=== PATIENT | male | born 1960 | race Caucasian/White ===

== ENCOUNTER 2024-09-29 20:30 | Inpatient (IN) ==
[2024-09-29] MEDS: ONDANSETRON INJ 2 MG/ML 2 ML VIAL IV STA (20:58)
[2024-09-29] MEDS: SODIUM CHLORIDE 0.9% 500 ML IV ONE ×2 (20:58→22:09)
[2024-09-29 21:38] LABS: Basophils # (auto) 0.04 K/uL (0.00-0.20); Basophils % (auto) 0.5 %; Eosinophils # (auto) 0.14 K/uL (0.00-0.50); Eosinophils % (auto) 1.8 %; Hematocrit (blood only) 41.1 % (42.0-52.0); Hemoglobin 14.3 g/dl (14.0-18.0); Immature Granulocytes # (auto) 0.03 K/uL (0.01-0.20); Immature Granulocytes % (auto) 0.4 %; Lymphocytes % (auto) 22.2 %; Mean Corpuscular Hemoglobin 33.6 pg (25.0-34.0); Mean Corpuscular Hgb Conc 34.8 g/dL (32.0-36.0); Mean Corpuscular Volume 96.7 fL (80.0-100.0); Mean Platelet Volume 10.3 fL (9.4-12.4); Monocytes # (auto) 0.58 K/uL (0.11-0.59); Monocytes % (auto) 7.6 %; Neutrophils # (auto) 5.16 K/uL (1.40-6.50); Neutrophils % (auto) 67.5 %; Platelet Count 256 K/uL (130-400); RDW Standard Deviation 49.8 fL (36.4-46.3); Red Blood Count 4.25 M/uL (4.70-6.10); White Blood Count 7.65 K/ul (4.8-10.8)
[2024-09-29 21:42] LABS: Albumin Level 4.2 gm/dl (3.4-5.0); BUN Creatinine Ratio 8.3 (10-20); Bilirubin,Total 0.5 mg/dl (0.2-1.0); Creatinine Clr Calc Pharmacy 6.9 ml/min; Potassium 5.2 mmol/L (3.5-5.1); Total Protein 7.7 gm/dl (6.0-8.3)
[2024-09-29 21:44] LABS: Partial Thromboplastin Ratio 1.1; Partial Thromboplastin Time 29 Seconds (21-31); Prothrombin Time 10.8 Seconds (9.0-12.0)
[2024-09-29] MEDS: CALCIUM GLUCONATE 1,000 MG/60 ML BAG IV STA (21:49)
[2024-09-29] MEDS: SODIUM CHLORIDE 0.9% 500 ML IV SCH (22:08)
[2024-09-29 22:14] LABS: Adenovirus PCR Not Detected (NotDetected); Bordetella parapertussis PCR Not Detected (NotDetected); Bordetella pertussis PCR Not Detected (NotDetected); Chlamydia pneumoniae PCR Not Detected (NotDetected); Coronavirus 229E PCR Not Detected (NotDetected); Coronavirus CoV-2 (COVID19)PCR Not Detected (NotDetected); Coronavirus HKU1 PCR Not Detected (NotDetected); Coronavirus NL63 PCR Not Detected (NotDetected); Coronavirus OC43PCR Not Detected (NotDetected); Human Metapneumovirus PCR Not Detected (NotDetected); Influenza A PCR Not Detected (NotDetected); Influenza B PCR Not Detected (NotDetected); Mycoplasma pneumoniae PCR Not Detected (NotDetected); Parainfluenza Virus 1 PCR Not Detected (NotDetected); Parainfluenza Virus 2 PCR Not Detected (NotDetected); Parainfluenza Virus 3 PCR Not Detected (NotDetected); Parainfluenza Virus 4 PCR Not Detected (NotDetected); Respiratory Syncytial VirusPCR Not Detected (NotDetected); Rhinovirus/Enterovirus PCR Not Detected (NotDetected)
[2024-09-29 22:46] LABS: Appearance Urine Cloudy (Clear); Bacteria Urine Automated None Seen (None Seen); Bilirubin Urine Negative (Negative); Blood Urine 3+ (Negative); Color Urine Yellow; Epithelial Cell Urine Auto 0-2 /hpf (0-2); Glucose Urine UA Negative (Negative); Ketones Urine Trace (Negative); Leukocyte Esterase Urine Trace (Negative); Nitrite Urine Negative (Negative); Protein Urine 2+ (Negative); RBC Urine Automated >20 /hpf (0-2); Specific Gravity Urine 1.008 (1.000-1.030); Urobilinogen Urine Negative (Negative); pH Urine 6.5 (4.5-7.5)
--- NOTE | 2024-09-29 23:38 | CT Scan Report ---
Exam(s): CT ABDOMEN + PELVIS Without Contrast EXAM: CT Abdomen and Pelvis Without Intravenous Contrast CLINICAL HISTORY: Reason for exam: Acute renal insufficiency.. TECHNIQUE: Axial computed tomography images of the abdomen and pelvis without intravenous contrast. CTDI is 19.56 mGy and DLP is 932.59 mGy-cm. Automated exposure control was utilized for the study. A dose lowering technique was utilized adhering to the principles of ALARA. COMPARISON: No relevant prior studies available. FINDINGS: Lung bases: Unremarkable. No mass. No consolidation. ABDOMEN: Liver: Unremarkable. Gallbladder and bile ducts: Unremarkable. No calcified stones. No ductal dilation. Pancreas: Unremarkable. No ductal dilation. Spleen: Unremarkable. No splenomegaly. Adrenals: Unremarkable. No mass. Kidneys and ureters: There is mild bilateral hydroureter and hydronephrosis. No ureterolithiasis is seen. Consider bladder outlet obstruction. 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 Stomach and bowel: There is diverticulosis of the lower left and sigmoid colon without evidence of acute diverticulitis. The appendix is normal. No acute inflammatory changes are seen involving the bowel. No obstruction. PELVIS: Appendix: See above. Bladder: There is asymmetrical circumferential thickening of the urinary bladder wall measuring up to 1.4 cm. The urinary bladder is only partially distended. Consider cystitis versus neoplasm. No stones. Reproductive: Unremarkable as visualized. ABDOMEN and PELVIS: Intraperitoneal space: Unremarkable. No free air. No significant fluid collection. Bones/joints: Mild degenerative changes involving the spine. No acute fracture or subluxation is seen. Soft tissues: Unremarkable. Vasculature: The abdominal aorta is mildly calcified but nondilated. Lymph nodes: Unremarkable. No enlarged lymph nodes. IMPRESSION: 1. There is asymmetrical circumferential thickening of the urinary bladder wall measuring up to 1.4 cm. The urinary bladder is only partially distended. Consider cystitis versus neoplasm. 2. There is mild bilateral hydroureter and hydronephrosis. No ureterolithiasis is seen. Consider bladder outlet obstruction. 3. 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 4. There is diverticulosis of the lower left and sigmoid colon without evidence of acute diverticulitis. The appendix is normal. No acute inflammatory changes are seen involving the bowel. Electronically signed by: Clint Botello MD 09/29/24 23:37 PM
--- NOTE | 2024-09-30 00:56 | Emergency Department Note ---
History of Present Illness General Chief complaint: Vomiting Stated complaint: VOMITING, DIARREHA, DEHYDRATED Time Seen by Provider: 09/29/24 20:54 History of Present Illness Provider Complaint: + nausea, + vomiting and + diarrhea Onset (ago): day(s) 4 Description of Vomiting: no bilious, no blood-streaked, no bloody or no coffee grounds Description of Diarrhea: no mucousy, no tarry, no blood-streaked or no bloody (bright red) Associated Abdominal Pain: No Context: no foreign travel, no possible food poisoning, no recent antibiotic use, no alcohol abuse, no trauma, no NSAID use or no marijuana use Associated symptoms: no myalgias, no chest pain, no cough, no diaphoresis, no fever/chills, no headaches, no malaise, no dysuria or no weakness Home Medications Medication Instructions Recorded Confirmed Type No Known Home Medications 09/30/24 09/30/24 History Allergies Allergy/AdvReac Type Severity Reaction Status Date / Time No Known Allergies Allergy Unverified 09/30/24 00:31 Past Med/Surg History Problem List (Updated 09/30/24 @ 00:56 by Davidson Epps MD) MICHELE (acute kidney injury) (Acute) Social History Smoking Status: Former smoker Preferred Language: Ma[place] Feels Safe at Home: Yes Physical Exam 2 Vital Signs: Vital Signs - 24 hr 09/29/24 20:33 09/29/24 20:46 09/29/24 20:54 Temperature 36.4 C L Temperature Source Temporal Artery Sc an Pulse Rate 73 70 Pulse Rate [Apical ] 64 Pulse Rhythm Pulse Rhythm [Apic al] Regular Pulse Strength [Ap ical] Normal Respiratory Rate 16 20 Respiratory Effort / Characteristics Non-Labored Non-Labored Sponta neous Respiratory Depth Normal Normal Respiratory Patter n Regular Regular Blood Pressure 178/98 H Blood Pressure [Ri ght Arm] 173/112 H Blood Pressure Kiera n 124 Blood Pressure Kiera n [Right Arm] 132 Blood Pressure Pos ition [Right Arm] Pulse Oximetry 97 95 Oxygen Delivery Me thod Room Air Room Air Sepsis Recent Feve r Within 48 Hours No Sepsis New/Unexpla ined Change in Men [place] Status N/A Sepsis Action Take n by Nursing No Action Required 09/29/24 20:54 09/29/24 22:22 09/30/24 00:00 Temperature Temperature Source Pulse Rate 63 Pulse Rate [Apical ] 73 70 Pulse Rhythm Regular Pulse Rhythm [Apic al] Regular Regular Pulse Strength [Ap ical] Normal Normal Respiratory Rate 18 16 18 Respiratory Effort / Characteristics Non-Labored Sponta neous Non-Labored Sponta neous Respiratory Depth Normal Normal Respiratory Patter n Regular Regular Blood Pressure Blood Pressure [Ri ght Arm] 176/99 H 144/81 H Blood Pressure Kiera n Blood Pressure Kiera n [Right Arm] 124 102 Blood Pressure Pos ition [Right Arm] Lying Left Lateral Pulse Oximetry 97 95 Oxygen Delivery Me thod Room Air Room Air Sepsis Recent Feve r Within 48 Hours Sepsis New/Unexpla ined Change in Men [place] Status Sepsis Action Take n by Nursing 09/30/24 00:37 Temperature Temperature Source Pulse Rate 71 Pulse Rate [Apical ] Pulse Rhythm Pulse Rhythm [Apic al] Pulse Strength [Ap ical] Respiratory Rate Respiratory Effort / Characteristics Respiratory Depth Respiratory Patter n Blood Pressure Blood Pressure [Ri ght Arm] Blood Pressure Kiera n Blood Pressure Kiera n [Right Arm] Blood Pressure Pos ition [Right Arm] Pulse Oximetry Oxygen Delivery Me thod Sepsis Recent Feve r Within 48 Hours Sepsis New/Unexpla ined Change in Men [place] Status Sepsis Action Take n by Nursing Physical Exam: Physical Exam GENERAL: oriented to person, place, and time. appears well-developed and well- nourished. She does not appear distressed. HENT: Exam performed. -Head: Normocephalic and atraumatic. -Right Ear: External ear normal. No mastoid erythema -Left Ear: External ear normal. No mastoid erythema -Mouth/Throat: The oropharynx is clear and moist. No trismus in the jaw. No dental abscesses or uvula swelling. No oropharyngeal exudate or tonsillar abscesses. EYES: Conjunctivae and EOM are normal.Right eye exhibits no discharge. Left eye exhibits no discharge. No scleral icterus. NECK: Normal range of motion. Neck supple. No JVD present. No tracheal deviation and normal range of motion present. CV: Normal rate, regular rhythm, normal heart sounds and intact distal pulses. There is no peripheral edema. Palpable radial pulses bue. PULM/CHEST: Effort normal and breath sounds normal. No respiratory distress. No stridor. no wheezes.no rales. -Chest Wall: no tenderness to palpation ABD: The abdomen is soft. Bowel sounds are normal. no distension. No mass is present. There is no tenderness. There is no rebound, no guarding, no South's sign and no tenderness at McBurney's point. Rovsig negative MUSC/SKEL: Normal range of motion. There is no peripheral edema, tenderness or deformity. NEURO: Motor and sensation grossly intact. SKIN: Skin is warm and dry. not diaphoretic. PSYCH: normal mood and affect. Behavior is normal. Judgment and thought content normal. Course Course 2053: The patient was evaluated in room B12. A complete history and physical exam was performed Cardiac monitoring: An order was placed for continuous cardiac monitoring. The monitor shows a rate of 70 with sinus rhythm interpreted by ne 2140: Received a call that the patient's BUN is greater than 100 and creatinine is greater than 12. Patient reports no history of kidney disease. Cramer catheter replaced. Potassium 5.2. Calcium gluconate ordered for the patient. Will obtain CT scan to rule out any obstructive cause of the patient's kidney injury. 2225: Patient's CT scan was marked for stat read on statrad 2353: Vital signs stable. Patient CT shows an asymmetrical circumferential thickening of the urinary bladder wall measuring 1.4 cm in the urinary bladder is only partially distended consider cystitis versus neoplasm per radiology. There is mild bilateral hydroureter and hydronephrosis. No ureterolithiasis seen. Consider bladder outlet obstruction. Discussed the case with Dr. Sykes on-call [facility] nephrology. States continued hydration and have urology evaluate the patient. No other acute interventions at this time. 0002: Spoke with Dr. Gale urology. He states keep the catheter in the patient and he will evaluate the patient in the morning. 0010: Vital signs stable. Spoke with Dr. Ayan Ching hospitalist who will evaluate the patient for admission. Administered Medications Sodium Chloride (Nss) 500 mls @ 125 mls/hr IV .Q4H BRANT Stop: 09/30/24 01:44 Last Admin: 09/29/24 22:08 Dose: 125 mls/hr Documented By: LETA Discontinued Medications Sodium Chloride (Nss) 500 mls @ 999 mls/hr IV .Q31M ONE Stop: 09/29/24 21:24 Last Infusion: 09/29/24 21:29 Dose: Infused Documented By: Admin: 09/29/24 20:58 Dose: 999 mls/hr Documented By: LETA Sodium Chloride (Nss) 500 mls @ 999 mls/hr IV .Q31M ONE Stop: 09/29/24 22:12 Last Infusion: 09/30/24 00:22 Dose: Infused Documented By: Admin: 09/29/24 22:09 Dose: 999 mls/hr Documented By: LETA Calcium Gluconate () 1,000 mg in 60 mls @ 240 mls/hr IV NOW STA Stop: 09/29/24 21:56 Last Infusion: 09/29/24 22:23 Dose: Infused Documented By: Admin: 09/29/24 21:49 Dose: 240 mls/hr Documented By: LETA Ondansetron HCl (Ondansetron Inj 2 Mg/Ml 2 Ml Vial) 4 mg IV NOW STA Stop: 09/29/24 20:55 Last Admin: 09/29/24 20:58 Dose: 4 mg Documented By: LETA Medical Decision Making Laboratory Data Attestation: I reviewed the patient's lab results. 09/29/24 20:48 09/29/24 20:48 Lab Results 09/29/24 09/29/24 09/29/24 Range/Units 20:48 21:08 22:15 WBC 7.65 (4.8-10.8) K/ul RBC 4.25 L (4.70-6.10) M/uL Hgb 14.3 (14.0-18.0) g/dl Hct 41.1 L (42.0-52.0) % MCV 96.7 (80.0-100.0) fL MCH 33.6 (25.0-34.0) pg MCHC 34.8 (32.0-36.0) g/dL RDW Std Deviation 49.8 H (36.4-46.3) fL RDW Coeff of Nadege 14.0 (11.5-14.5) % Plt Count 256 (130-400) K/uL MPV 10.3 (9.4-12.4) fL Immature Gran % (Auto) 0.4 % Neut % (Auto) 67.5 % Lymph % (Auto) 22.2 % [place] % (Auto) 7.6 % Eos % (Auto) 1.8 % Baso % (Auto) 0.5 % Neut # (Auto) 5.16 (1.40-6.50) K/uL Lymph # (Auto) 1.70 (1.20-3.40) K/uL [place] # (Auto) 0.58 (0.11-0.59) K/uL Eos # (Auto) 0.14 (0.00-0.50) K/uL Baso # (Auto) 0.04 (0.00-0.20) K/uL Immature Gran # (Auto) 0.03 (0.01-0.20) K/uL PT 10.8 (9.0-12.0) Seconds INR 1.0 (0.9-1.1) APTT 29 (21-31) Seconds PTT Ratio 1.1 Sodium 139 (136-145) mmol/L Potassium 5.2 H (3.5-5.1) mmol/L Chloride 101 (98-107) mmol/L Carbon Dioxide 21 (21-32) mmol/L Anion Gap 17 H (3-11) BUN 104 H (6-23) mg/dl Creatinine 12.52 H* (0.6-1.4) mg/dl Est Cr Clr Drug Dosing 6.9 ml/min eGFR 4.05 BUN/Creatinine Ratio 8.3 L (10-20) Glucose 94 (70-99(Fasting)) mg/dl Calcium 9.0 (8.6-10.3) mg/dl Total Bilirubin 0.5 (0.2-1.0) mg/dl Direct Bilirubin 0.0 (0-0.2) mg/dl AST 8 L (13-39) U/L ALT 8 (7-52) U/L Alkaline Phosphatase 72 (34-104) U/L Total Protein 7.7 (6.0-8.3) gm/dl Albumin 4.2 (3.4-5.0) gm/dl Lipase 9 L (11-82) U/L Urine Color Yellow Urine Appearance Cloudy A (Clear) Urine pH 6.5 (4.5-7.5) Ur Specific [place] 1.008 (1.000-1.030) Urine Protein 2+ H (Negative) Urine Glucose (UA) Negative (Negative) Urine Ketones Trace H (Negative) Urine Blood 3+ H (Negative) Urine Nitrite Negative (Negative) Urine Bilirubin Negative (Negative) Urine Urobilinogen Negative (Negative) Ur Leukocyte Esterase Trace H (Negative) Urine WBC (Auto) 11-20 H (0-5) /hpf Urine RBC (Auto) >20 H (0-2) /hpf U Hyaline Cast (Auto) 3-5 H (0-2) /lpf U Epithel Cells (Auto) 0-2 (0-2) /hpf Urine Bacteria (Auto) None Seen (None Seen) Adenovirus (PCR) Not Detected (NotDetected) B. pertussis DNA (PCR) Not Detected (NotDetected) B.parapertussis DNA PCR Not Detected (NotDetected) C. pneumoniae DNA (PCR) Not Detected (NotDetected) Coronavirus OC43 (PCR) Not Detected (NotDetected) Coronavirus HKU1 (PCR) Not Detected (NotDetected) Coronavirus 229E (PCR) Not Detected (NotDetected) SARS-CoV-2 (PCR) Not Detected (NotDetected) Coronavirus NL63 (PCR) Not Detected (NotDetected) Human Metapneumovir PCR Not Detected (NotDetected) Influenza Type A (PCR) Not Detected (NotDetected) Influenza Type B (PCR) Not Detected (NotDetected) M. pneumoniae (PCR) Not Detected (NotDetected) Parainfluenza 1 (PCR) Not Detected (NotDetected) Parainfluenza 2 (PCR) Not Detected (NotDetected) Parainfluenza 3 (PCR) Not Detected (NotDetected) Parainfluenza 4 (PCR) Not Detected (NotDetected) RSV (PCR) Not Detected (NotDetected) Entero/Rhino (PCR) Not Detected (NotDetected) Imaging Data Radiologist's Impression: Abdomen/Pelvis CT 09/29/24 21:42 Exam(s): CT ABDOMEN + PELVIS Without Contrast EXAM: CT Abdomen and Pelvis Without Intravenous Contrast CLINICAL HISTORY: Reason for exam: Acute renal insufficiency.. TECHNIQUE: Axial computed tomography images of the abdomen and pelvis without intravenous contrast. CTDI is 19.56 mGy and DLP is 932.59 mGy-cm. Automated exposure control was utilized for the study. A dose lowering technique was utilized adhering to the principles of ALARA. COMPARISON: No relevant prior studies available. FINDINGS: Lung bases: Unremarkable. No mass. No consolidation. ABDOMEN: Liver: Unremarkable. Gallbladder and bile ducts: Unremarkable. No calcified stones. No ductal dilation. Pancreas: Unremarkable. No ductal dilation. Spleen: Unremarkable. No splenomegaly. Adrenals: Unremarkable. No mass. Kidneys and ureters: There is mild bilateral hydroureter and hydronephrosis. No ureterolithiasis is seen. Consider bladder outlet obstruction. 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 Stomach and bowel: There is diverticulosis of the lower left and sigmoid colon without evidence of acute diverticulitis. The appendix is normal. No acute inflammatory changes are seen involving the bowel. No obstruction. PELVIS: Appendix: See above. Bladder: There is asymmetrical circumferential thickening of the urinary bladder wall measuring up to 1.4 cm. The urinary bladder is only partially distended. Consider cystitis versus neoplasm. No stones. Reproductive: Unremarkable as visualized. ABDOMEN and PELVIS: Intraperitoneal space: Unremarkable. No free air. No significant fluid collection. Bones/joints: Mild degenerative changes involving the spine. No acute fracture or subluxation is seen. Soft tissues: Unremarkable. Vasculature: The abdominal aorta is mildly calcified but nondilated. Lymph nodes: Unremarkable. No enlarged lymph nodes. IMPRESSION: 1. There is asymmetrical circumferential thickening of the urinary bladder wall measuring up to 1.4 cm. The urinary bladder is only partially distended. Consider cystitis versus neoplasm. 2. There is mild bilateral hydroureter and hydronephrosis. No ureterolithiasis is seen. Consider bladder outlet obstruction. 3. 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 4. There is diverticulosis of the lower left and sigmoid colon without evidence of acute diverticulitis. The appendix is normal. No acute inflammatory changes are seen involving the bowel. Electronically signed by: Clint Botello MD 09/29/24 23:37 PM ECG Data Attestation: I personally reviewed and interpreted this ECG as follows: Rate (beats per minute): 69 Rhythm: normal sinus Findings: no ST depression, no ST elevation or no prolonged QT Additional Comments: QRS 70 MDM Narrative 2053: The patient was evaluated in room B12. A complete history and physical exam was performed Cardiac monitoring: An order was placed for continuous cardiac monitoring. The monitor shows a rate of 70 with sinus rhythm interpreted by me 2140: Received a call that the patient's BUN is greater than 100 and creatinine is greater than 12. Patient reports no history of kidney disease. Cramer catheter replaced. Potassium 5.2. Calcium gluconate ordered for the patient. Will obtain CT scan to rule out any obstructive cause of the patient's kidney injury. 2225: Patient's CT scan was marked for stat read on statrad 2353: Vital signs stable. Patient CT shows an asymmetrical circumferential thickening of the urinary bladder wall measuring 1.4 cm in the urinary bladder is only partially distended consider cystitis versus neoplasm per radiology. There is mild bilateral hydroureter and hydronephrosis. No ureterolithiasis seen. Consider bladder outlet obstruction. Discussed the case with Dr. Sykes on-call [facility]. States continued hydration and have urology evaluate the patient. No other acute interventions at this time. 0002: Spoke with Dr. Gale urology. He states keep the catheter in the patient and he will evaluate the patient in the morning. 0010: Vital signs stable. Spoke with Dr. Ayan Ching hospitalist who will evaluate the patient for admission. Impression & Plan MICHELE (acute kidney injury) Critical Care Time Critical Care Time: Yes Total Critical Care Time: 64 I have personally spent greater than 64 minutes of critical care time in the direct management of this patient. This includes bedside care, interpretation of diagnostic studies, and testing, discussion with consultants, patient, and family members, and other required patient management activities. This 64 minutes is in excess of all separately billable procedures. Discharge Plan Visit Data Chief Complaint: Vomiting Stated Complaint: VOMITING, DIARREHA, DEHYDRATED ED Provider: Davidson Epps Discharge Problem: MICHELE (acute kidney injury) Patient Disposition: Admitted As Inpatient Forms Stand Alone Forms: My [facility] Prescriptions Prescriptions: No Action No Known Home Medications Referrals Referrals: PCP,NO [Primary Care Provider] -
--- NOTE | 2024-09-30 01:00 | History & Physical Report ---
Date of Service September 30, 2024 Assessment & Plan (1) MICHELE (acute kidney injury): Plan: Noted with JUK=823, Cr=12.42. Unknown baseline. Patient denies pre-existing renal disease to his knowledge but he has been absent from medical care for many years. Likely multifactorial. Suspect pre-renal etiology contributing - patient with n/v/d and poor oral intake. Possible obstructive uropathy contributing as well. CT as above with concern for possible bladder outlet obstruction -Admit to medical with telemetry -Maintain Cramer catheter -Monitor I/Os -Continue IVF - Plasmalyte at 125mL/hr x 2L -BMP q 12 hours to monitor renal function, electrolytes and metabolic profile -Check CK -Check urine Na and Cr to calculate FeNa -Check urine culture -Nephrology consultation appreciated re: MICHELE -Urology consultation appreciated re: possible bladder obstruction (2) Abnormal finding on chest xray: Plan: Possible cavitary lesion in RUL. Patient denies fever, chills, cough or worsening SOB. -Check diagnostic CT chest (3) COPD (chronic obstructive pulmonary disease): Plan: Patient denies cough, worsening SOB or wheeze -Continue to monitor Plan Routine screening -Will order HgbA1C, Lipid panel and PSA -Patient will need to establish with a PCP for routine followup History of Present Illness Chief Complaint: nausea, vomiting, diarrhea, decreased UOP Primary Care Provider: NO PCP Vernon Son is a 64yo male with history of COPD, absent from medical care presenting with several days of nausea with non-bloody/non-bilious vomiting, diarrhea and PO intolerance. Patient reports he has not been able to tolerate anything by mouth for the last several days. He has some generalized abdominal pain as well. Additionally patient reports weak urinary stream, increased frequency and decreased UOP. Denies fever but has chills at baseline. Denies chest pain or palpitations. No hematuria or dysuria. Prior to this patient reports a weak urinary stream with incomplete bladder emptying, occasional dribbling and nocturia of 3 or more voids per night. Allergies Allergy/AdvReac Type Severity Reaction Status Date / Time No Known Allergies Allergy Unverified 09/30/24 00:31 Home Medications Medication Instructions Recorded Confirmed Type No Known Home Medications 09/30/24 09/30/24 History Past Med/Surg History Problem List (Updated 09/30/24 @ 02:57 by Stacy Botello DO) Abnormal finding on chest xray MICHELE (acute kidney injury) (Acute) Medical History (Updated 09/30/24 @ 02:57 by Stacy Botello DO) COPD (chronic obstructive pulmonary disease) Surgical History (Updated 09/30/24 @ 02:55 by Stacy Botello DO) History of vasectomy Family History (Updated 09/30/24 @ 02:55 by Stacy Botello DO) Other Prostate cancer Social History Smoking Status: Former smoker Preferred Language: Italian Feels Safe at Home: Yes Review of Systems Review of Systems: All systems reviewed & are unremarkable except as noted in HPI & below Physical Exam Physical Exam: General: patient resting comfortably, NAD, non-toxic in appearance, AA&O x 4 Skin: warm, dry, intact, no rashes or lesions HEENT: NC/AT, PERRL, EOMI, anicteric sclera, conjunctiva without injection, external ear normal to inspection and nontender, nares patent, moist mucus membranes, dentition intact, no oropharyngeal lesions, neck supple, trachea midline, no LAD, no thyromegaly, no JVD Heart: +S1/S2, regular, no m/r/g Lungs: equal air entry bilaterally, no rales/rhonchi/wheezes Abd: +BS, soft, NT/ND, no masses/organomegaly/ascites, Cramer in place with hematuria in bag Ext: warm, 2+ pulses in UE/LE bilaterally, no clubbing/cyanosis or edema Neuro: nonfocal, patient AA&O x 4, speech intact, no facial droop, moving all extremities on command with equal strength 5/5 Results & Data Results & Data Vital Signs (Past 12 Hours) Vital Signs Temp Pulse Pulse Resp BP BP Pulse Ox 09/30/24 00:37 71 09/30/24 00:00 70 18 144/81 H 95 09/29/24 22:22 73 16 176/99 H 97 09/29/24 20:54 63 18 09/29/24 20:54 64 20 173/112 H 95 09/29/24 20:46 70 09/29/24 20:33 36.4 C L 73 16 178/98 H 97 O2 Del Method 09/30/24 00:37 12/17/24 00:00 Room Air 09/29/24 22:22 Room Air 09/29/24 20:54 09/29/24 20:54 Room Air 09/29/24 20:46 09/29/24 20:33 Room Air Laboratory Results Laboratory Results WBC 7.65 K/ul (4.8-10.8) 09/29/24 20:48 RBC 4.25 M/uL (4.70-6.10) L 09/29/24 20:48 Hgb 14.3 g/dl (14.0-18.0) 09/29/24 20:48 Hct 41.1 % (42.0-52.0) L 09/29/24 20:48 MCV 96.7 fL (80.0-100.0) 09/29/24 20:48 MCH 33.6 pg (25.0-34.0) 09/29/24 20:48 MCHC 34.8 g/dL (32.0-36.0) 09/29/24 20:48 RDW Std Deviation 49.8 fL (36.4-46.3) H 09/29/24 20:48 RDW Coeff of Nadege 14.0 % (11.5-14.5) 09/29/24 20:48 Plt Count 256 K/uL (130-400) 09/29/24 20:48 MPV 10.3 fL (9.4-12.4) 09/29/24 20:48 Immature Gran % (Auto) 0.4 % 09/29/24 20:48 Neut % (Auto) 67.5 % 09/29/24 20:48 Lymph % (Auto) 22.2 % 09/29/24 20:48 Carlisle % (Auto) 7.6 % 09/29/24 20:48 Eos % (Auto) 1.8 % 09/29/24 20:48 Baso % (Auto) 0.5 % 09/29/24 20:48 Neut # (Auto) 5.16 K/uL (1.40-6.50) 09/29/24 20:48 Lymph # (Auto) 1.70 K/uL (1.20-3.40) 09/29/24 20:48 Carlisle # (Auto) 0.58 K/uL (0.11-0.59) 09/29/24 20:48 Eos # (Auto) 0.14 K/uL (0.00-0.50) 09/29/24 20:48 Baso # (Auto) 0.04 K/uL (0.00-0.20) 09/29/24 20:48 Immature Gran # (Auto) 0.03 K/uL (0.01-0.20) 09/29/24 20:48 PT 10.8 Seconds (9.0-12.0) 09/29/24 20:48 INR 1.0 (0.9-1.1) 09/29/24 20:48 APTT 29 Seconds (21-31) 09/29/24 20:48 PTT Ratio 1.1 09/29/24 20:48 Sodium 139 mmol/L (136-145) 09/29/24 20:48 Potassium 5.2 mmol/L (3.5-5.1) H 09/29/24 20:48 Chloride 101 mmol/L (98-107) 09/29/24 20:48 Carbon Dioxide 21 mmol/L (21-32) 09/29/24 20:48 Anion Gap 17 (3-11) H 09/29/24 20:48 BUN 104 mg/dl (6-23) H 09/29/24 20:48 Creatinine 12.52 mg/dl (0.6-1.4) H* 09/29/24 20:48 Est Cr Clr Drug Dosing 6.9 ml/min 09/29/24 20:48 eGFR 4.05 09/29/24 20:48 BUN/Creatinine Ratio 8.3 (10-20) L 09/29/24 20:48 Glucose 94 mg/dl (70-99(Fasting)) 09/29/24 20:48 Calcium 9.0 mg/dl (8.6-10.3) 09/29/24 20:48 Total Bilirubin 0.5 mg/dl (0.2-1.0) 09/29/24 20:48 Direct Bilirubin 0.0 mg/dl (0-0.2) 09/29/24 20:48 AST 8 U/L (13-39) L 09/29/24 20:48 ALT 8 U/L (7-52) 09/29/24 20:48 Alkaline Phosphatase 72 U/L (34-104) 09/29/24 20:48 Total Protein 7.7 gm/dl (6.0-8.3) 09/29/24 20:48 Albumin 4.2 gm/dl (3.4-5.0) 09/29/24 20:48 Lipase 9 U/L (11-82) L 09/29/24 20:48 Urine Color Yellow 09/29/24 22:15 Urine Appearance Cloudy (Clear) A 09/29/24 22:15 Urine pH 6.5 (4.5-7.5) 09/29/24 22:15 Ur Specific [place] 1.008 (1.000-1.030) 09/29/24 22:15 Urine Protein 2+ (Negative) H 09/29/24 22:15 Urine Glucose (UA) Negative (Negative) 09/29/24 22:15 Urine Ketones Trace (Negative) H 09/29/24 22:15 Urine Blood 3+ (Negative) H 09/29/24 22:15 Urine Nitrite Negative (Negative) 09/29/24 22:15 Urine Bilirubin Negative (Negative) 09/29/24 22:15 Urine Urobilinogen Negative (Negative) 09/29/24 22:15 Ur Leukocyte Esterase Trace (Negative) H 09/29/24 22:15 Urine WBC (Auto) 11-20 /hpf (0-5) H 09/29/24 22:15 Urine RBC (Auto) >20 /hpf (0-2) H 09/29/24 22:15 U Hyaline Cast (Auto) 3-5 /lpf (0-2) H 09/29/24 22:15 U Epithel Cells (Auto) 0-2 /hpf (0-2) 09/29/24 22:15 Urine Bacteria (Auto) None Seen (None Seen) 09/29/24 22:15 Adenovirus (PCR) Not Detected (NotDetected) 09/29/24 21:08 B. pertussis DNA (PCR) Not Detected (NotDetected) 09/29/24 21:08 B.parapertussis DNA PCR Not Detected (NotDetected) 09/29/24 21:08 C. pneumoniae DNA (PCR) Not Detected (NotDetected) 09/29/24 21:08 Coronavirus OC43 (PCR) Not Detected (NotDetected) 09/29/24 21:08 Coronavirus HKU1 (PCR) Not Detected (NotDetected) 09/29/24 21:08 Coronavirus 229E (PCR) Not Detected (NotDetected) 09/29/24 21:08 SARS-CoV-2 (PCR) Not Detected (NotDetected) 09/29/24 21:08 Coronavirus NL63 (PCR) Not Detected (NotDetected) 09/29/24 21:08 Human Metapneumovir PCR Not Detected (NotDetected) 09/29/24 21:08 Influenza Type A (PCR) Not Detected (NotDetected) 09/29/24 21:08 Influenza Type B (PCR) Not Detected (NotDetected) 09/29/24 21:08 M. pneumoniae (PCR) Not Detected (NotDetected) 09/29/24 21:08 Parainfluenza 1 (PCR) Not Detected (NotDetected) 09/29/24 21:08 Parainfluenza 2 (PCR) Not Detected (NotDetected) 09/29/24 21:08 Parainfluenza 3 (PCR) Not Detected (NotDetected) 09/29/24 21:08 Parainfluenza 4 (PCR) Not Detected (NotDetected) 09/29/24 21:08 RSV (PCR) Not Detected (NotDetected) 09/29/24 21:08 Entero/Rhino (PCR) Not Detected (NotDetected) 09/29/24 21:08 Impressions Abdomen/Pelvis CT 09/29/24 21:42 Exam(s): CT ABDOMEN + PELVIS Without Contrast EXAM: CT Abdomen and Pelvis Without Intravenous Contrast CLINICAL HISTORY: Reason for exam: Acute renal insufficiency.. TECHNIQUE: Axial computed tomography images of the abdomen and pelvis without intravenous contrast. CTDI is 19.56 mGy and DLP is 932.59 mGy-cm. Automated exposure control was utilized for the study. A dose lowering technique was utilized adhering to the principles of ALARA. COMPARISON: No relevant prior studies available. FINDINGS: Lung bases: Unremarkable. No mass. No consolidation. ABDOMEN: Liver: Unremarkable. Gallbladder and bile ducts: Unremarkable. No calcified stones. No ductal dilation. Pancreas: Unremarkable. No ductal dilation. Spleen: Unremarkable. No splenomegaly. Adrenals: Unremarkable. No mass. Kidneys and ureters: There is mild bilateral hydroureter and hydronephrosis. No ureterolithiasis is seen. Consider bladder outlet obstruction. 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 Stomach and bowel: There is diverticulosis of the lower left and sigmoid colon without evidence of acute diverticulitis. The appendix is normal. No acute inflammatory changes are seen involving the bowel. No obstruction. PELVIS: Appendix: See above. Bladder: There is asymmetrical circumferential thickening of the urinary bladder wall measuring up to 1.4 cm. The urinary bladder is only partially distended. Consider cystitis versus neoplasm. No stones. Reproductive: Unremarkable as visualized. ABDOMEN and PELVIS: Intraperitoneal space: Unremarkable. No free air. No significant fluid collection. Bones/joints: Mild degenerative changes involving the spine. No acute fracture or subluxation is seen. Soft tissues: Unremarkable. Vasculature: The abdominal aorta is mildly calcified but nondilated. Lymph nodes: Unremarkable. No enlarged lymph nodes. IMPRESSION: 1. There is asymmetrical circumferential thickening of the urinary bladder wall measuring up to 1.4 cm. The urinary bladder is only partially distended. Consider cystitis versus neoplasm. 2. There is mild bilateral hydroureter and hydronephrosis. No ureterolithiasis is seen. Consider bladder outlet obstruction. 3. 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 4. There is diverticulosis of the lower left and sigmoid colon without evidence of acute diverticulitis. The appendix is normal. No acute inflammatory changes are seen involving the bowel. Electronically signed by: Clint Botello MD 09/29/24 23:37 PM Chest X-Ray 09/29/24 23:58 EXAM: XR chest 1V portable CLINICAL HISTORY: MICHELE [facility] TECHNIQUE: Radiograph of chest was acquired. COMPARISON: None. FINDINGS: Consolidation is noted in the right peripheral upper zone. Suspicious lucency is noted within it, possible cavitation. Rest of the lung delgado do not reveal any obvious abnormality. Both costophrenic angles are not included in the radiography field of view. Visualized cardiomediastinal silhouette is within normal limits. No acute osseous abnormality. IMPRESSION: 1. Consolidation is noted in the right peripheral upper zone. Suspicious lucency is noted within it, possible cavitation. Rest of the visualized lung delgado do not reveal any obvious abnormality. 2. Both costophrenic angles are not included in the radiography field of view. Suboptimal evaluation due to incomplete radiographic field of view. Electronically signed by Sherif Taylor 09-30-2024 02:38 AM Code Status & VTE Plan VTE Prophylaxis Plan VTE Prophylaxis will be ordered: Yes PG Care Time/CCT Total # of Minutes Spent Total Time Spent with Patient: Total time spent is greater than 50% in coordination of care (as documented) at patient's floor/unit and/or counseling patient: Coding Level of Care Code 96019 INT INP/OBS CARE 2/55MIN Diagnoses MICHELE (acute kidney injury) N17.9 Abnormal finding on chest xray R93.89 COPD (chronic obstructive pulmonary disease) J44.9
--- NOTE | 2024-09-30 02:38 | XRay Report ---
EXAM: XR chest 1V portable CLINICAL HISTORY: MICHELE [facility] TECHNIQUE: Radiograph of chest was acquired. COMPARISON: None. FINDINGS: Consolidation is noted in the right peripheral upper zone. Suspicious lucency is noted within it, possible cavitation. Rest of the lung delgado do not reveal any obvious abnormality. Both costophrenic angles are not included in the radiography field of view. Visualized cardiomediastinal silhouette is within normal limits. No acute osseous abnormality. IMPRESSION: 1. Consolidation is noted in the right peripheral upper zone. Suspicious lucency is noted within it, possible cavitation. Rest of the visualized lung delgado do not reveal any obvious abnormality. 2. Both costophrenic angles are not included in the radiography field of view. Suboptimal evaluation due to incomplete radiographic field of view. Electronically signed by Sherif Taylor 09-30-2024 02:38 AM
[2024-09-30 03:27] LABS: Prostate SpecificAg Diagnostic 1.521 ng/ml (0-4)
[2024-09-30] MEDS: PLASMA-LYTE A 1,000 ML IV SCH (03:30)
[2024-09-30] MEDS: ONDANSETRON INJ 2 MG/ML 2 ML VIAL IV PRN (03:33)
[2024-09-30 04:54] LABS: Adenovirus F 40/41 PCR Not Detected (NotDetected); Astrovirus PCR Not Detected (NotDetected); Campylobacter PCR Not Detected (NotDetected); Cryptosporidium PCR Not Detected (NotDetected); Cyclospora cayetanensis PCR Not Detected (NotDetected); Entamoeba histolytica PCR Not Detected (NotDetected); Enteroaggregative E.coli(EAEC) Not Detected (NotDetected); Enteropathogenic E.coli (EPEC) Not Detected (NotDetected); Enterotoxigenic E.coli (ETEC) Not Detected (NotDetected); Giardia lamblia PCR Not Detected (NotDetected); Plesiomonas shigelloides PCR Not Detected (NotDetected); Rotavirus A PCR Not Detected (NotDetected); Salmonella PCR Not Detected (NotDetected); Sapovirus PCR Not Detected (NotDetected); Shiga-like Toxin E.coli (STEC) Not Detected (NotDetected); Shigella/Enteroinvasive E.coli Not Detected (NotDetected); Vibrio cholerae PCR Not Detected (NotDetected); Vibrio species PCR Not Detected (NotDetected); Yersinia enterocolitica PCR Not Detected (NotDetected)
[2024-09-30 04:57] LABS: Norovirus GI/GII PCR DETECTED (NotDetected)
[2024-09-30 05:05] LABS: Free PSA % 36.2 %
[2024-09-30] MEDS: MELATONIN 3 MG TAB PO PRN (05:28)
[2024-09-30 08:29] LABS: Basophils # (auto) 0.02 K/uL (0.00-0.20); Basophils % (auto) 0.2 %; Eosinophils # (auto) 0.05 K/uL (0.00-0.50); Eosinophils % (auto) 0.5 %; Hematocrit (blood only) 36.6 % (42.0-52.0); Hemoglobin 12.5 g/dl (14.0-18.0); Immature Granulocytes # (auto) 0.03 K/uL (0.01-0.20); Immature Granulocytes % (auto) 0.3 %; Lymphocytes # (auto) 0.84 K/uL (1.20-3.40); Lymphocytes % (auto) 8.5 %; Mean Corpuscular Hemoglobin 32.7 pg (25.0-34.0); Mean Corpuscular Hgb Conc 34.2 g/dL (32.0-36.0); Mean Corpuscular Volume 95.8 fL (80.0-100.0); Mean Platelet Volume 10.2 fL (9.4-12.4); Monocytes # (auto) 0.62 K/uL (0.11-0.59); Monocytes % (auto) 6.3 %; Neutrophils # (auto) 8.33 K/uL (1.40-6.50); Neutrophils % (auto) 84.2 %; Platelet Count 223 K/uL (130-400); RDW Standard Deviation 49.9 fL (36.4-46.3); Red Blood Count 3.82 M/uL (4.70-6.10); White Blood Count 9.89 K/ul (4.8-10.8)
[2024-09-30 08:40] LABS: Estimated Average Glucose 117 mg/dl; Hemoglobin A1C 5.7 % (4.5-5.6)
[2024-09-30 08:47] LABS: BUN Creatinine Ratio 7.9 (10-20); Calcium 8.5 mg/dl (8.6-10.3); Chol HDL Ratio 4.2 (0-5); Creatinine Clr Calc Pharmacy 6.7 ml/min; Potassium 6.4 mmol/L (3.5-5.1)
--- NOTE | 2024-09-30 11:29 | Communication Note ---
Date of Service: September 30, 2024 Patient seen and examined H&P reviewed: Patient admitted after midnight Labs reviewed Radiology reviewed Patient denies any chest pain, cough, weight loss, night sweats, fever, chills. He states diarrhea is improving. Denies any nausea or vomiting at present. 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 Denies any food in a restaurant or truck stop or any outside facility. He always eats home-cooked food. without any symptoms. He does not have a PCP General: No acute distress Psych: Awake and alert, oriented x 3 HEENT: Anicteric sclera, moist oral mucosa CVS: Regular rate and rhythm Lungs: Bilateral air entry, no wheezing noted, no crackles Abdomen: Soft, nontender, no rebound, no guarding : Cramer with blood noted Ext: No lower extremity edema, no calf tenderness Neuro: No focal motor deficits noted Assessment and plan: #MICHELE #Bilateral hydronephrosis with suspicion for bladder outlet obstruction #Possible cavitary lesion in right upper lobe noted on chest x-ray #COPD #History of tobacco use: Patient reports quitting 2 years ago #Norovirus infection #Hyperkalemia #Metabolic acidosis Awaiting nephrology and urology consult and recommendations I spoke with heart specialist Dr. Gates: She is planning on dialyzing patient today: She is going to speak with ICU for insertion of dialysis catheter In the meantime treat with Lokelma x 1 dose, D50 plus IV insulin plus calcium gluconate Low potassium diet PSA is normal Continue Cramer catheter Await urology consult and recommendations: CT abdomen pelvis shows asymmetrical circumferential thickening of the urinary bladder: Concern for cystitis versus neoplasm, mild bilateral hydroureter and hydronephrosis. No ureteral lithiasis seen. Urine culture sent from ED: Follow-up results CT chest shows right upper lobe multifocal irregular densities are indeterminate but favor scarring and not typical for pneumonia. Patient denies any cough, weight loss or night sweats. DuoNebs as needed for now Monitor renal function and electrolytes Avoid nephrotoxic agents including NSAIDs Care plan discussed with patient, nursing staff and family including updated at bedside
--- NOTE | 2024-09-30 11:49 | Urology Consultation ---
Date of Consultation September 30, 2024 Assessment & Plan (1) MICHELE (acute kidney injury): (2) Bilateral hydronephrosis: 64-year-old male presenting with nausea, vomiting, and diarrhea admitted for MICHELE of 12.52. Patient afebrile, hemodynamically stable. Labs today reviewedcreatinine increased to 13.02 (baseline unknown), WBC 9.89, hemoglobin 12.5. Urinalysis showed trace LE, 11-20 WBC, >20 RBC and negative for bacteria. Urine culture is pending. Recommend consider initiating antibiotics and narrow per sensitivity data when available. Cramer catheter in place to maximize drainage, urine output 125 mL documented so farcontinue with Cramer catheter. CT reviewed and demonstrates irregular bladder wall thickening, bilateral hydronephrosis, no ureteral calculi visualized. MICHELE likely multifactorial, nephrology consult pending. Given worsening creatinine despite conservative management with fluids and Cramer catheter, discussed surgical intervention with bilateral ureteral stent placements to maximize drainage. He is agreeable to proceed with intervention. Proceed to OR for cystoscopy and bilateral ureteral stent placement. Risks and benefits of procedure to be reviewed with patient by Dr. Fuentes. Keep n.p.o. for procedure later today. Will cover with 1 g of ceftriaxone preoperatively. Continue supportive care medical management per hospital medicine service. History of Present Illness Reason for Consultation: ?bladder outlet obstruction with MICHELE Requesting Physician: Stacy Botello Attending Physician: Cassius Hall MD History of Present Illness This is a 64-year-old male with history of COPD, absent from medical care, who presented to the emergency department today for evaluation of several day history of nausea, vomiting and diarrhea. On arrival to ED, he was afebrile, hypertensive. Lab work showed a creatinine of 12.52 (baseline unknown), potassium 5.2, WBC 7.65, hemoglobin 14.3. Urinalysis showed 2+ protein, 3+ blood, trace LE, 11-20 WBC, >20 RBC and negative for bacteria. Viral PCR was negative. He underwent CT abdomen and pelvis without contrast which demonstrated asymmetrical circumferential thickening of the urinary bladder wall measuring up to 1.4 cm. Mild bilateral hydroureter and hydronephrosis. No ureteral stones visualized. Cross fused ectopic kidney. ED course: Cramer catheter was placed and he was treated with IV fluids, calcium gluconate and ondansetron. He was admitted to the hospital medicine service for MICHELE. Urology is consulted for MICHELE, concern for bladder outlet obstruction. Patient seen and examined at bedside this morning. He is awake and sitting up in bed. He reports urinary discomfort, frequency, nocturia and weaker stream prior to arrival. Currently reports bladder discomfort and discomfort from Cramer catheter. Denies gross hematuria prior to catheter. Denies nausea, vomiting, fever or chills at present. His father has a history of prostate cancer. Allergies Allergy/AdvReac Type Severity Reaction Status Date / Time No Known Allergies Allergy Unverified 09/30/24 00:31 Home Medications Medication Instructions Recorded Confirmed Type No Known Home Medications 09/30/24 09/30/24 History Patient History Medical History COPD (chronic obstructive pulmonary disease) Surgical History History of vasectomy Family History Other Prostate cancer Social History Smoking Status: Former smoker Second Hand Exposure: Yes; Do You Dip or Chew Tobacco: No; Tobacco Cessation Education Requested by Patient: No Hx Alcohol Use: No Hx Substance Use: Yes Last Used Substance: Days (ago) Preferred Language: Yakut Globe Changer Required: No Beliefs That Will Affect Care: None Current Living Situation: Spouse Other Information That Helps Us Care for You: No Feels Safe at Home: Yes Safety Concerns: Feels Safe At This Time Assistive Devices: Glasses Assistive Devices Comment: reading glasses Review of Systems Review of Systems: All systems reviewed & are unremarkable except as noted in HPI & below Physical Exam Constitutional: no acute distress Respiratory: normal respiratory effort; no respiratory distress and no labored breathing Gastrointestinal (Abdomen): Inspection/Auscultation: abdomen normal to inspection Musculoskeletal: Head/Neck/Chest: normocephalic Neurologic: moves all extremities and awake Psychiatric: Orientation: alert and oriented x 3 Genitourinary: Cramer intact, minimal urine output in the collection bag, blood tinged. Results & Data Vital Signs (Past 12 Hours) Vital Signs Temp Pulse Pulse Pulse Resp BP BP 09/30/24 07:58 36.6 C 71 18 145/81 H 09/30/24 07:15 84 09/30/24 02:59 09/30/24 02:48 36.5 C 76 18 163/83 H 09/30/24 02:40 74 09/30/24 01:58 64 17 140/82 09/30/24 00:37 71 09/30/24 00:00 70 18 144/81 H Pulse Ox O2 Del Method 09/30/24 07:58 93 Room Air 09/30/24 07:15 09/30/24 02:59 Room Air 09/30/24 02:48 98 Room Air 09/30/24 02:40 09/30/24 01:58 99 Room Air 09/30/24 00:37 09/30/24 00:00 95 Room Air PG Care Time/CCT Total # of Minutes Spent Total Time Spent with Patient: Total time spent is greater than 50% in coordination of care (as documented) at patient's floor/unit and/or counseling patient: Coding Level of Care Code 53560 IN/OBS CONSULT LVL 4,60M Diagnoses MICHELE (acute kidney injury) N17.9 Bilateral hydronephrosis N13.30
--- NOTE | 2024-09-30 11:54 | CT Scan Report ---
CT OF THE CHEST WITHOUT IV CONTRAST CLINICAL HISTORY: abnormal CXR COMPARISON STUDY: Chest radiograph September 30, 2024. CT DOSE: 414.39 mGy.cm TECHNIQUE: Axial images of the chest were obtained without IV contrast. Images were reviewed in the axial, sagittal, and coronal planes. IV contrast was not administered for this examination. Automat ed exposure control was utilized for the study. A dose lowering technique was utilized adhering to t he principles of ALARA. FINDINGS: Prominent mediastinal and right hilar lymph nodes are present. Index right paratracheal ly mph node on image 23 of 277 measures 1.4 x 1 cm. A superior right hilar node on image 107 measures 1 x 1 cm. Size of the heart is normal. There is no pericardial effusion. Small hiatal hernia. Mild dist al esophageal wall thickening is present. There is no pneumothorax. Trace bilateral pleural effusions . Moderate upper lobe predominant emphysema is present. There is no central obstructing mass. Right u pper lobe volume loss is noted with multifocal irregular right upper lobe densities. These include a 3.4 x 1.6 cm density on image 70 of 277. No cavitation. Subpleural left apical opacity favors scarrin g. No suspicious lesions within the bony thorax are present. Visualized portions of the upper abdomen are unremarkable on unenhanced exam. IMPRESSION: 1. Right upper lobe volume loss with multifocal irregular densities which measure up to 3.4 x 1.6 cm. These are indeterminate but favor scarring. The appearance is not typical for pneumonia. Although wi thin the differential, a neoplastic etiology is considered less likely. A follow-up chest CT in 3 mon ths to ensure stability is recommended. 2. Emphysema. 3. Prominent mediastinal and right hilar lymph nodes which can be assessed on follow-up CT to ensure stability. 4. Trace bilateral pleural effusions. ACT 112: Positive. There are findings on this exam that require communication between the performing entity and the patient following Patient Test Result Information Act ([place] Act 112) guidelines. Electronically signed by: Prashant Johnston M.D. 09/30/2024 11:52 AM
[2024-09-30] MEDS: CALCIUM GLUCONATE 1,000 MG/60 ML BAG IV STA (12:26)
--- NOTE | 2024-09-30 12:43 | Nephrology Consultation ---
Date of Consultation September 30, 2024 Assessment & Plan (1) MICHELE (acute kidney injury): (2) Hyperkalemia: (3) Bilateral hydronephrosis: (4) Metabolic acidosis: Plan 64 y o male with no known past medical history as he has not been to a physician for many years, admitted going nausea, vomiting, diarrhea, decreased urine output for 3 days and ongoing lower urinary tract symptoms for a while, noted to have MICHELE, hyperkalemia, metabolic acidosis, low urine output. Urinalysis with proteinuria and microscopic hematuria and CT abdomen pelvis concerning for bilateral mild hydronephrosis without obstructing urolithiasis but noted to have bladder outlet obstruction. Significant abnormality in kidney function could be end-stage renal disease versus MICHELE as no prior record available to decide one way or the other. Lab this morning showing progressive worsening of kidney function, creatinine 13.1, potassium 6.4 when ongoing oliguria and elevated blood pressure. --Lokelma was already ordered this morning and also started on regular insulin, D50. Repeat potassium is pending --Considering azotemia, some uremic symptom as well as critical hyperkalemia and metabolic acidosis, will increase arrange for emergency dialysis. Appreciate intensive care help with getting temporary dialysis catheter. -- Urology was consulted for possible ureteral stent for mild bilateral hydronephrosis bladder outlet obstruction. -- Dose medications for EGFR less than 10 -- Left arm nephrology precaution for future vascular access. -- Repeat urinalysis tomorrow, if proteinuria and hematuria persist, will consider serology. Thank you for allowing me to participate in your patient's care. It was a pleasure to see Vernon. History of Present Illness Reason for Consultation: MICHELE, Hyperkalemia, Metabolic acidosis Attending Physician: Cassius Hall MD History of Present Illness Mr. Vernon Son is a 64 yo male admitted to the hospital with several days of nausea, vomiting, diarrhea, acute kidney injury, hyperkalemia and metabolic acidosis. Nephrology consult requested for management of above. EMR r ecords were reviewed in detail during patient's visit. Vernon presents to ER yesterday with few days history of nausea, vomiting, diarrhea and decreased urine output and increased frequency of urination. Reports he was otherwise feeling well and and was in his usual health until just few days ago. Denied gross hematuria, flank pain. Denied fever or chills. Since admission blood pressure has been variable but no hypotensive episode. No shortness of breath, fever or chills. Reports noticing weak urinary stream with incomplete bladder emptying, occasional dribbling and nocturia of 3 or more voids per night. Admission lab was notable for creatinine 12.5, BUN 104, potassium 5.2. Urinalysis with 1+ proteinuria, microscopic hematuria with >30 RBC/HPF. CT abdomen pelvis showed concern for mild bilateral hydronephrosis and bladder outlet obstruction with BPH. He was started on IV normal saline since admission, received total 3 L currently on Plasma-Lyte. He has not been on any medication except taking Aleve over last few days. No prior record available as he has not been to a physician for many years, in fact he could not recall when last time he was seen by physician but reports otherwise has been feeling well. No known family history of CKD or ESKD. History of heavy smoking for many years, 2 to 3 packs a day but quit smoking 2 years ago. 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 No known history of hypertension diabetes or coronary artery disease or other chronic illnesses as he has not been going to physician for years. A1c was 5.4. Blood pressure has been high. He reports significant discomfort with the Cramer catheter but otherwise asymptomatic. Denies nausea, anorexia, abdominal pain. Allergies Allergy/AdvReac Type Severity Reaction Status Date / Time No Known Allergies Allergy Unverified 09/30/24 00:31 Home Medications Medication Instructions Recorded Confirmed Type No Known Home Medications 09/30/24 09/30/24 History Patient History Medical History COPD (chronic obstructive pulmonary disease) Surgical History History of vasectomy Family History Other Prostate cancer Social History Smoking Status: Former smoker Second Hand Exposure: Yes; Do You Dip or Chew Tobacco: No; Tobacco Cessation Education Requested by Patient: No Hx Alcohol Use: No Hx Substance Use: Yes Last Used Substance: Days (ago) Preferred Language: Guatemalan Import/Export Analyst Required: No Beliefs That Will Affect Care: None Current Living Situation: Spouse Other Information That Helps Us Care for You: No Feels Safe at Home: Yes Safety Concerns: Feels Safe At This Time Assistive Devices: Glasses Assistive Devices Comment: reading glasses Review of Systems Review of Systems: ROS was otherwise unremarkable Physical Exam Constitutional: WD/WN, vitals as above + ill appearing; no acute distress Eyes: + anicteric sclerae Neck: normal visual inspection Respiratory: normal respiratory effort; no respiratory distress and no cough Auscultation: lungs clear to auscultation bilaterally Cardiovascular: Rate/Rhythm: regular rate and regular rhythm Heart Sounds: normal S1 and normal S2 Extremities: no edema Gastrointestinal (Abdomen): Inspection/Auscultation: abdomen normal to inspection and normal bowel sounds Percussion/Palpation: + abdomen tender and abdomen soft; no guarding and abdomen not rigid Musculoskeletal: Extremities: extremities normal to inspection Skin: no rashes, warm and dry Neurologic: no focal motor deficits Psychiatric: Orientation: alert and oriented x 3 Affect: euthymic affect Genitourinary: Cramer catheter in place. Results & Data Vital Signs (Past 12 Hours) Vital Signs Temp Pulse Pulse Resp BP BP Pulse Ox 09/30/24 12:28 36.5 C 83 18 168/79 H 96 09/30/24 07:58 36.6 C 71 18 145/81 H 93 09/30/24 07:15 84 09/30/24 02:59 09/30/24 02:48 36.5 C 76 18 163/83 H 98 09/30/24 02:40 74 09/30/24 01:58 64 17 140/82 99 O2 Del Method 09/30/24 12:28 Room Air 09/30/24 07:58 Room Air 09/30/24 07:15 09/30/24 02:59 Room Air 09/30/24 02:48 Room Air 09/30/24 02:40 09/30/24 01:58 Room Air PG Care Time/CCT Total # of Minutes Spent Total Time Spent with Patient: Total time spent is greater than 50% in coordination of care (as documented) at patient's floor/unit and/or counseling patient: Coding Level of Care Code 03982 INT INP/OBS CARE 3/75MIN Diagnoses MICHELE (acute kidney injury) N17.9 Hyperkalemia E87.5 Bilateral hydronephrosis N13.30 Metabolic acidosis E87.20
[2024-09-30] MEDS ORDERED: Nursing to Pharmacy Communication SCH (12:45)
[2024-09-30] MEDS: DEXTROSE 50% 50 ML SYRINGE IV STA ×2 (12:59→13:06)
--- NOTE | 2024-09-30 12:59 | Anesthesiology Consultation ---
Date of Service September 30, 2024 Assessment & Plan Chart Review Chart Review: Acceptable Risk for Surgery and Patient NOT seen in Pre Admission Testing History Surgery Operation Date: 09/30/24 10:00 Proposed Procedures p Cystoscopy, Bilateral Ureteral Stent Placement - Hari Fuentes MD Height/Weight Height: 6 ft 2 in Weight: 84.2 kg Allergies Allergy/AdvReac Type Severity Reaction Status Date / Time No Known Allergies Allergy Unverified 09/30/24 00:31 Medications Home Medications Medication Instructions Recorded Confirmed Last Taken No Known Home Medications 09/30/24 09/30/24 Unknown Active Medications Generic Name Dose Route Start Last Admin Trade Name Freq PRN Reason Stop Dose Admin Melatonin 3 mg 09/30/24 04:47 09/30/24 05:28 Melatonin 3 Mg Tab PO 10/30/24 04:46 3 mg HS PRN Administration Sleep Ondansetron HCl 4 mg 09/30/24 02:42 09/30/24 03:33 Ondansetron Inj 2 Mg/Ml 2 Ml Vial IV 10/30/24 02:41 4 mg Q6H PRN Administration Nausea Past Medical History Medical History COPD (chronic obstructive pulmonary disease) Past Family History Family History Other Prostate cancer Past Surgical History Surgical History History of vasectomy Social History Smoking Status: Former smoker Do You Dip or Chew Tobacco: No Hx Alcohol Use: No Hx Substance Use: Yes substance use type: marijuana Last Used Substance: Days (ago) Physical Exam Vital Signs Last Vital Signs Temp 36.5 C 09/30/24 12:28 Pulse 83 09/30/24 12:28 Resp 18 09/30/24 12:28 BP 168/79 H 09/30/24 12:28 Pulse Ox 96 09/30/24 12:28 O2 Del Method Room Air 09/30/24 12:28 Testing Laboratory Results 09/30/24 08:12 09/30/24 08:12 PT 10.8 Seconds (9.0-12.0) 09/29/24 20:48 INR 1.0 (0.9-1.1) 09/29/24 20:48 APTT 29 Seconds (21-31) 09/29/24 20:48 Hemoglobin A1c 5.7 % (4.5-5.6) H 09/30/24 08:12 Urine Color Yellow 09/29/24 22:15 Urine Appearance Cloudy (Clear) A 09/29/24 22:15 Urine pH 6.5 (4.5-7.5) 09/29/24 22:15 Ur Specific [place] 1.008 (1.000-1.030) 09/29/24 22:15 Urine Protein 2+ (Negative) H 09/29/24 22:15 Urine Glucose (UA) Negative (Negative) 09/29/24 22:15 Urine Ketones Trace (Negative) H 09/29/24 22:15 Urine Nitrite Negative (Negative) 09/29/24 22:15 Ur Leukocyte Esterase Trace (Negative) H 09/29/24 22:15 Urine WBC (Auto) 11-20 /hpf (0-5) H 09/29/24 22:15 Urine RBC (Auto) >20 /hpf (0-2) H 09/29/24 22:15 U Hyaline Cast (Auto) 3-5 /lpf (0-2) H 09/29/24 22:15 U Epithel Cells (Auto) 0-2 /hpf (0-2) 09/29/24 22:15 Urine Bacteria (Auto) None Seen (None Seen) 09/29/24 22:15
[2024-09-30] MEDS: INSULIN HUMAN REGULAR PER UNIT 10 UNITS in SYRINGE 9.9 ML IV STA (13:00)
[2024-09-30] MEDS: SODIUM BICARBONATE 8.4% 100 MEQ in DEXTROSE 5% 1,000 ML IV SCH (13:00)
[2024-09-30] MEDS: SODIUM ZIRCONIUM CYCLOSILICATE 10 GM PACKET PO ONE (13:06)
[2024-09-30] MEDS ORDERED: cefTRIAXone SODIUM 1,000 MG/50 ML BAG IV ONE (14:00)
[2024-09-30] MEDS: cefTRIAXone SODIUM 2,000 MG/50 ML BAG IV SCH (14:30)
--- NOTE | 2024-09-30 14:40 | Critical Care Consultation ---
Date of Consultation September 30, 2024 Assessment & Plan (1) MICHELE (acute kidney injury): (2) Hyperkalemia: Plan Impression: 64-year-old male with acute renal failure and hyperkalemia. May be prerenal as well as ATN. The patient requires renal replacement therapy. He is unable to get a tunneled vascular access catheter currently due to his hyperkalemia and temporary access is required. Recommendations: 1. Risks and benefits of temporary HD catheter were discussed with the patient in detail and consent was obtained. He understands risk of bleeding, infection, damage to lung structures were damaged to vascular structures requiring additional intervention or procedures. He is agreeable to proceed. There are no alternatives currently. 2. Acute renal failure: Management per nephrology and primary service as well as urology. The above recommendations and plan were discussed with the patient as well as with multiple family members at bedside. Questions were answered to the best of our ability. He expressed understanding and is in agreement with plan as shanda petty History of Present Illness Attending Physician: Cassius Hall MD History of Present Illness Asked by vascular surgery to assist in placement of temporary HD catheter for acute renal failure and hyperkalemia. History is obtained from discussion with nephrology, vascular surgery, and the patient as well as review the electronic medical record. The patient is a 64-year-old male with a history of COPD who presented to the emergency room with nausea and vomiting. He was found to have norovirus. He was also found to be in acute renal failure. He had some mild hydronephrosis. Plans were to take the patient to the OR for cystoscopy as well as bilateral ureteral stent placement given the mild bilateral hydronephrosis. He was seen by nephrology and felt to require dialysis due to his hyperkalemia. We do not baseline labs available. Initial plan was to have vascular surgery evaluate the patient for tunneled catheter however anesthesia and vascular felt the patient's hyperkalemia needed to be temporized prior to consideration for anesthesia so critical care was consulted for placement of a temporary HD line in the interim. Allergies Allergy/AdvReac Type Severity Reaction Status Date / Time No Known Allergies Allergy Unverified 09/30/24 00:31 Home Medications Medication Instructions Recorded Confirmed Type No Known Home Medications 09/30/24 09/30/24 History Patient History Medical History COPD (chronic obstructive pulmonary disease) Surgical History History of vasectomy Family History Other Prostate cancer Social History Smoking Status: Former smoker Second Hand Exposure: Yes; Do You Dip or Chew Tobacco: No; Tobacco Cessation Education Requested by Patient: No Hx Alcohol Use: No Hx Substance Use: Yes Last Used Substance: Days (ago) Preferred Language: Hebrew Ball Point Splitter Required: No Beliefs That Will Affect Care: None Current Living Situation: Spouse Other Information That Helps Us Care for You: No Feels Safe at Home: Yes Safety Concerns: Feels Safe At This Time Assistive Devices: Glasses Assistive Devices Comment: reading glasses Review of Systems Review of Systems: Please refer to admission H&P. No additions or deletions Physical Exam Constitutional: WD/WN, vitals as above no acute distress Eyes: + anicteric sclerae Neck: normal visual inspection Respiratory: normal respiratory effort; no respiratory distress and no cough Auscultation: lungs clear to auscultation bilaterally Cardiovascular: Rate/Rhythm: regular rate and regular rhythm Heart Sounds: normal S1 and normal S2 Extremities: no edema Gastrointestinal (Abdomen): Inspection/Auscultation: abdomen normal to inspection and normal bowel sounds Percussion/Palpation: abdomen soft; abdomen nontender Musculoskeletal: Extremities: extremities normal to inspection Neurologic: no focal motor deficits Psychiatric: Orientation: alert and oriented x 3 Affect: euthymic affect Results & Data Results & Data Vital Signs (Past 12 Hours) Vital Signs Temp Pulse Pulse Resp BP Pulse Ox O2 Del Method 09/30/24 14:14 72 09/30/24 12:28 36.5 C 83 18 168/79 H 96 Room Air 09/30/24 07:58 36.6 C 71 18 145/81 H 93 Room Air 09/30/24 07:15 84 09/30/24 02:59 Room Air 09/30/24 02:48 36.5 C 76 18 163/83 H 98 Room Air 09/30/24 02:40 74 Critical Care Results & Data Vital Signs (Past 12 Hours) Vital Signs Temp Pulse Pulse Resp BP Pulse Ox O2 Del Method 09/30/24 14:14 72 09/30/24 12:28 36.5 C 83 18 168/79 H 96 Room Air 09/30/24 07:58 36.6 C 71 18 145/81 H 93 Room Air 09/30/24 07:15 84 09/30/24 02:59 Room Air 09/30/24 02:48 36.5 C 76 18 163/83 H 98 Room Air 09/30/24 02:40 74 Lab & Micro Results (Past 24 Hours) RBC 3.82 M/uL (4.70-6.10) L 09/30/24 WBC 9.89 K/ul (4.8-10.8) 09/30/24 Hgb 12.5 g/dl (14.0-18.0) L 09/30/24 Hct 36.6 % (42.0-52.0) L 09/30/24 MCV 95.8 fL (80.0-100.0) 09/30/24 MCH 32.7 pg (25.0-34.0) 09/30/24 MCHC 34.2 g/dL (32.0-36.0) 09/30/24 RDW Standard Deviation 49.9 fL (36.4-46.3) H 09/30/24 RDW Coefficient of Variation 14.0 % (11.5-14.5) 09/30/24 Plt Count 223 K/uL (130-400) 09/30/24 MPV 10.2 fL (9.4-12.4) 09/30/24 Neutrophils (%) (Auto) 84.2 % 09/30/24 Lymphocytes (%) (Auto) 8.5 % 09/30/24 Monocytes # (Auto) 0.62 K/uL (0.11-0.59) H 09/30/24 Eosinophils # (Auto) 0.05 K/uL (0.00-0.50) 09/30/24 Immature Granulocyte % (Auto) 0.3 % 09/30/24 Neutrophils # (Auto) 8.33 K/uL (1.40-6.50) H 09/30/24 Lymphocytes # (Auto) 0.84 K/uL (1.20-3.40) L 09/30/24 Monocytes # (Auto) 0.62 K/uL (0.11-0.59) H 09/30/24 Eosinophils # (Auto) 0.05 K/uL (0.00-0.50) 09/30/24 Basophils # (Auto) 0.02 K/uL (0.00-0.20) 09/30/24 Immature Granulocyte # (Auto) 0.03 K/uL (0.01-0.20) 4 Na 140 mmol/L (136-145) 09/30/24 K 6.4 mmol/L (3.5-5.1) H* 09/30/24 Cl 105 mmol/L (98-107) 09/30/24 CO2 18 mmol/L (21-32) L 09/30/24 Anion Gap 17 (3-11) H 09/30/24 BUN 103 mg/dl (6-23) H 09/30/24 Creatinine 13.02 mg/dl (0.6-1.4) H* 09/30/24 BUN/Creatinine Ratio 7.9 (10-20) L 09/30/24 Glu 84 mg/dl (70-99(Fasting)) 09/30/24 Ca 8.5 mg/dl (8.6-10.3) L 09/30/24 Total Bilirubin 0.5 mg/dl (0.2-1.0) 09/29/24 Direct Bilirubin 0.0 mg/dl (0-0.2) 09/29/24 AST 8 U/L (13-39) L 09/29/24 ALT 8 U/L (7-52) 09/29/24 Alkaline Phosphatase 72 U/L (34-104) 09/29/24 TP 7.7 gm/dl (6.0-8.3) 09/29/24 Albumin 4.2 gm/dl (3.4-5.0) 09/29/24 Calcium Level 8.5 mg/dl (8.6-10.3) L 09/30/24 08:12 Prothromb Time International Ratio 1.0 (0.9-1.1) 09/29/24 20:4 8 Diagnostic Findings (Past 24 Hours) Abdomen/Pelvis CT 09/29/24 21:42 Exam(s): CT ABDOMEN + PELVIS Without Contrast EXAM: CT Abdomen and Pelvis Without Intravenous Contrast CLINICAL HISTORY: Reason for exam: Acute renal insufficiency.. TECHNIQUE: Axial computed tomography images of the abdomen and pelvis without intravenous contrast. CTDI is 19.56 mGy and DLP is 932.59 mGy-cm. Automated exposure control was utilized for the study. A dose lowering technique was utilized adhering to the principles of ALARA. COMPARISON: No relevant prior studies available. FINDINGS: Lung bases: Unremarkable. No mass. No consolidation. ABDOMEN: Liver: Unremarkable. Gallbladder and bile ducts: Unremarkable. No calcified stones. No ductal dilation. Pancreas: Unremarkable. No ductal dilation. Spleen: Unremarkable. No splenomegaly. Adrenals: Unremarkable. No mass. Kidneys and ureters: There is mild bilateral hydroureter and hydronephrosis. No ureterolithiasis is seen. Consider bladder outlet obstruction. 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 Stomach and bowel: There is diverticulosis of the lower left and sigmoid colon without evidence of acute diverticulitis. The appendix is normal. No acute inflammatory changes are seen involving the bowel. No obstruction. PELVIS: Appendix: See above. Bladder: There is asymmetrical circumferential thickening of the urinary bladder wall measuring up to 1.4 cm. The urinary bladder is only partially distended. Consider cystitis versus neoplasm. No stones. Reproductive: Unremarkable as visualized. ABDOMEN and PELVIS: Intraperitoneal space: Unremarkable. No free air. No significant fluid collection. Bones/joints: Mild degenerative changes involving the spine. No acute fracture or subluxation is seen. Soft tissues: Unremarkable. Vasculature: The abdominal aorta is mildly calcified but nondilated. Lymph nodes: Unremarkable. No enlarged lymph nodes. IMPRESSION: 1. There is asymmetrical circumferential thickening of the urinary bladder wall measuring up to 1.4 cm. The urinary bladder is only partially distended. Consider cystitis versus neoplasm. 2. There is mild bilateral hydroureter and hydronephrosis. No ureterolithiasis is seen. Consider bladder outlet obstruction. 3. 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 4. There is diverticulosis of the lower left and sigmoid colon without evidence of acute diverticulitis. The appendix is normal. No acute inflammatory changes are seen involving the bowel. Electronically signed by: Clint Botello MD 09/29/24 23:37 PM Chest X-Ray 09/29/24 23:58 EXAM: XR chest 1V portable CLINICAL HISTORY: MICHELE [facility] TECHNIQUE: Radiograph of chest was acquired. COMPARISON: None. FINDINGS: Consolidation is noted in the right peripheral upper zone. Suspicious lucency is noted within it, possible cavitation. Rest of the lung delgado do not reveal any obvious abnormality. Both costophrenic angles are not included in the radiography field of view. Visualized cardiomediastinal silhouette is within normal limits. No acute osseous abnormality. IMPRESSION: 1. Consolidation is noted in the right peripheral upper zone. Suspicious lucency is noted within it, possible cavitation. Rest of the visualized lung delgado do not reveal any obvious abnormality. 2. Both costophrenic angles are not included in the radiography field of view. Suboptimal evaluation due to incomplete radiographic field of view. Electronically signed by Sherif Taylor 09-30-2024 02:[address] 09/30/24 02:58 CT OF THE CHEST WITHOUT IV CONTRAST CLINICAL HISTORY: abnormal CXR COMPARISON STUDY: Chest radiograph September 30, 2024. CT DOSE: 414.39 mGy.cm TECHNIQUE: Axial images of the chest were obtained without IV contrast. Images were reviewed in the axial, sagittal, and coronal planes. IV contrast was not administered for this examination. Automated exposure control was utilized for the study. A dose lowering technique was utilized adhering to the principles of ALARA. FINDINGS: Prominent mediastinal and right hilar lymph nodes are present. Index right paratracheal lymph node on image 23 of 277 measures 1.4 x 1 cm. A superior right hilar node on image 107 measures 1 x 1 cm. Size of the heart is normal. There is no pericardial effusion. Small hiatal hernia. Mild distal esophageal wall thickening is present. There is no pneumothorax. Trace bilateral pleural effusions. Moderate upper lobe predominant emphysema is present. There is no central obstructing mass. Right upper lobe volume loss is noted with multifocal irregular right upper lobe densities. These include a 3.4 x 1.6 cm density on image 70 of 277. No cavitation. Subpleural left apical opacity favors scarring. No suspicious lesions within the bony thorax are present. Visualized portions of the upper abdomen are unremarkable on unenhanced exam. IMPRESSION: 1. Right upper lobe volume loss with multifocal irregular densities which measure up to 3.4 x 1.6 cm. These are indeterminate but favor scarring. The appearance is not typical for pneumonia. Although within the differential, a neoplastic etiology is considered less likely. A follow-up chest CT in 3 months to ensure stability is recommended. 2. Emphysema. 3. Prominent mediastinal and right hilar lymph nodes which can be assessed on follow-up CT to ensure stability. 4. Trace bilateral pleural effusions. ACT 112: Positive. There are findings on this exam that require communication between the performing entity and the patient following Patient Test Result Information Act ([place] Act 112) guidelines. Electronically signed by: Prashant Johnston M.D. 09/30/2024 11:52 AM I & O Totals 24 Hours 09/29/24 09/30/24 10/01/24 06:59 06:59 06:59 Intake Total 1680 / 1680 1292.5 / 1292.5 Output Total 125 / 125 Balance 1555 / 1555 1292.5 / 1292.5 Cumulative 09/29/24 20:30 thru 09/30/24 14:30 Intake Total 2972.5 Output Total 125 Balance 2847.5 RT Ventilator Mngmt (Last Documented) Ventilator Ordered Settings Respiratory Rate 18 09/30/24 12:28 Ventilator - PT Measurements Respiratory Rate 18 Coding Level of Care Code 23816 IN/OBS CONSULT LVL 3,45M Diagnoses MICHELE (acute kidney injury) N17.9 Hyperkalemia E87.5
--- NOTE | 2024-09-30 14:43 | Procedure Note ---
Procedure Note Date of Service September 30, 2024 CENTRAL LINE PROCEDURE NOTE: Procedure: Temporary HD catheter placement Provider: Ankit Joyner MD Indication: Access for dialysis Anesthesia: [5 cc lidocaine 1% Site: Left IJ, per vascular surgery request Consent was signed and placed on the chart prior to procedure. Indication, risks, and benefits were explained at length. A time-out was completed verifying correct patient, procedure, site, positioning, and implants(s) or special equipment if applicable. Patients left neck was cleansed and draped in the typical sterile fashion using Chloraprep. The Internal Jugular Vein and Carotid Artery were identified using ultrasound. The superficial tissue was anesthetized using 5 mL of 1% lidocaine without epinephrine under direct visualization with the ultrasound. After adequate anesthetization was achieved, the Internal Jugular vein was cannulated under direct ultrasound guidance using an introducer needle on a syringe. Good venous blood return was maintained prior to removal of syringe from introducer needle. Using Seldinger Technique, a guide wire was advanced through the introducer needle without resistance. The introducer needle was removed and ultrasound images were obtained of the guide wire within the Internal Jugular Vein. A small incision was made in penetrating fashion at the guide wire insertion site utilizing an 11 blade scalpel. Serial dilators were advanced to the vessel without resistance. The final dilator was exchanged for the previously flushed 20 cm HD catheter which was advanced into the vessel without resistance. The guide wire was removed intact from the catheter without issue. Claves were placed on each catheter tip with confirmation of good blood flow from each lumen. Each port was easily flushed with sterile saline. The catheter was sutured in place. BioPatch was applied to the catheter and a sterile Tegaderm dressing was applied over the catheter with careful attention to sterility. Patient tolerated procedure well. No immediate complications were met. Post procedure x-ray pending [facility] Procedure Codes (Charges) Tubes, Drains, and Vasc Access Procedure 1: Tubes, Drains, and Vasc Access: [id number] Insertion of cannula for hemodialysis Procedure 2: Tubes, Drains, and Vasc Access: [id number] Ultrasound Guidance For Vascular Coding CPT Codes Tubes, Drains, and Vasc Access - Tubes, Drains, and Vasc Access: [id number] Insertion of cannula for hemodialysis ([id number]) Tubes, Drains, and Vasc Access - Tubes, Drains, and Vasc Access: [id number] Ultrasound Guidance For Vascular ([id number]) Additional Codes Date of Service ([facility].SURGERY)
--- NOTE | 2024-09-30 15:00 | XRay Report ---
XR chest 1V portable CLINICAL HISTORY: s/p LEFT IJ HD Cath COMPARISON STUDY: Chest radiograph and chest CT performed earlier today. FINDINGS: There is no pneumothorax following placement of a left internal jugular dialysis catheter. Tip projects over the distal SVC. There is no pleural effusion. Right upper lung airspace opacity wit h volume loss is unchanged. There is no evidence for pulmonary edema. There is underlying emphysema. Cardiomediastinal silhouette is normal. IMPRESSION: 1. No pneumothorax following placement of a left internal jugular dialysis catheter. 2. No change in right apical opacity with volume loss. This favors scarring however should be assesse d on follow-up exams to ensure stability. ACT 112: Negative or not required by law. Electronically signed by: Prashant Johnston M.D. 09/30/2024 2:59 PM
[2024-09-30 16:28] LABS: BUN Creatinine Ratio 7.5 (10-20); Calcium 9.1 mg/dl (8.6-10.3); Creatinine Clr Calc Pharmacy 6.4 ml/min; Potassium 4.9 mmol/L (3.5-5.1)
[2024-09-30 16:29] LABS: Albumin Level 3.7 gm/dl (3.4-5.0); BUN Creatinine Ratio 7.8 (10-20); Calcium 9.1 mg/dl (8.6-10.3); Creatinine Clr Calc Pharmacy 6.5 ml/min; Phosphorus 7.6 mg/dl (2.5-4.9); Potassium 4.9 mmol/L (3.5-5.1)
[2024-09-30] MEDS: ALBUTEROL 0.5% NEB SOLN 2.5 MG/0.5 ML VIAL NEB STA (16:33)
[2024-09-30 16:59] LABS: Hep B Surface Ag with confirm Negative (Negative)
[2024-09-30 17:08] LABS: Hepatitis B Surface Ab Quant < 3.00 mIU/mL (>or=10mIU/mL Immune); Hepatitis B Surface Antibody Non-Immune
[2024-09-30] MEDS: ACETAMINOPHEN 325 MG TAB PO PRN (18:06)
[2024-09-30] MEDS: HYDROmorphone INJ 0.5 MG/0.5 ML SYR IV PRN (20:18)
[2024-10-01] MEDS: hydrALAZINE HCL 20 MG/ML VIAL IV ONE (02:32)
[2024-10-01 03:22] LABS: Basophils # (auto) 0.03 K/uL (0.00-0.20); Basophils % (auto) 0.3 %; Eosinophils # (auto) 0.01 K/uL (0.00-0.50); Eosinophils % (auto) 0.1 %; Hematocrit (blood only) 36.2 % (42.0-52.0); Hemoglobin 12.8 g/dl (14.0-18.0); Immature Granulocytes # (auto) 0.04 K/uL (0.01-0.20); Immature Granulocytes % (auto) 0.4 %; Lymphocytes # (auto) 0.71 K/uL (1.20-3.40); Lymphocytes % (auto) 6.3 %; Mean Corpuscular Hemoglobin 33.8 pg (25.0-34.0); Mean Corpuscular Hgb Conc 35.4 g/dL (32.0-36.0); Mean Corpuscular Volume 95.5 fL (80.0-100.0); Mean Platelet Volume 10.2 fL (9.4-12.4); Monocytes # (auto) 0.63 K/uL (0.11-0.59); Monocytes % (auto) 5.6 %; Neutrophils # (auto) 9.85 K/uL (1.40-6.50); Neutrophils % (auto) 87.3 %; Platelet Count 215 K/uL (130-400); RDW Coefficient of Variation 13.8 % (11.5-14.5); RDW Standard Deviation 49.1 fL (36.4-46.3); Red Blood Count 3.79 M/uL (4.70-6.10); White Blood Count 11.27 K/ul (4.8-10.8)
[2024-10-01 03:38] LABS: Albumin Level 3.9 gm/dl (3.4-5.0); BUN Creatinine Ratio 6.5 (10-20); Bilirubin Direct 0.1 mg/dl (0-0.2); Bilirubin,Total 0.5 mg/dl (0.2-1.0); Creatinine Clr Calc Pharmacy 7.3 ml/min; Phosphorus 8.4 mg/dl (2.5-4.9); Potassium 4.9 mmol/L (3.5-5.1); Total Protein 7.1 gm/dl (6.0-8.3)
[2024-10-01] MEDS: SIMETHICONE 40 MG/0.6 ML 30ML PO ONE (04:00)
[2024-10-01] MEDS: HYDROmorphone INJ 0.5 MG/0.5 ML SYR IV PRN (05:07)
--- NOTE | 2024-10-01 12:54 | Hospitalist Progress Note ---
Date of Service October 01, 2024 Assessment & Plan (1) MICHELE (acute kidney injury): Plan: Noted with QCH=536, Cr=12.42. Unknown baseline. Patient denies pre-existing renal disease to his knowledge but he has been absent from medical care for many years. Likely multifactorial. Suspect pre-renal etiology contributing - patient with n/v/d and poor oral intake. Possible obstructive uropathy contributing as well. CT with concern for possible bladder outlet obstruction -Maintain Cramer catheter -Monitor I/Os -Continue IVF - Plasmalyte at 125mL/hr x 2L -BMP q 12 hours to monitor renal function, electrolytes and metabolic profile -Check CK -Check urine Na and Cr to calculate FeNa -Check urine culture -Nephrology consultation appreciated re: MICHELE -HD as per nephrology -Urology consultation appreciated -plan for cystoscopy and bilateral ureteral stent placement on 10/02. (2) Abnormal finding on chest xray: Plan: Possible cavitary lesion in RUL. Patient denies fever, chills, cough or worsening SOB. -CT chest showing Right upper lobe volume loss with multifocal irregular densities which measure up to 3.4 x 1.6 cm. These are indeterminate but favor scarring. The appearance is not typical for pneumonia. Although within the differential, a neoplastic etiology is considered less likely. A follow-up chest CT in 3 months to ensure stability is recommended. (3) COPD (chronic obstructive pulmonary disease): Plan: Patient denies cough, worsening SOB or wheeze -Continue to monitor Plan Routine screening -Will order HgbA1C, Lipid panel and PSA -Patient will need to establish with a PCP for routine followup Admission and Anticipated Discharge Date Admission Date: September 30, 2024 Subjective No events overnight, pt resting comfortably in bed, with family present in room. Review of Systems Review of Systems: CONST: Negative for fever, body aches and chills. HENT: Negative for neck pain/stiffness, headache, congestion, sore throat, swelling. EYES: Negative for discharge/pain or vision changes. RESP: Negative for cough/hemoptysis and shortness of breath. CV: Negative chest pain, difficulty breathing, palpitations. ABD: Negative pain, nausea, vomiting. : Negative increase frequency, dysuria, blood in urine or stool. MUSC: Negative for muscle aches, edema. SKIN: Negative rash, lesions/sores. NEURO: Negative headache, dizziness, weakness. Physical Exam Physical Exam: GENERAL APPEARANCE NAD, activity normal for age, well developed/ well nourished, no cyanosis, pallor, or diaphoresis. EYES lids/conjunctiva normal. EARS/NOSE/THROAT Mucous membranes moist, nares normal, lips/teeth normal uvula midline without oral pharyngeal erythema, exudate or swelling TMs normal bilaterally. No lymphangitis/lymphedema. HEAD/NECK normocephalic atraumatic, no facial trauma, neck is supple. RESPIRATORY respiratory effort normal, speaks in full sentences, no tripod position, no accessory muscle use. Lungs clear to auscultation without rhonchi, wheezes, rales CARDIAC Regular rate and rhythm, no edema. ABDOMINAL Soft, ND/NT. No evidence of fluid wave. No pulsatile masses on exam, rebound tenderness, South sign or pain over Mcburney's point. MUSCLES/EXTREMITIES No abnormal range of motion, no swelling. SKIN Warm, pink and dry. No rashes, dermatoses, petechiae or lesions. NEUROLOGICAL Speech is clear and appropriate. Normal level of consciousness. Gait and coordination are normal. 5/5 strength in all extremities. PSYCH Normal mood and affect. Judgement/competence is appropriate Results & Data Results & Data Vital Signs (Past 12 Hours) Vital Signs Temp Pulse Pulse Pulse Resp BP BP 10/01/24 12:14 36.6 C 93 H 20 151/85 H 10/01/24 11:52 36.5 C 84 10/01/24 11:30 96 H 140/86 10/01/24 11:00 79 149/93 H 10/01/24 10:30 101 H 145/95 H 10/01/24 10:00 86 171/102 H 10/01/24 09:30 77 168/97 H 10/01/24 09:00 80 167/93 H 10/01/24 08:44 36.5 C 83 10/01/24 07:50 36.5 C 83 18 10/01/24 02:56 36.8 C 82 18 BP Pulse Ox O2 Del Method 10/01/24 12:14 94 Room Air 10/01/24 11:52 162/89 H 10/01/24 11:30 10/01/24 11:00 10/01/24 10:30 10/01/24 10:00 10/01/24 09:30 10/01/24 09:00 10/01/24 08:44 10/01/24 07:50 181/90 H 93 Room Air 10/01/24 02:56 174/88 H 94 Room Air PG Care Time/CCT Total # of Minutes Spent Total Time Spent with Patient: Total time spent is greater than 50% in coordination of care (as documented) at patient's floor/unit and/or counseling patient: Coding Level of Care Code 07669 SUB INP/OBS CARE 2/35MIN Diagnoses MICHELE (acute kidney injury) N17.9 Abnormal finding on chest xray R93.89 COPD (chronic obstructive pulmonary disease) J44.9
--- NOTE | 2024-10-01 13:22 | Urology Progress Note ---
Date of Service October 01, 2024 Assessment & Plan (1) Bilateral hydronephrosis: (2) MICHELE (acute kidney injury): Plan: 64-year-old male admitted for acute renal failure and hyperkalemia. Patient afebrile, hypertensive Labs reviewedcreatinine 11.95, WBC 11.27, hemoglobin 12.8, K 4.9 Patient was scheduled for cystoscopy and bilateral ureteral stent placement yesterday, but was canceled due to need for emergent dialysis He underwent HD yesterday and today He is currently n.p.o. for urologic intervention He would like to proceed with bilateral ureteral stent placement today Proceed to the OR for cystoscopy and bilateral ureteral stent placement Risk and benefits of procedure to be reviewed with patient by Dr. Gale Keep n.p.o. for procedure Cramer was removed overnight, continue to monitor for now Continue supportive care and medical management per hospital medicine service Will cover with preoperative antibiotic Gu will follow Attending note: Worsening clinical condition requiring emergent dialysis and management secondary to hyperkalemia and significant MICHELE. Possible obstructive issues possible infectious versus inflammatory versus other potential causes. Patient independently assessed, examined, interviewed, and evaluated. Agree with note as above. Patient's vitals and labs were all reviewed. Pertinent values in the HPI and plan section. Imaging was reviewed interpreted by myself. Agree with read. Vitals were reviewed. Discussed findings extensively with patient and family. Reviewed with nurse practitioner as well as consulting physicians/team. Patient's complicated medical and surgical history was reviewed and summarized above. Patient's surgical, medical, social, and family history were all reviewed with pertinent values as above. Discussed patient's current diagnosis as well as concerns and issues. Reviewed different options moving forward. Discussed potential risks and benefits as well as possible options and concerns. Reviewed potential surgical options and interventions. Discussed potential issues and concerns related to intervention. Risk and benefits were discussed extensively with patient and any available family. Discussed potential risks related to anesthesia. Discussed risks of bleeding infection and injury. Risks and benefits discussed at length for procedure. These include bleeding, infection, injury to surrounding tissues or organs, and risks associated with anesthesia. Patient states understanding and agrees to proceed. Will sign consent and schedule. Plan for cystoscopy with possible bilateral stent placement. Admission and Anticipated Discharge Date Admission Date: September 30, 2024 Subjective Patient seen and examined at bedside this afternoon. Family present. He was scheduled to undergo bilateral ureteral stent placement yesterday, but was canceled due to need for emergent dialysis. Underwent hemodialysis again today, recently returned to room. He is NPO. Cramer catheter was removed overnight due to discomfort and concerns for clots. Continues to have some lower abdominal/pelvic discomfort. He reports he is voiding some into his brief. Denies fever or chills. Occasional nausea, no vomiting. Review of Systems Constitutional: as per Subjective / HPI Genitourinary: + as per Subjective / HPI Physical Exam Constitutional: no acute distress Respiratory: normal respiratory effort; no respiratory distress and no labored breathing Gastrointestinal (Abdomen): Inspection/Auscultation: abdomen normal to inspection Musculoskeletal: Head/Neck/Chest: normocephalic Neurologic: moves all extremities and awake Psychiatric: Orientation: alert and oriented x 3 Results & Data Vital Signs (Past 12 Hours) Vital Signs Temp Pulse Pulse Pulse Resp BP BP 10/01/24 12:14 36.6 C 93 H 20 151/85 H 10/01/24 11:52 36.5 C 84 10/01/24 11:30 96 H 140/86 10/01/24 11:00 79 149/93 H 10/01/24 10:30 101 H 145/95 H 10/01/24 10:00 86 171/102 H 10/01/24 09:30 77 168/97 H 10/01/24 09:00 80 167/93 H 10/01/24 08:44 36.5 C 83 10/01/24 08:00 89 10/01/24 07:50 36.5 C 83 18 10/01/24 02:56 36.8 C 82 18 BP Pulse Ox O2 Del Method 10/01/24 12:14 94 Room Air 10/01/24 11:52 162/89 H 10/01/24 11:30 10/01/24 11:00 10/01/24 10:30 10/01/24 10:00 10/01/24 09:30 10/01/24 09:00 10/01/24 08:44 10/01/24 08:00 10/01/24 07:50 181/90 H 93 Room Air 10/01/24 02:56 174/88 H 94 Room Air PG Care Time/CCT Total # of Minutes Spent Total Time Spent with Patient: Total time spent is greater than 50% in coordination of care (as documented) at patient's floor/unit and/or counseling patient: Coding Level of Care Code 36939 SUB INP/OBS CARE 2MIN Diagnoses Bilateral hydronephrosis N13.30 MICHELE (acute kidney injury) N17.9
--- NOTE | 2024-10-01 14:43 | Nephrology Progress Note ---
Date of Service October 01, 2024 Assessment & Plan (1) MICHELE (acute kidney injury): (2) Hyperkalemia: (3) Bilateral hydronephrosis: (4) Metabolic acidosis: Plan 64 y o male with no known past medical history as he has not been to a physician for many years, admitted going nausea, vomiting, diarrhea, decreased urine output for 3 days and ongoing lower urinary tract symptoms for a while, noted to have MICHELE, hyperkalemia, metabolic acidosis, low urine output. Urinalysis with proteinuria and microscopic hematuria and CT abdomen pelvis concerning for bilateral mild hydronephrosis without obstructing urolithiasis but noted to have bladder outlet obstruction. Significant abnormality in kidney function could be end-stage renal disease versus MICHELE as no prior record available to decide one way or the other. Lab this morning showed improvement in electrolyte after dialysis yesterday. Remain oliguric. --Getting second dialysis treatment now, plan to do 3 hours dialysis and 2 L UF. Plan for bilateral ureteral stent this afternoon. Will monitor kidney function and urine output after ureteral stent. If there is improvement in urine output, volume status, kidney function and electrolyte stable, will continue to monitor kidney function for any renal recovery however high likelihood that this is chronic and may need to continue on dialysis. Tentatively plan for tunneled dialysis catheter Sunday unless we see significant improvement in kidney function. -- Dose medications for EGFR less than 10 -- Left arm nephrology precaution for future vascular access. Admission and Anticipated Discharge Date Admission Date: September 30, 2024 Elizabeth Junior evaluated during dialysis this morning. Blood pressure is running high and he has been tolerating ultrafiltration. Overall reports feeling well. Denies any pain at rest dialysis catheter site. Electrolyte improved after dialysis yesterday. Review of Systems Review of Systems: ROS was otherwise unremarkable Physical Exam Constitutional: WD/WN, vitals as above + ill appearing; no acute distress Eyes: + anicteric sclerae Respiratory: no respiratory distress Auscultation: lungs clear to auscultation bilaterally Cardiovascular: RRR, no murmur, no edema Musculoskeletal: Extremities: extremities normal to inspection Skin: no rashes, warm and dry Neurologic: no focal motor deficits Psychiatric: Orientation: alert and oriented x 3 Affect: euthymic affect Genitourinary: Cramer catheter in place. Results & Data Vital Signs (Past 12 Hours) Vital Signs Temp Pulse Pulse Pulse Resp BP BP 10/01/24 14:06 81 10/01/24 12:14 36.6 C 93 H 20 151/85 H 10/01/24 11:52 36.5 C 84 10/01/24 11:30 96 H 140/86 10/01/24 11:00 79 149/93 H 10/01/24 10:30 101 H 145/95 H 10/01/24 10:00 86 171/102 H 10/01/24 09:30 77 168/97 H 10/01/24 09:00 80 167/93 H 10/01/24 08:44 36.5 C 83 10/01/24 08:00 89 10/01/24 07:50 36.5 C 83 18 10/01/24 02:56 36.8 C 82 18 BP Pulse Ox O2 Del Method 10/01/24 14:06 10/01/24 12:14 94 Room Air 10/01/24 11:52 162/89 H 10/01/24 11:30 10/01/24 11:00 10/01/24 10:30 10/01/24 10:00 10/01/24 09:30 10/01/24 09:00 10/01/24 08:44 10/01/24 08:00 10/01/24 07:50 181/90 H 93 Room Air 10/01/24 02:56 174/88 H 94 Room Air PG Care Time/CCT Total # of Minutes Spent Total Time Spent with Patient: Total time spent is greater than 50% in coordination of care (as documented) at patient's floor/unit and/or counseling patient: Coding Level of Care Code 76994 SUB INP/OBS CARE 3/50MIN Diagnoses MICHELE (acute kidney injury) N17.9 Hyperkalemia E87.5 Bilateral hydronephrosis N13.30 Metabolic acidosis E87.20
[2024-10-01] MEDS ORDERED: fentaNYL citrate PF 100 MCG/2 ML VIAL ONE (17:24)
[2024-10-01] MEDS ORDERED: MIDAZOLAM HCL 1 MG/ML 2ML VIAL ONE (17:24)
[2024-10-01] MEDS ORDERED: LIDOCAINE 2% 2 ML VIAL/AMP(20MG/ML) INFIL ONE (17:27)
[2024-10-01] MEDS ORDERED: PROPOFOL IV EMULSION 10 MG/ML 20 ML VIAL IV ONE ×2 (17:27→18:06)
[2024-10-01] MEDS: ceFAZolin 2000MG 2,000 MG/15 ML SYR IV ONE (17:46)
[2024-10-01] MEDS ORDERED: ePHEDrine sulfate 50 MG/ML AMP IV PRN (17:54)
[2024-10-01] MEDS ORDERED: PROMETHAZINE HCL 6.25 MG in SODIUM CHLORIDE 0.9% 50 ML IV PRN (17:54)
[2024-10-01] MEDS ORDERED: ATROPINE SULFATE 0.1 MG/ML 10ML SYR IV PRN (17:54)
[2024-10-01] MEDS ORDERED: fentaNYL citrate PF 100 MCG/2 ML VIAL IV PRN (17:54)
[2024-10-01] MEDS ORDERED: HYDROmorphone INJ 2 MG/ML SYR/VIAL IV PRN (17:54)
[2024-10-01] MEDS ORDERED: ONDANSETRON INJ 2 MG/ML 2 ML VIAL IV PRN (17:54)
[2024-10-01] MEDS ORDERED: KETAMINE HCL 10MG/ML SYR ONE (17:57)
[2024-10-01] MEDS ORDERED: diphenhydrAMINE 50 MG/ML VIAL ONE (18:07)
[2024-10-01] MEDS ORDERED: ALBUTEROL HFA 8 GM INHALER INH ONE (18:27)
[2024-10-01] MEDS ORDERED: ROCURONIUM BROMIDE 10 MG/ML 5 ML VIAL IV ONE (18:34)
[2024-10-01] MEDS: DIATRIZOATE MEGLUMINE 30% 100ML VIAL INSTIL ONE (18:47)
[2024-10-01 18:51] LABS: BUN Creatinine Ratio 4.8 (10-20); Potassium 4.5 mmol/L (3.5-5.1)
--- NOTE | 2024-10-01 19:10 | Operative Report ---
PG Post Operative Report Pre & Post Diagnosis Acute renal failure, bilateral obstruction. Gross hematuria Same Operation Date: 10/03/24 10:00 <No data on this case meets the specified criteria> I identified the patient and participated in the time-out.: Yes Procedure Cystoscopy with clot evacuation, fulguration of bleeding ulcers, fulguration of bleeding prostatic varicosities, bilateral retrograde pyelogram. Bilateral ureteral dilation, and bilateral stent placement Difficult catheter placement. Operation Date: 10/03/24 10:00 <No data on this case meets the specified criteria> Surgeon Gwyn Gale, II, DO Plant Specialist None Estimated Blood Loss 10 Findings Consistent with Post-Op Diagnosis Severe inflammation throughout the bladder with multiple areas of bleeding ulceration and fissures with severe contracted appearance and significantly d ecreased bladder capacity. Severe distention of the bladder secondary to clot within the bladder. Multiple bleeding ulcerations throughout the bladder with 8 different areas fulgurated in the bladder. Significantly bleeding large prostatic varicosity at bladder neck Severe distention of ureters bilaterally with severe stricture bilaterally. External compression versus stricture of the distal ureter on the right. External compression for stricture of the mid and distal ureter on the left. Severe dilation of the collecting systems bilaterally with significant displacement of the kidneys bilaterally Specimens None Drains 24 Sammarinese three-way catheter. 7 Sammarinese by 26 double-J ureteral stent on the right 7 Sammarinese by 24 double-J ureteral stent on the left Anesthesia Type General Complications none Disposition Disposition: Recovery Room Indications Patient with severe bilateral renal obstruction with renal failure and significant hematuria/gross hematuria with obstruction. Risks and benefits discussed at length. Description of Procedure Patient was consented and brought back to the operating room. Patient was placed under anesthesia in the supine position and moved to the dorsal lithotomy position. Patient was prepped and draped in the regular sterile fashion. A time out was completed. The procedure began as a monitored anesthetic care case however had to convert to general when the patient did have some issues with desaturation. A 30degree Cystoscope was placed into the bladder and the entire bladder was examined. Immediately upon entering the bladder a severe amount of clot was appreciated. The prostate and bladder neck appeared to be severely inflamed there was active bleeding occurring at the bladder neck and within the base of the bladder. Visualization was severely limited secondary to this. Extensive clot evacuation was completed. A large amount of clot material was able to be removed. Over 300 cc of clot was found within the bladder. After extensive clot evacuation the scope was replaced. The entire bladder was inspected. Active bleeding was noted to be coming from a very large prostatic varicosity at the bladder neck. There were also multiple areas of fissure and ulceration that were bleeding along the posterior wall base and sidewall of the bladder. The UO's were identified as well as the bladder neck, trigone, dome, and the other important landmarks. The bladder wall appeared to be severely inflamed the bladder capacity was significantly limited. Severe inflammation and irritation was noted throughout the bladder. The prostatic urethra and large lobes/adenoma was assessed and t multiple areas of bleeding were discovered with a significant amount of bleeding noted at the bladder neck at approximately the 12 o'clock position coming from a large prostatic varicosity. The resection scope was placed and the fine bipolar loop was selected. Using the fine bipolar loop the large prostatic varicosity was able to be ablated/fulgurated. The bleeding was controlled which drastically improved visualization. There was still some areas of active oozing and bleeding with 8 ulcerated areas on the posterior wall base and lateral holliday that found to have a moderate slow bleed. The loop was also used to fulgurate these bleeding lesions. The coagulation setting was utilized and the bleeding was able to be controlled. This drastically improved visualization. The bladder was then further inspected. The trigone was better able to be visualized. The UOs on each side were able to be fully identified A 5 Sammarinese open-ended catheter was able to be entered into the ureter bilaterally. Starting on the right contrast was placed into the ureter. The ureter was found to be severely dilated with a severe area of narrowing along the distal ureter. It appeared to be possibly stricture versus external compression. The 5 Sammarinese catheter was able to be advanced. Utilizing a wire. The ureter was dilated and the catheter was better able to advance. A wire was then placed all the way up to the renal pelvis. The kidney was found to be significantly displaced and severely dilated with the ureter massively dilated and severe hydronephrosis with significant blunting of the calyceal's noted. The wire was able to be advanced into the upper pole portion of the kidney. With significant manipulation the ureter was able to be somewhat straightened and the 5 Sammarinese open-ended catheter was removed. A 7 Sammarinese double-J ureteral stent was then placed under direct visualization. The stent was discoid. It was found to be in good position in the renal pelvis. Attention was then taken to the left side. The 5 Sammarinese open-ended catheter was once again utilized. The catheter was able to advance there was multiple areas of what appeared to be possibly external compression versus stricture in the distal and mid ureter on the left. The ureter proximal to this was found to be severely distended once again and the renal pelvis was found to be severely distended with significant blunting of the calyces on the left side as well. Positioning of the kidneys also was found to be irregular. The wire was able to be placed up into the upper pole calyx. A 7 Sammarinese by 24 double-J ureteral stent was then placed over the wire after removing the 5 Sammarinese open-ended catheter. He was placed under direct visualization confirmed with fluoroscopy. Once again manipulation was needed in order to allow the stent to be placed. With both stents in position the bladder was then irrigated once again. The position of the stent was confirmed. Additional clots were irrigated clear from the bladder. No major areas of b leeding were noted. There was some mild oozing coming from the bladder lining as multiple areas were found to be severely inflamed raised and irritated. Once cleared the bladder neck and prostate were inspected the area of significant bleeding from the varicosity had drastically improved after the cauterization. No major other bleeding was noted. The prostate was found to be severely inflamed and swollen. A wire was placed into the bladder. The scope was then removed. A 24 Sammarinese three-way catheter was placed over the wire into the bladder and confirmed to be in good position. The bladder was then fully drained. The balloon was elevated. Continuous bladder irrigation was initiated. This was easily irrigated. The patient was cleaned, aroused from anesthesia, and transferred to the intensive care unit in stable condition having tolerated the procedure well with no complications. Patient did experience desaturation during the procedure and anesthesia elected to maintain the intubation with plans to monitor the patient in the intensive care unit for postoperative monitoring. I was present and participated in all aspects of the procedure. The patient will be monitored in the in the intensive care unit under general endotracheal intubation. Will plan to continue to monitor the patient closely Plan to continue CBI. Will maintain stents and allow bilateral drainage with Cramer catheter drainage. I attest to the content of the Intraoperative Record and any orders documented therein. Any exceptions are noted below.
[2024-10-01] MEDS: propofoL 1,000 MG/100 ML VIAL IV SCH (19:22)
[2024-10-01] MEDS ORDERED: STAT IV/IM STA (19:33)
[2024-10-01] MEDS ORDERED: STAT IV Infusion **Titration per Protocol STA ×3 (19:33→20:31)
[2024-10-01] MEDS ORDERED: PROPOFOL BOLUS FROM BAG IV PRN (19:33)
--- NOTE | 2024-10-01 19:47 | Anesthesiology Progress Note ---
Date of Service October 01, 2024 Anesthesia Post Procedure Vital Signs Vital Signs: Temp Pulse Pulse Pulse Pulse Resp BP 10/01/24 19:32 36.3 C L 106 H 18 10/01/24 19:22 36.3 C L 117 H 18 10/01/24 17:10 36.7 C 82 22 10/01/24 15:46 36.6 C 82 18 10/01/24 14:06 81 10/01/24 12:14 36.6 C 93 H 20 10/01/24 11:52 36.5 C 84 10/01/24 11:30 96 H 140/86 10/01/24 11:00 79 149/93 H 10/01/24 10:30 101 H 145/95 H 10/01/24 10:00 86 171/102 H 10/01/24 09:30 77 168/97 H 10/01/24 09:00 80 167/93 H 10/01/24 08:44 36.5 C 83 10/01/24 08:00 89 10/01/24 07:50 36.5 C 83 18 10/01/24 02:56 36.8 C 82 18 09/30/24 22:50 36.8 C 86 18 09/30/24 21:58 80 BP BP Pulse Ox O2 Del Method FiO2 10/01/24 19:32 130/95 86 L Ambu-Bag 100 10/01/24 19:22 131/94 84 L Mechanical Vent 100 10/01/24 17:10 163/102 H 92 Room Air 10/01/24 15:46 175/93 H 92 Room Air 10/01/24 14:06 10/01/24 12:14 151/85 H 94 Room Air 10/01/24 11:52 162/89 H 10/01/24 11:30 10/01/24 11:00 10/01/24 10:30 10/01/24 10:00 10/01/24 09:30 10/01/24 09:00 10/01/24 08:44 10/01/24 08:00 10/01/24 07:50 181/90 H 93 Room Air 10/01/24 02:56 174/88 H 94 Room Air 09/30/24 22:50 180/86 H 93 Room Air 09/30/24 21:58 Pain Intensity Penis: Pain Intensity: 3 Transfer of Care Handoff Completed per policy Notes Mental Status: see notes below Patient Amnestic to Procedure: Yes Nausea / Vomiting: adequately controlled Pain: adequately controlled Airway Patency, RR, SpO2: stable & adequate BP & HR: stable & adequate Hydration State: stable & adequate Anesthetic Complications: see Notes below Notes: Pt had cystoscopy w MAC. Pt had partial upper airway obstruction during case, nasal airway attempted to be placed. Bleeding into airway ensued. Pharynx suctioned and pt was orally intubated. After intubation, pt had diminished SaO2 mid-80s on 100% O2. Decided to ventilate pt post-op until respiratory status improves. Discussed w ICU staff.
--- NOTE | 2024-10-01 19:56 | XRay Report ---
Exam(s): XR CXR 1 VIEW EXAM: XR Chest, 1 View CLINICAL HISTORY: Reason for exam: resp failure. TECHNIQUE: Frontal view of the chest. COMPARISON: 09/30/2024 FINDINGS: Lungs: Worsening consolidation and volume loss in the right upper lobe. Pleural space: No pleural effusion. No pneumothorax. Heart: Unremarkable. No cardiomegaly. Tubes, lines and devices: Endotracheal tube tip terminates 8.6 cm above the dion. Left IJ central line is unchanged. IMPRESSION: 1. Endotracheal tube tip terminates 8.6 cm above the dion. 2. Worsening consolidation and volume loss in the right upper lobe. Electronically signed by: Vamshi Pierce MD 10/01/24 19:55 PM
[2024-10-01] MEDS: CISATRACURIUM BESYLATE 40 MG in DEXTROSE 5% 80 ML IV SCH (19:58)
[2024-10-01] MEDS: CISATRACURIUM BESYLATE IV SOLN 2 MG/ML 10 ML VIAL IV ONE (20:07)
[2024-10-01] MEDS ORDERED: CISATRACURIUM BESYLATE IV SOLN 2 MG/ML 10 ML VIAL IV ONE (20:08)
[2024-10-01 20:10] LABS: Basophils # (auto) 0.04 K/uL (0.00-0.20); Basophils % (auto) 0.3 %; Eosinophils # (auto) 0.02 K/uL (0.00-0.50); Eosinophils % (auto) 0.1 %; Hematocrit (blood only) 41.3 % (42.0-52.0); Hemoglobin 13.8 g/dl (14.0-18.0); Immature Granulocytes # (auto) 0.11 K/uL (0.01-0.20); Immature Granulocytes % (auto) 0.7 %; Lymphocytes # (auto) 0.87 K/uL (1.20-3.40); Lymphocytes % (auto) 5.8 %; Mean Corpuscular Hgb Conc 33.4 g/dL (32.0-36.0); Mean Corpuscular Volume 98.8 fL (80.0-100.0); Mean Platelet Volume 10.3 fL (9.4-12.4); Neutrophils # (auto) 13.14 K/uL (1.40-6.50); Neutrophils % (auto) 87.1 %; Platelet Count 215 K/uL (130-400); RDW Coefficient of Variation 14.3 % (11.5-14.5); RDW Standard Deviation 52.5 fL (36.4-46.3); Red Blood Count 4.18 M/uL (4.70-6.10); White Blood Count 15.08 K/ul (4.8-10.8)
[2024-10-01] MEDS: VECURONIUM BROMIDE 10 MG VIAL IV ONE (20:11)
[2024-10-01] MEDS: VECURONIUM BROMIDE 10 MG VIAL IV STA (20:15)
[2024-10-01 20:30] LABS: Albumin Globulin Ratio 1.2 (0.9-2); Albumin Level 4.3 gm/dl (3.4-5.0); Bilirubin,Total 0.4 mg/dl (0.2-1.0); Calcium 9.1 mg/dl (8.6-10.3); Creatinine Clr Calc Pharmacy 10.3 ml/min; Globulin 3.6 gm/dl (2.5-4.0); Phosphorus 8.6 mg/dl (2.5-4.9); Total Protein 7.9 gm/dl (6.0-8.3)
[2024-10-01] MEDS: fentaNYL citrate PF 100 MCG/2 ML VIAL IV STA ×2 (20:30→21:45)
[2024-10-01] MEDS: PHENYLEPHRINE/NSS 25 MG/250 ML BAG IV SCH (20:30)
[2024-10-01] MEDS: PHENYLEPHRINE HCL 25 MG/250 ML NSS IV ONE (20:32)
--- NOTE | 2024-10-01 20:38 | Procedure Note ---
Procedure Note Date of Service October 01, 2024 Procedure: Fiberoptic bronchoscopy Therapeutic aspiration of secretions Provider: Ankit Joyner MD Consent: Procedure was emergent. Patient intubated and hypoxemic on the ventilator. Unable to provide consent. No family immediately available Indication: Hypoxemic respiratory failure and abnormal chest x-ray in patient returning from the OR Procedure: Patient was brought to the ICU from the OR. He had undergone anesthesia with cystoscopy and placement of stents for bilateral hydro. Known to me from earlier this admission where I placed a dialysis catheter with request of nephrology. On presentation to the ICU the patient was hypoxemic and unable to be oxygenated or ventilated. His chest x-ray was markedly abnormal from preoperatively demonstrating what appeared to be atelectatic changes within the right lung with tracheal deviation. Initially attempted bronchoscopy with a disposable GlideScope. The Bodai adapter was attached to the endotracheal tube and the scope advanced through the adapter into the airway. There were blood clots identified within the endotracheal tube and extensive clots within the trachea and right mainstem bronchus. Initially I was able to retrieve some of the clots however the patient had persistent abnormalities and visualization with the disposable scope was suboptimal. We therefore elected to transition to the therapeutic bronchoscope. The therapeutic scope was prepped and advanced through the endotracheal tube via the Bodai adapter. Cold saline was used to lavage the airways. There was extensive clot formation within the right mainstem bronchus extending down into the right lower lobes occluding the airways. This was extensively lavaged and I was eventually able to clear the airways delivering multiple long fibrinous clots. This required removal and readvancement of the scope on multiple occasions. Once the airways were cleared, and inspection was conducted. There was some mild bloody secretions present in the bilateral lower lobes which again were lavaged free. There was no evidence of airway bleeding. The tube was sounded and advanced 4 cm under endoscopic visualization. At the conclusion of the procedure it was resecured and found to be about 3 to 4 cm above the dion. The bronchoscope was then removed from the airways. Patient tolerated the procedure well At the conclusion of the procedure, I was able to decrease the patient's oxygen requirement down to about 60% with him maintaining oxygen saturations at or above 100% Impression: 1. Endotracheal tube approximately 8 cm above the dion advanced 4 cm 2. Extensive airway clot formation occluding most of the right mainstem bronchus status post therapeutic aspiration. [facility] [place] Procedure Codes (Charges) Pulmonary/Thoracic Procedure 1: Pulmonary and Thoracic: 00163 Bronchoscopy, clear airways Coding CPT Codes Pulmonary/Thoracic - Pulmonary and Thoracic: 38904 Bronchoscopy, clear airways ([id number]) Additional Codes Date of Service ([facility].SURGERY)
--- NOTE | 2024-10-01 20:53 | Critical Care Progress Note ---
Date of Service October 01, 2024 Assessment & Plan (1) Acute hypoxemic respiratory failure: Plan: Reason Critically Ill: 64-year-old male with acute renal failure and bilateral hydronephrosis presents to the ICU post operatively for bilateral ureteral stent placement and currently undergoing continuous bladder irrigation therapy. Operative case complicated by upper airway bleeding and aspiration of blood clot with occlusion of the right mainstem which caused significant hypoxia requiring mechanical ventilation, and Emergently bronched postop. Neuro - Sedation: Propofol Paralytic: Nimbex Cardiac - Hypotensionsuspect this is sedation related, and patient does appear to be intravascularly dry on exam. Will continue with fluid resuscitation and vasopressor support as needed to maintain MAP greater than 65. Respiratory - Acute hypoxemic respiratory failurelikely due to aspiration of blood as patient underwent emergent bronchoscope postoperatively, where he was found to have large amounts of blood clot obstructing the right mainstem and airways, which were successfully removed. See bronchoscope note for details. -History of COPD. Will start on scheduled DuoNeb -Patient now has improvement of oxygenation, continues to be mechanically v entilated. Weaning vent settings as tolerated. - Currently paralyzed with Nimbex. Can likely discontinue once patient's oxygenation improves within reason - Follow-up morning chest x-ray and ABG. - Continuous pulse ox and end-tidal CO2 monitoring. GI - N.p.o. for now IV famotidine RENAL/LYTES - Acute renal failurelikely postobstructive with bilateral hydronephrosis. Patient underwent dialysis earlier this afternoon. No significant electrolyte abnormalities or acid-base imbalance at this time. Hyperkalemia resolved. Continue to monitor with routine lab work. Coordination of of hemodialysis per nephrology. - Bilateral hydronephrosis/hematuriapatient now status post bilateral ureteral stent placement and currently undergoing continuous bladder irrigation. Per report, patient noted to have inflamed bladder with ulcers noted within the bladder wall likely source of bleeding. Unsure of cause of hydronephrosis at this time. - Coags pending. Trend H&H - Management per urology. ENDO - No history of diabetes or thyroid disease. ICU hyperglycemic protocol HEME - H&H stable. Patient noted to have hematuria and upper airway bleeding Intraoperatively - Coags currently pending - No indication for RBCs at this time. Continue to trend H&H. Will transfuse as indicated ID - No indication for infectious process at this time. Trend fever curve. LINES/IV ACCESS - Right femoral CVC, peripheral IVs DVT PROPHYLAXIS - SCDs, hold anticoagulation in the setting of hematuria I have personally spent 85 minutes of critical care time in the direct management of this patient. This is a life/limb threatening event. This includes time spent evaluating patient, direct bedside care, chart review, placing orders, interpretation of diagnostic studies, discussion with consultants, patient, and family members, as well as other required patient management activities. This time is exclusive of all separately billable procedures, and teaching time and separate from and in addition to any other critical care service time. Thank you for allowing us to participate in the care of this patient. Please refer to my attending physician's documentation for any further recommendations. (2) Acute renal failure: (3) Bilateral hydronephrosis: (4) Metabolic acidosis: (5) Hyperkalemia: (6) Hypotension: (7) Hematuria: (8) Aspiration pneumonitis: Admission and Anticipated Discharge Date Admission Date: September 30, 2024 Subjective 64-year-old male with acute renal failure and bilateral hydronephrosis, Received hemodialysis earlier today and then went to the OR where he had bilateral ureteral stents placed. Patient was noted to have severe inflammation throughout the bladder with areas of bleeding ulceration and is now undergoing bladder irrigation. Intraoperative procedure was also complicated by upper respiratory bleeding during the case in which the patient had to be intubated and was significantly hypoxic during the procedure. On arrival to the ICU patient was on 100% FiO2, and would not maintain oxygen saturations. Chest x- ray showed significant consolidation and lung collapse in the right upper lobe. He underwent emergent bronc where he was found to have significant clot burden with occlusion of right mainstem. See procedure note for details. Oxygenation has significantly improved post bronc. Will continue to wean vent settings but continue with mechanical ventilation overnight. Chest x-ray and ABG ordered for this a.m. Patient to remain in ICU for further management at this time. Review of Systems Review of Systems: Unobtainable due to endotracheal tube and Unobtainable due to reduced consciousness Physical Exam Constitutional: + thin and + mechanically ventilated Eyes: PERRL, conjunctivae normal, anicteric sclerae ENMT: external ear and nose normal, oropharynx normal Neck: trachea midline, no thyromegaly Respiratory: Mechanically ventilated. Right upper lung delgado diminished with auscultation, while left upper and lower lobes clear to auscultation. Symmetrical chest wall movement. Cardiovascular: Rate/Rhythm: regular rate, regular rhythm and + tachycardic Heart Sounds: normal S1 and normal S2; no murmur Extremities: no edema Gastrointestinal (Abdomen): normal bowel sounds, soft, nontender, no hepatosplenomegaly Musculoskeletal: no cyanosis or clubbing, extremities motor strength 5/5 Skin: no rashes, warm and dry Neurologic: Unable to assess due to sedation Psychiatric: Unable to assess due to sedation Genitourinary: Irrigation Cramer present and bladder currently being irrigated. Blood-tinged urine noted draining from the Cramer tube with small clots and sediment. Results & Data Results & Data Vital Signs (Past 12 Hours) Vital Signs Temp Pulse Pulse Pulse Pulse Resp BP 10/01/24 19:37 36.3 C L 106 H 20 10/01/24 19:32 36.3 C L 106 H 18 10/01/24 19:22 36.3 C L 117 H 18 10/01/24 17:10 36.7 C 82 22 10/01/24 15:46 36.6 C 82 18 10/01/24 14:06 81 10/01/24 12:14 36.6 C 93 H 20 10/01/24 11:52 36.5 C 84 10/01/24 11:30 96 H 140/86 10/01/24 11:00 79 149/93 H 10/01/24 10:30 101 H 145/95 H 10/01/24 10:00 86 171/102 H 10/01/24 09:30 77 168/97 H 10/01/24 09:00 80 167/93 H BP BP Pulse Ox O2 Del Method FiO2 10/01/24 19:37 118/87 94 Mechanical Vent 100 10/01/24 19:32 130/95 86 L Ambu-Bag 100 10/01/24 19:22 131/94 84 L Mechanical Vent 100 10/01/24 17:10 163/102 H 92 Room Air 10/01/24 15:46 175/93 H 92 Room Air 10/01/24 14:06 10/01/24 12:14 151/85 H 94 Room Air 10/01/24 11:52 162/89 H 10/01/24 11:30 10/01/24 11:00 10/01/24 10:30 10/01/24 10:00 10/01/24 09:30 10/01/24 09:00 Coding Level of Care Code 88506 CRITICAL CARE 1ST 30-74M Diagnoses Acute hypoxemic respiratory failure J96.01 Acute renal failure N17.9 Bilateral hydronephrosis N13.30 Metabolic acidosis E87.20 Hyperkalemia E87.5 Hypotension I95.9 Hematuria R31.9 Aspiration pneumonitis J69.0
--- NOTE | 2024-10-01 20:54 | Procedure Note ---
Procedure Note Date of Service October 01, 2024 FEMORAL CENTRAL LINE PROCEDURE NOTE: Procedure: Femoral Central Line Placement Attending: Dr. Ankit Joyner Provider: KIA Patel Indication: Central Drug Administration, Poor Venous Access Anesthesia: [None Line placed emergently in the setting of shock requiring vasopressor support port and intubated patient A time-out was completed verifying correct patient, procedure, site, positioning, and implants(s) or special equipment if applicable. Patient's Right Groin was cleansed and draped in the typical sterile fashion using Chloraprep. The Femoral Vein and Femoral Artery were identified using ultrasound. The Femoral Vein was cannulated under direct ultrasound guidance using an introducer needle on a syringe. Good venous blood return was maintained prior to removal of syringe from introducer needle. Using Seldinger Technique, a guide wire was a dvanced through the introducer needle without resistance. The introducer needle was removed and ultrasound images were obtained of the guide wire within the Femoral Vein and saved to the patient's medical record. A small incision was made in penetrating fashion at the guide wire insertion site utilizing an 11 blade scalpel. The dilator was advanced to the vessel without resistance. The dilator was exchanged for the triple lumen catheter which was advanced into the vessel without resistance. The guide wire was removed intact from the catheter without issue. Claves were placed on each catheter tip with confirmation of good blood flow from each lumen. Each port was easily flushed with sterile saline. The catheter was placed at the hub and sutured in place. BioPatch was applied to the catheter and a sterile Tegaderm dressing was applied over the catheter with careful attention to sterility. Patient tolerated procedure well. No immediate complications were met. Procedural Ultrasound Guidance: Procedure Date: 10/01/2024 Indication: Central venous catheter insertion Attending: Dr. Ankit Joyner Provider: KIA Patel Artery AND Vein visualized: Yes Compressible Vein: Yes Guidewire or Short Catheter seen in vein prior to dilation: Yes Line confirmed in Vein with ultrasound: Yes [facility] [place] Procedure Codes (Charges) Tubes, Drains, and Vasc Access Procedure 1: Tubes, Drains, and Vasc Access: [id number] Insertion Of Non-tunneled Catheter Age 5 Yrs> Procedure 2: Tubes, Drains, and Vasc Access: [id number] Ultrasound Guidance For Vascular Coding CPT Codes Tubes, Drains, and Vasc Access - Tubes, Drains, and Vasc Access: [id number] Insertion Of Non-tunneled Catheter Age 5 Yrs> ([id number]) Tubes, Drains, and Vasc Access - Tubes, Drains, and Vasc Access: [id number] Ultrasound Guidance For Vascular ([id number]) Additional Codes Date of Service ([facility].SURGERY)
[2024-10-01 20:58] LABS: iSTAT Allen Test Pass; iSTAT Art Bld Gas pCO2 Correct 54 mmHg (35-46); iSTAT Art Bld Gas pH Corrected 7.282 (7.35-7.45); iSTAT Arterial Blood Gas HCO3 26 meg/L (19-24); iSTAT Arterial Blood Gas pCO2 56 mmHg (35-46); iSTAT Arterial Blood Gas pH 7.27 (7.35-7.45); iSTAT Arterial Blood Gas pO2 43 mmHg (80-95); iSTAT Arterial Blood Gas pO2 C 41; iSTAT Carbon Dioxide 27 mmol/L (24-31); iSTAT FiO2 100 %; iSTAT Hematocrit 37 % (42-52); iSTAT Hemoglobin 12.6 g/dl (14.0-18.0); iSTAT Potassium 4.1 mmol/L (3.3-5.0); iSTAT Sample Type Arterial; iSTAT Site L Radial; iSTAT Sodium 137 mmol/L (135-144); iSTAT SpO2 79
[2024-10-01 21:27] LABS: Partial Thromboplastin Time 28 Seconds (21-31); Prothrombin Time 11.3 Seconds (9.0-12.0)
--- NOTE | 2024-10-01 21:34 | Electrocardiogram Report ---
Test Reason : Blood Pressure : */* mmHG Vent. Rate : 69 BPM Atrial Rate : 69 BPM P-R Int : 184 ms QRS Dur : 70 ms QT Int : 378 ms P-R-T Axes : 64 -7 49 degrees QTcB Int : 405 ms Normal sinus rhythm Septal infarct , age undetermined Abnormal ECG No previous ECGs available Confirmed by Preston Guerra ([id number]) on 10/01/2024 9:34:32 PM Referred By: REFERRED SELF Confirmed By: Preston Guerra
--- NOTE | 2024-10-01 21:40 | Urology Progress Note ---
Date of Service October 01, 2024 Assessment & Plan (1) Aspiration pneumonitis: (2) Hematuria: (3) Hypotension: (4) Acute renal failure: (5) Acute hypoxemic respiratory failure: (6) Metabolic acidosis: (7) Bilateral hydronephrosis: (8) MICHELE (acute kidney injury): Plan Postop day 0 status post clot evacuation, cauterization/fulguration of prostatic and bladder bleed, and bilateral stent placement. Patient seen in the critical care unit. Evaluated initially right after surgery and again after completion of bronchoscopy and stabilization. Currently intubated and sedated. Had undergone bronchoscopy after cystoscopy secondary to persistent hypoxia. Did develop acute respiratory failure and hypoxia intraoperatively and was converted from monitored anesthetic care to general endotracheal tube intubation. Remained hypoxic post procedure. Was transferred to the ICU immediately postoperatively and underwent critical management and assessment by ICU team. Had undergone bronchoscopy while in the ICU with findings of significant clot within the right bronchi causing obstruction specifically the right side. Had developed possible nosebleed during procedure with possible aspiration possibly causing obstruction. Patient is undergoing close critical management. Oxygen saturation has significantly improved. Patient has otherwise remained on CBI with significant clearing of the urine. Now light pink. Urine output will likely need to be monitored closely and may be difficult to monitor while on continuous bladder irrigation. Lab work during acute episode was reviewed. Hemoglobin had remained stable. Continue critical management close monitoring. Continue to monitor labs closely. Admission and Anticipated Discharge Date Admission Date: September 30, 2024 Subjective Evaluation patient in the ICU. Postop from stent placement for bilateral obstruction with acute renal failure likely multifactorial possibly secondary to obstruction issues. Intraoperatively and postoperatively patient had significant hypoxia. Patient was moved from the OR to the ICU and kept ventilated. Postoperatively was having significant hypoxia and status post bronchoscopy by critical care. Found to have obstruction of the right bronchi secondary to clot material. Was able to be cleared. No active bleeding seen within lung. To be clot material possibly aspiration possibly secondary to nosebleed. Patient intubated sedated. Undergoing CBI with significant clearing of urine. Undergoing close critical management and monitoring. Review of Systems Review of Systems: Unobtainable due to endotracheal tube and Unobtainable due to reduced consciousness Physical Exam Physical Exam: General: Intubated sedated. Afebrile mild tachycardia. HEENT: Normocephalic Atraumatic. Intubated. Inspection normal. Respiratory: On mechanical vent. Nonlabored. Cardiovascular: Mild tachycardia Skin: [place] and Dry. No rashes or visible lesions. Extremities/Lymphatics: No edema Abdomen: Soft Non-distended. : Cramer catheter in place draining light pink urine. On continuous bladder irrigation Results & Data Vital Signs (Past 12 Hours) Vital Signs Temp Pulse Pulse Pulse Pulse Resp BP 10/01/24 21:00 20 10/01/24 19:37 36.3 C L 106 H 20 10/01/24 19:32 36.3 C L 106 H 18 10/01/24 19:22 36.3 C L 117 H 18 10/01/24 19:13 117 H 19 10/01/24 17:10 36.7 C 82 22 10/01/24 15:46 36.6 C 82 18 10/01/24 14:06 81 10/01/24 12:14 36.6 C 93 H 20 10/01/24 11:52 36.5 C 84 10/01/24 11:30 96 H 140/86 10/01/24 11:00 79 149/93 H 10/01/24 10:30 101 H 145/95 H 10/01/24 10:00 86 171/102 H 10/01/24 09:30 77 168/97 H BP BP Pulse Ox O2 Del Method FiO2 10/01/24 21:00 40 10/01/24 19:37 118/87 94 Mechanical Vent 100 10/01/24 19:32 130/95 86 L Ambu-Bag 100 10/01/24 19:22 131/94 84 L Mechanical Vent 100 10/01/24 19:13 84 L 100 10/01/24 17:10 163/102 H 92 Room Air 10/01/24 15:46 175/93 H 92 Room Air 10/01/24 14:06 10/01/24 12:14 151/85 H 94 Room Air 10/01/24 11:52 162/89 H 10/01/24 11:30 10/01/24 11:00 10/01/24 10:30 10/01/24 10:00 10/01/24 09:30 PG Care Time/CCT Total # of Minutes Spent Total Time Spent with Patient: Total time spent is greater than 50% in coordination of care (as documented) at patient's floor/unit and/or counseling patient: Coding Level of Care Code None Diagnoses Aspiration pneumonitis J69.0 Hematuria R31.9 Hypotension I95.9 Acute renal failure N17.9 Acute hypoxemic respiratory failure J96.01 Metabolic acidosis E87.20 Bilateral hydronephrosis N13.30 MICHELE (acute kidney injury) N17.9
[2024-10-01] MEDS: EPINEPHrine INJ 1 MG/ML AMP ONE (21:44)
[2024-10-01] MEDS: ceFAZolin 2,000 MG/15 ML IV PUSH IV ONE (21:44)
[2024-10-01] MEDS: ARTIFICIAL TEARS OP OINT 3.5 GM TUBE OP SCH (21:50)
[2024-10-01] MEDS: CALCIUM GLUCONATE 1,000 MG/60 ML BAG IV STA (22:01)
[2024-10-01] MEDS: FAMOTIDINE 20MG IV PUSH 20 MG/5 ML SYR IV SCH (22:02)
[2024-10-02] MEDS: SODIUM CHLORIDE 0.9% 1,000 ML IV SCH (01:35)
[2024-10-02] MEDS: ALBUT/IPRATROP 3MG/0.5MG NEB 3 ML VIAL NEB SCH (02:01)
[2024-10-02 02:09] LABS: Fibrinogen 598 mg/dl (184-400)
[2024-10-02 03:59] LABS: Hematocrit (blood only) 35.6 % (42.0-52.0); Hemoglobin 12.3 g/dl (14.0-18.0); Mean Corpuscular Hgb Conc 34.6 g/dL (32.0-36.0); Mean Corpuscular Volume 98.3 fL (80.0-100.0); Mean Platelet Volume 10.5 fL (9.4-12.4); Platelet Count 203 K/uL (130-400); RDW Coefficient of Variation 14.4 % (11.5-14.5); RDW Standard Deviation 52.5 fL (36.4-46.3); Red Blood Count 3.62 M/uL (4.70-6.10); White Blood Count 15.81 K/ul (4.8-10.8)
[2024-10-02 04:20] LABS: Albumin Level 3.3 gm/dl (3.4-5.0); BUN Creatinine Ratio 5.9 (10-20); Calcium 8.7 mg/dl (8.6-10.3); Creatinine Clr Calc Pharmacy 13.9 ml/min; Magnesium 1.6 mg/dl (1.7-2.4); Potassium 4.7 mmol/L (3.5-5.1)
[2024-10-02 05:28] LABS: iSTAT Allen Test Pass; iSTAT Art Bld Gas pCO2 Correct 38 mmHg (35-46); iSTAT Art Bld Gas pH Corrected 7.389 (7.35-7.45); iSTAT Arterial Blood Gas HCO3 23 meg/L (19-24); iSTAT Arterial Blood Gas pCO2 38 mmHg (35-46); iSTAT Arterial Blood Gas pH 7.39 (7.35-7.45); iSTAT Arterial Blood Gas pO2 98 mmHg (80-95); iSTAT Arterial Blood Gas pO2 C 98; iSTAT Carbon Dioxide 24 mmol/L (24-31); iSTAT FiO2 50 %; iSTAT Hematocrit 34 % (42-52); iSTAT Hemoglobin 11.6 g/dl (14.0-18.0); iSTAT Potassium 4.5 mmol/L (3.3-5.0); iSTAT Sample Type Arterial; iSTAT Site L Radial; iSTAT Sodium 139 mmol/L (135-144); iSTAT SpO2 96
[2024-10-02] MEDS: MAGNESIUM SULFATE / D5W 1 GM/100 ML BAG IV SCH (06:22)
--- NOTE | 2024-10-02 07:54 | XRay Report ---
EXAM: XR chest 1V portable CLINICAL HISTORY: RESP FAILURE KAA/KAB. TECHNIQUE: An X-ray image of the chest is obtained in 1 frontal projection. COMPARISON: 09/30/2024 CR. FINDINGS: ETT with its tip about 6.6 cm above the dion. Left CVL likely reaching the proximal SVC. Pulmonary Parenchyma: Unchanged right lung upper zone opacities. Unchanged emphysematous lungs. Unchanged prominence of bronchovascular markings noted bilaterally. No evidence of pleural effusion. Heart and Mediastinum: Heart size and shape are normal. No mediastinal widening or masses. No hilar or mediastinal lymphadenopathy. Bony Thorax: Bony thorax appears intact without fractures or deformities. Soft Tissues: Soft tissues overlying the chest wall are unremarkable. IMPRESSION: 1. Unchanged right lung upper zone opacities. 2. Unchanged emphysematous lungs. 3. Unchanged prominence of bronchovascular markings noted bilaterally. 4. ETT with its tip about 6.6 cm above the dion. Electronically signed by Sarah Magaña 10-02-2024 07:54 AM
--- NOTE | 2024-10-02 08:02 | Fluoroscopy Report ---
FL retrograde includes kub CLINICAL HISTORY: BILATERAL CYSTO STENT COMPARISON STUDY: CT of the abdomen and pelvis September 29, 2024. FLUOROSCOPY TIME: 5 minutes and 57 seconds. Ka,r: 60.15 mGy FLUOROSCOPIC IMAGES: 12 FINDINGS: Fluoroscopy was provided during bilateral retrograde pyelograms with bilateral ureteral meghana nt placement. The stents are well-positioned. Bilateral hydroureteronephrosis was noted. IMPRESSION: Fluoroscopy provided during bilateral retrograde exams with bilateral ureteral stent ins ertion. ACT 112: Negative or not required by law. Electronically signed by: Prashant Johnston M.D. 10/02/2024 8:00 AM
--- NOTE | 2024-10-02 08:06 | Critical Care Progress Note ---
Date of Service October 02, 2024 Assessment & Plan (1) Hemoptysis: (2) Acute hypoxemic respiratory failure: (3) Bilateral hydronephrosis: (4) Acute renal failure: Plan Reason Critically Ill: 64-year-old male with acute renal failure and bilateral hydronephrosis presents to the ICU post operatively for bilateral ureteral stent placement and currently undergoing continuous bladder irrigation therapy. Operative case complicated by upper airway bleeding and aspiration of blood clot with occlusion of the right mainstem which caused significant hypoxia requiring mechanical ventilation, and Emergently bronched postop. Recommendations Neuro -sedation off and patient now extubated. Will need physical therapy and Occupational Therapy evaluations. Keep in bed until hemodynamics have stabilized. Cardiac -hypotension requiring Armand-Synephrine. Wean as tolerated now that he is off sedation. May benefit from some additional volume administration. Once off pressors, can discontinue central line in the groin. Respiratory -hypoxemic respiratory failure secondary to aspiration of blood. Chest x-ray this morning markedly better and patient oxygenating well. Extubated. Wean oxygen as tolerated. Continue pulmonary toilet. Likely has COPD. Not bronchospastic. No indication for steroids. Bronchodilators as needed. Does have some apical scarring/consolidation and a follow-up CT scan in 3 months time is recommended. GI -okay to advance diet as tolerated RENAL/LYTES -acute renal failure, multifactorial. Status post bilateral stents. No obvious source for the hydronephrosis. Management per nephrology. Will need outpatient follow-up with urology given his bilateral stents. If the patient is going to receive dialysis today, may need to follow in the ICU as he may require some pressor support his hemodynamics stabilized. -hydronephrosis status post ureteral stents. Significant hematuria. Continue CBI per nephrology. ENDO - No history of diabetes or thyroid disease. ICU hyperglycemic protocol HEME - H&H stable. Patient noted to have hematuria and upper airway bleeding Intraoperatively - Coags currently pending ID - No indication for infectious process at this time. Trend fever curve. LINES/IV ACCESS - Right femoral CVC, peripheral IVs DVT PROPHYLAXIS - SCDs, hold anticoagulation in the setting of hematuria Admission and Anticipated Discharge Date Admission Date: September 30, 2024 Subjective Patient seen and examined. EMR reviewed. Discussed with ERA overnight. Also discussed with bedside critical care nurse and on multidisciplinary rounds. Patient is much better this morning. His x-ray is improved. He is vent requirements are minimal. He was placed on SBT and extubated. He offers no complaints currently. Pressor requirements are being weaned off. Review of Systems Review of Systems: All systems reviewed & are unremarkable except as noted in Subjective Physical Exam Constitutional: WD/WN, vitals as above no acute distress Eyes: + anicteric sclerae Neck: normal visual inspection Respiratory: normal respiratory effort; no respiratory distress and no cough Auscultation: lungs clear to auscultation bilaterally Cardiovascular: Rate/Rhythm: regular rate and regular rhythm Heart Sounds: normal S1 and normal S2 Extremities: no edema Gastrointestinal (Abdomen): Inspection/Auscultation: abdomen normal to inspection and normal bowel sounds Percussion/Palpation: abdomen soft; a bdomen nontender Musculoskeletal: Extremities: extremities normal to inspection Neurologic: no focal motor deficits Psychiatric: Orientation: alert and oriented x 3 Affect: euthymic affect Results & Data Results & Data Vital Signs (Past 12 Hours) Vital Signs Temp Pulse Resp BP Pulse Ox O2 Del Method FiO2 10/02/24 07:44 37.7 C H 10/02/24 07:30 104/75 10/02/24 07:27 97 H 22 94 10/02/24 07:15 96/70 L 10/02/24 07:09 102 H 27 H 94 10/02/24 07:03 103 H 21 93 Mechanical Vent 50 10/02/24 07:00 95/65 L 10/02/24 06:57 102 H 22 93 10/02/24 06:45 94/69 L 10/02/24 06:42 106 H 22 93 10/02/24 06:30 105 H 21 93 10/02/24 06:30 89/65 L 10/02/24 06:24 106 H 21 93 10/02/24 06:15 85/64 L 10/02/24 06:15 85/64 L 10/02/24 06:15 85/64 L 10/02/24 06:15 85/64 L 10/02/24 06:15 106 H 21 93 10/02/24 06:12 107 H 22 93 10/02/24 06:00 81/63 L 10/02/24 05:57 104 H 22 93 10/02/24 05:51 99 H 20 94 10/02/24 05:45 90/67 L 10/02/24 05:45 90/67 L 10/02/24 05:45 103 H 21 93 10/02/24 05:30 101 H 20 93 10/02/24 05:30 98/69 L 10/02/24 05:30 98/69 L 10/02/24 05:30 98/69 L 10/02/24 05:27 102 H 21 93 10/02/24 05:15 91/67 L 10/02/24 05:15 91/67 L 10/02/24 05:15 91/67 L 10/02/24 05:14 101 H 20 95 40 10/02/24 05:12 103 H 17 96 10/02/24 05:09 104 H 19 95 10/02/24 04:54 105 H 20 95 10/02/24 04:45 105 H 19 95 10/02/24 04:45 92/70 L 10/02/24 04:30 93/70 L 10/02/24 04:30 106 H 21 96 10/02/24 04:21 104 H 20 95 10/02/24 04:18 105 H 19 95 10/02/24 04:15 89/68 L 10/02/24 04:15 89/68 L 10/02/24 03:57 103 H 20 96 10/02/24 03:57 50 10/02/24 03:51 106 H 20 95 10/02/24 03:45 89/70 L 10/02/24 03:45 105 H 20 95 10/02/24 03:42 105 H 21 96 10/02/24 03:30 104 H 20 96 10/02/24 03:30 99/67 L 10/02/24 03:30 99/67 L 10/02/24 03:24 104 H 21 96 10/02/24 03:15 97/72 L 10/02/24 03:15 97/72 L 10/02/24 03:09 106 H 22 96 10/02/24 03:03 106 H 22 96 10/02/24 03:00 99/73 L 10/02/24 03:00 99/73 L 10/02/24 02:54 102 H 21 98 10/02/24 02:51 102 H 22 97 10/02/24 02:45 103/69 10/02/24 02:45 103/69 10/02/24 02:45 103/69 10/02/24 02:45 101 H 20 97 10/02/24 02:42 101 H 20 96 10/02/24 02:30 104/72 10/02/24 02:30 104/72 10/02/24 02:30 104/72 10/02/24 02:30 104/72 10/02/24 02:30 100 H 21 97 10/02/24 02:27 98 H 20 96 10/02/24 02:15 98/74 L 10/02/24 02:15 98/74 L 10/02/24 02:12 96 H 20 98 10/02/24 02:03 96 H 20 97 50 10/02/24 02:00 96/73 L 10/02/24 01:54 100 H 20 96 10/02/24 01:42 100 H 20 96 10/02/24 01:30 92/70 L 10/02/24 01:18 100 H 20 94 10/02/24 01:15 90/68 L 10/02/24 01:15 90/68 L 10/02/24 01:15 90/68 L 10/02/24 01:15 101 H 20 95 10/02/24 01:12 102 H 20 94 10/02/24 01:11 88/66 L 10/02/24 01:01 73/58 L 10/02/24 00:57 109 H 20 93 10/02/24 00:54 109 H 20 93 10/02/24 00:46 70/50 L 10/02/24 00:45 115 H 20 92 10/02/24 00:30 124 H 17 92 10/02/24 00:30 108/67 10/02/24 00:29 37.1 C 10/02/24 00:15 132 H 20 91 10/02/24 00:15 126/83 10/02/24 00:15 126/83 10/02/24 00:01 111/94 10/02/24 00:01 111/94 10/02/24 00:01 111/94 10/02/24 00:00 50 10/02/24 00:00 133 H 25 H 90 10/01/24 23:42 127 H 21 90 10/01/24 23:33 126 H 20 90 10/01/24 23:30 126/96 10/01/24 23:30 126/96 10/01/24 23:30 126/96 10/01/24 23:24 124 H 20 91 10/01/24 23:15 124/89 10/01/24 23:15 124/89 10/01/24 23:15 124/89 10/01/24 23:15 124/89 10/01/24 23:15 123 H 20 92 10/01/24 23:12 122 H 20 93 10/01/24 23:06 124 H 20 93 10/01/24 23:00 123/95 10/01/24 22:48 118 H 20 91 10/01/24 22:45 145/100 H 10/01/24 22:45 145/100 H 10/01/24 22:39 116 H 20 92 10/01/24 22:34 146/100 H 10/01/24 22:33 103 H 20 93 10/01/24 22:30 145/100 H 10/01/24 22:30 145/100 H 10/01/24 22:27 97 H 20 96 10/01/24 22:21 100 H 18 92 10/01/24 22:19 98 H 20 93 40 10/01/24 22:00 139/97 10/01/24 22:00 139/97 10/01/24 21:45 86 20 93 10/01/24 21:42 83 20 92 10/01/24 21:30 84 20 91 10/01/24 21:30 110/75 10/01/24 21:30 110/75 10/01/24 21:30 110/75 10/01/24 21:21 85 20 91 10/01/24 21:15 86 20 89 L 10/01/24 21:00 87 20 90 10/01/24 21:00 95/68 L 10/01/24 21:00 95/68 L 10/01/24 21:00 20 40 10/01/24 20:57 87 20 91 Critical Care Results & Data Vital Signs (Past 12 Hours) Vital Signs Temp Pulse Resp BP Pulse Ox O2 Del Method FiO2 10/02/24 07:44 37.7 C H 10/02/24 07:30 104/75 10/02/24 07:27 97 H 22 94 10/02/24 07:15 96/70 L 10/02/24 07:09 102 H 27 H 94 10/02/24 07:03 103 H 21 93 Mechanical Vent 50 10/02/24 07:00 95/65 L 10/02/24 06:57 102 H 22 93 10/02/24 06:45 94/69 L 10/02/24 06:42 106 H 22 93 10/02/24 06:30 105 H 21 93 10/02/24 06:30 89/65 L 10/02/24 06:24 106 H 21 93 10/02/24 06:15 85/64 L 10/02/24 06:15 85/64 L 10/02/24 06:15 85/64 L 10/02/24 06:15 85/64 L 10/02/24 06:15 106 H 21 93 10/02/24 06:12 107 H 22 93 10/02/24 06:00 81/63 L 10/02/24 05:57 104 H 22 93 10/02/24 05:51 99 H 20 94 10/02/24 05:45 90/67 L 10/02/24 05:45 90/67 L 10/02/24 05:45 103 H 21 93 10/02/24 05:30 101 H 20 93 10/02/24 05:30 98/69 L 10/02/24 05:30 98/69 L 10/02/24 05:30 98/69 L 10/02/24 05:27 102 H 21 93 10/02/24 05:15 91/67 L 10/02/24 05:15 91/67 L 10/02/24 05:15 91/67 L 10/02/24 05:14 101 H 20 95 40 10/02/24 05:12 103 H 17 96 10/02/24 05:09 104 H 19 95 10/02/24 04:54 105 H 20 95 10/02/24 04:45 105 H 19 95 10/02/24 04:45 92/70 L 10/02/24 04:30 93/70 L 10/02/24 04:30 106 H 21 96 10/02/24 04:21 104 H 20 95 10/02/24 04:18 105 H 19 95 10/02/24 04:15 89/68 L 10/02/24 04:15 89/68 L 10/02/24 03:57 103 H 20 96 12/19/24 03:57 50 10/02/24 03:51 106 H 20 95 10/02/24 03:45 89/70 L 10/02/24 03:45 105 H 20 95 10/02/24 03:42 105 H 21 96 10/02/24 03:30 104 H 20 96 10/02/24 03:30 99/67 L 10/02/24 03:30 99/67 L 10/02/24 03:24 104 H 21 96 10/02/24 03:15 97/72 L 10/02/24 03:15 97/72 L 10/02/24 03:09 106 H 22 96 10/02/24 03:03 106 H 22 96 10/02/24 03:00 99/73 L 10/02/24 03:00 99/73 L 10/02/24 02:54 102 H 21 98 10/02/24 02:51 102 H 22 97 10/02/24 02:45 103/69 10/02/24 02:45 103/69 10/02/24 02:45 103/69 10/02/24 02:45 101 H 20 97 10/02/24 02:42 101 H 20 96 10/02/24 02:30 104/72 10/02/24 02:30 104/72 10/02/24 02:30 104/72 10/02/24 02:30 104/72 10/02/24 02:30 100 H 21 97 10/02/24 02:27 98 H 20 96 10/02/24 02:15 98/74 L 10/02/24 02:15 98/74 L 10/02/24 02:12 96 H 20 98 10/02/24 02:03 96 H 20 97 50 10/02/24 02:00 96/73 L 10/02/24 01:54 100 H 20 96 10/02/24 01:42 100 H 20 96 10/02/24 01:30 92/70 L 10/02/24 01:18 100 H 20 94 10/02/24 01:15 90/68 L 10/02/24 01:15 90/68 L 10/02/24 01:15 90/68 L 10/02/24 01:15 101 H 20 95 10/02/24 01:12 102 H 20 94 10/02/24 01:11 88/66 L 10/02/24 01:01 73/58 L 10/02/24 00:57 109 H 20 93 10/02/24 00:54 109 H 20 93 10/02/24 00:46 70/50 L 10/02/24 00:45 115 H 20 92 10/02/24 00:30 124 H 17 92 10/02/24 00:30 108/67 10/02/24 00:29 37.1 C 10/02/24 00:15 132 H 20 91 10/02/24 00:15 126/83 10/02/24 00:15 126/83 10/02/24 00:01 111/94 10/02/24 00:01 111/94 10/02/24 00:01 111/94 10/02/24 00:00 50 10/02/24 00:00 133 H 25 H 90 10/01/24 23:42 127 H 21 90 10/01/24 23:33 126 H 20 90 10/01/24 23:30 126/96 10/01/24 23:30 126/96 10/01/24 23:30 126/96 10/01/24 23:24 124 H 20 91 10/01/24 23:15 124/89 10/01/24 23:15 124/89 10/01/24 23:15 124/89 10/01/24 23:15 124/89 10/01/24 23:15 123 H 20 92 10/01/24 23:12 122 H 20 93 10/01/24 23:06 124 H 20 93 10/01/24 23:00 123/95 10/01/24 22:48 118 H 20 91 10/01/24 22:45 145/100 H 10/01/24 22:45 145/100 H 10/01/24 22:39 116 H 20 92 10/01/24 22:34 146/100 H 10/01/24 22:33 103 H 20 93 10/01/24 22:30 145/100 H 10/01/24 22:30 145/100 H 10/01/24 22:27 97 H 20 96 10/01/24 22:21 100 H 18 92 10/01/24 22:19 98 H 20 93 40 10/01/24 22:00 139/97 10/01/24 22:00 139/97 10/01/24 21:45 86 20 93 10/01/24 21:42 83 20 92 10/01/24 21:30 84 20 91 10/01/24 21:30 110/75 10/01/24 21:30 110/75 10/01/24 21:30 110/75 10/01/24 21:21 85 20 91 10/01/24 21:15 86 20 89 L 10/01/24 21:00 87 20 90 10/01/24 21:00 95/68 L 10/01/24 21:00 95/68 L 10/01/24 21:00 20 40 10/01/24 20:57 87 20 91 Lab & Micro Results (Past 24 Hours) RBC 3.62 M/uL (4.70-6.10) L 10/02/24 WBC 15.81 K/ul (4.8-10.8) H 10/02/24 Hgb 12.3 g/dl (14.0-18.0) L 10/02/24 Hct 35.6 % (42.0-52.0) L 10/02/24 MCV 98.3 fL (80.0-100.0) 10/02/24 MCH 34.0 pg (25.0-34.0) 10/02/24 MCHC 34.6 g/dL (32.0-36.0) 10/02/24 RDW Standard Deviation 52.5 fL (36.4-46.3) H 10/02/24 RDW Coefficient of Variation 14.4 % (11.5-14.5) 10/02/24 Plt Count 203 K/uL (130-400) 10/02/24 MPV 10.5 fL (9.4-12.4) 10/02/24 Neutrophils (%) (Auto) 87.1 % 10/01/24 Lymphocytes (%) (Auto) 5.8 % 10/01/24 Monocytes # (Auto) 0.90 K/uL (0.11-0.59) H 10/01/24 Eosinophils # (Auto) 0.02 K/uL (0.00-0.50) 10/01/24 Immature Granulocyte % (Auto) 0.7 % 10/01/24 Neutrophils # (Auto) 13.14 K/uL (1.40-6.50) H 10/01/24 Lymphocytes # (Auto) 0.87 K/uL (1.20-3.40) L 10/01/24 Monocytes # (Auto) 0.90 K/uL (0.11-0.59) H 10/01/24 Eosinophils # (Auto) 0.02 K/uL (0.00-0.50) 10/01/24 Basophils # (Auto) 0.04 K/uL (0.00-0.20) 10/01/24 Immature Granulocyte # (Auto) 0.11 K/uL (0.01-0.20) 4 Na 141 mmol/L (136-145) 10/02/24 K 4.7 mmol/L (3.5-5.1) 10/02/24 Cl 103 mmol/L (98-107) 10/02/24 CO2 25 mmol/L (21-32) 10/02/24 Anion Gap 13 (3-11) H 10/02/24 BUN 37 mg/dl (6-23) H 10/02/24 Creatinine 6.24 mg/dl (0.6-1.4) H* 10/02/24 BUN/Creatinine Ratio 5.9 (10-20) L 10/02/24 Glu 103 mg/dl (70-99(Fasting)) H 10/02/24 Ca 8.7 mg/dl (8.6-10.3) 10/02/24 Phosphorus Level 6.0 mg/dl (2.5-4.9) H 10/02/24 Total Bilirubin 0.4 mg/dl (0.2-1.0) 10/01/24 AST 14 U/L (13-39) 10/01/24 ALT 10 U/L (7-52) 10/01/24 Alkaline Phosphatase 71 U/L (34-104) 10/01/24 TP 7.9 gm/dl (6.0-8.3) 10/01/24 Albumin 3.3 gm/dl (3.4-5.0) L 10/02/24 Globulin 3.6 gm/dl (2.5-4.0) 10/01/24 Albumin/Globulin Ratio 1.2 (0.9-2) 12/18/24 Mg 1.6 mg/dl (1.7-2.4) L 10/02/24 03:22 Calcium Level 8.7 mg/dl (8.6-10.3) 10/02/24 03:22 Ionized Calcium 1.06 mmol/L (1.12-1.32) L 10/01/24 19:47 Prothromb Time International Ratio 1.0 (0.9-1.1) 10/01/24 19:4 7 Steve Test Pass 10/02/24 05:14 Microbiology 09/29/24 22:15 Urine Culture - Preliminary Urine,Indwelling Cath No growth - Less than 1,000 colonies/mL, Final report to follow. Diagnostic Findings (Past 24 Hours) Retrograde Pyelogram 10/01/24 00:00 FL retrograde includes kub CLINICAL HISTORY: BILATERAL CYSTO STENT COMPARISON STUDY: CT of the abdomen and pelvis September 29, 2024. FLUOROSCOPY TIME: 5 minutes and 57 seconds. Ka,r: 60.15 mGy FLUOROSCOPIC IMAGES: 12 FINDINGS: Fluoroscopy was provided during bilateral retrograde pyelograms with bilateral ureteral stent placement. The stents are well-positioned. Bilateral hydroureteronephrosis was noted. IMPRESSION: Fluoroscopy provided during bilateral retrograde exams with bilateral ureteral stent insertion. ACT 112: Negative or not required by law. Electronically signed by: Prashant Johnston M.D. 10/02/2024 8:00 AM Chest X-Ray 10/01/24 19:29 Exam(s): XR CXR 1 VIEW EXAM: XR Chest, 1 View CLINICAL HISTORY: Reason for exam: resp failure. TECHNIQUE: Frontal view of the chest. COMPARISON: 09/30/2024 FINDINGS: Lungs: Worsening consolidation and volume loss in the right upper lobe. Pleural space: No pleural effusion. No pneumothorax. Heart: Unremarkable. No cardiomegaly. Tubes, lines and devices: Endotracheal tube tip terminates 8.6 cm above the dion. Left IJ central line is unchanged. IMPRESSION: 1. Endotracheal tube tip terminates 8.6 cm above the dion. 2. Worsening consolidation and volume loss in the right upper lobe. Electronically signed by: Vamshi Pierce MD 10/01/24 19:55 PM Chest X-Ray 10/02/24 07:00 EXAM: XR chest 1V portable CLINICAL HISTORY: RESP FAILURE KAA/ZEN. TECHNIQUE: An X-ray image of the chest is obtained in 1 frontal projection. COMPARISON: 09/30/2024 CR. FINDINGS: ETT with its tip about 6.6 cm above the dion. Left CVL likely reaching the proximal SVC. Pulmonary Parenchyma: Unchanged right lung upper zone opacities. Unchanged emphysematous lungs. Unchanged prominence of bronchovascular markings noted bilaterally. No evidence of pleural effusion. Heart and Mediastinum: Heart size and shape are normal. No mediastinal widening or masses. No hilar or mediastinal lymphadenopathy. Bony Thorax: Bony thorax appears intact without fractures or deformities. Soft Tissues: Soft tissues overlying the chest wall are unremarkable. IMPRESSION: 1. Unchanged right lung upper zone opacities. 2. Unchanged emphysematous lungs. 3. Unchanged prominence of bronchovascular markings noted bilaterally. 4. ETT with its tip about 6.6 cm above the dion. Electronically signed by Sarah Magaña 10-02-2024 07:54 AM I & O Totals 24 Hours 10/01/24 10/02/24 10/03/24 06:59 06:59 06:59 Intake Total 1436.25 / 1436.25 81214.894 / 23890.894 155.883 / 155.883 Output Total 92841 / 07001 Balance 1436.25 / 1436.25 31.894 / 31.894 155.883 / 155.883 Cumulative 09/29/24 20:30 thru 10/02/24 07:37 Intake Total 36839.027 Output Total 16606 Balance 3179.027 RT Ventilator Mngmt (Last Documented) Ventilator Ordered Settings Ventilator Support Mode Assist Control 10/02/24 05:14 Respiratory Rate 22 10/02/24 07 :27 Ventilator Tidal Volume 500 10/02/24 05:14 Setting Minute Ventilation 10 10/02/24 05:14 Positive End Expiratory 5 10/02/24 05:14 Pressure Fraction of Inspired Oxygen 50 10/02/24 07:03 Ventilator - PT Measurements Respiratory Rate 22 Exhaled Tidal Volume 496 Minute Ventilation 10 Peak Inspiratory Airway 16 Pressure Plateau Pressure 13 Respiratory Cycle Inspiratory: 1:2 Expiratory Ratio Inspiratory Phase Time 1 End-Tidal CO2 26 Static Lung Compliance 62.00 Dynamic Lung Compliance 45.09 Normal Static Lung Compliance 48.00 Coding Level of Care Code 23076 SUB INP/OBS CARE 3/50MIN Diagnoses Hemoptysis R04.2 Acute hypoxemic respiratory failure J96.01 Bilateral hydronephrosis N13.30 Acute renal failure N17.9
[2024-10-02] MEDS ORDERED: ALBUT/IPRATROP 3MG/0.5MG NEB 3 ML VIAL NEB PRN (08:27)
[2024-10-02] MEDS: SODIUM CHLORIDE 0.9% 1,000 ML IV ONE (09:09)
--- NOTE | 2024-10-02 09:39 | Hospitalist Progress Note ---
Date of Service October 02, 2024 Assessment & Plan (1) MICHELE (acute kidney injury): Plan: -Likely multifactorial. - cr 6.24 today, down from 8.44 -HD as per nephrology -s/p cystoscopy and bilateral ureteral stent placement on 10/01 -con't CBI as per urology. (2) Abnormal finding on chest xray: Plan: -CT chest showing Right upper lobe volume loss with multifocal irregular densities which measure up to 3.4 x 1.6 cm. These are indeterminate but favor scarring. The appearance is not typical for pneumonia. Although within the differential, a neoplastic etiology is considered less likely. A follow-up chest CT in 3 months to ensure stability is recommended. (3) COPD (chronic obstructive pulmonary disease): Plan: -Patient denies cough, worsening SOB or wheeze -Continue to monitor Plan -Hypoxemic respiratory failure 2nd to aspiration of blood clot postoperatively -s/p intubation -Critical care following Admission and Anticipated Discharge Date Admission Date: September 30, 2024 Subjective Pt was extubated this am, responsive, off pressors. He denies any specific complaints, requesting to have his mouth moistened. Review of Systems Review of Systems: CONST: Negative for fever, body aches and chills. HENT: Negative for neck pain/stiffness, headache, congestion, sore throat, swelling. EYES: Negative for discharge/pain or vision changes. RESP: Negative for cough/hemoptysis and shortness of breath. CV: Negative chest pain, difficulty breathing, palpitations. ABD: Negative pain, nausea, vomiting. : Negative increase frequency, dysuria, blood in urine or stool. MUSC: Negative for muscle aches, edema. SKIN: Negative rash, lesions/sores. NEURO: Negative headache, dizziness, weakness. Physical Exam Physical Exam: GENERAL APPEARANCE NAD, activity normal for age, well developed/ well nourished, no cyanosis, pallor, or diaphoresis. EYES lids/conjunctiva normal. EARS/NOSE/THROAT Mucous membranes moist, nares normal, lips/teeth normal uvula midline without oral pharyngeal erythema, exudate or swelling TMs normal bilaterally. No lymphangitis/lymphedema. HEAD/NECK normocephalic atraumatic, no facial trauma, neck is supple. RESPIRATORY respiratory effort normal, speaks in full sentences, no tripod position, no accessory muscle use. Lungs clear to auscultation without rhonchi, wheezes, rales CARDIAC Regular rate and rhythm, no edema. ABDOMINAL Soft, ND/NT. No evidence of fluid wave. No pulsatile masses on exam, rebound tenderness, South sign or pain over Mcburney's point. MUSCLES/EXTREMITIES No abnormal range of motion, no swelling. SKIN Warm, pink and dry. No rashes, dermatoses, petechiae or lesions. NEUROLOGICAL Speech is clear and appropriate. Normal level of consciousness. Gait and coordination are normal. 5/5 strength in all extremities. PSYCH Normal mood and affect. Judgement/competence is appropriate Results & Data Results & Data Vital Signs (Past 12 Hours) Vital Signs Temp Pulse Resp BP Pulse Ox O2 Del Method FiO2 10/02/24 07:44 37.7 C H 10/02/24 07:38 22 94 40 10/02/24 07:38 101 H 22 93 40 10/02/24 07:30 104/75 10/02/24 07:27 97 H 22 94 10/02/24 07:15 96/70 L 10/02/24 07:09 102 H 27 H 94 10/02/24 07:03 103 H 21 93 Mechanical Vent 50 10/02/24 07:00 95/65 L 10/02/24 06:57 102 H 22 93 10/02/24 06:45 94/69 L 10/02/24 06:42 106 H 22 93 10/02/24 06:30 105 H 21 93 10/02/24 06:30 89/65 L 10/02/24 06:24 106 H 21 93 10/02/24 06:15 85/64 L 10/02/24 06:15 85/64 L 10/02/24 06:15 85/64 L 10/02/24 06:15 85/64 L 10/02/24 06:15 106 H 21 93 10/02/24 06:12 107 H 22 93 10/02/24 06:00 81/63 L 10/02/24 05:57 104 H 22 93 10/02/24 05:51 99 H 20 94 10/02/24 05:45 90/67 L 10/02/24 05:45 90/67 L 10/02/24 05:45 103 H 21 93 10/02/24 05:30 101 H 20 93 10/02/24 05:30 98/69 L 10/02/24 05:30 98/69 L 10/02/24 05:30 98/69 L 10/02/24 05:27 102 H 21 93 10/02/24 05:15 91/67 L 10/02/24 05:15 91/67 L 10/02/24 05:15 91/67 L 10/02/24 05:14 101 H 20 95 40 10/02/24 05:12 103 H 17 96 10/02/24 05:09 104 H 19 95 10/02/24 04:54 105 H 20 95 10/02/24 04:45 105 H 19 95 10/02/24 04:45 92/70 L 10/02/24 04:30 93/70 L 10/02/24 04:30 106 H 21 96 10/02/24 04:21 104 H 20 95 10/02/24 04:18 105 H 19 95 10/02/24 04:15 89/68 L 10/02/24 04:15 89/68 L 10/02/24 03:57 103 H 20 96 10/02/24 03:57 50 10/02/24 03:51 106 H 20 95 10/02/24 03:45 89/70 L 10/02/24 03:45 105 H 20 95 10/02/24 03:42 105 H 21 96 10/02/24 03:30 104 H 20 96 10/02/24 03:30 99/67 L 10/02/24 03:30 99/67 L 10/02/24 03:24 104 H 21 96 10/02/24 03:15 97/72 L 10/02/24 03:15 97/72 L 10/02/24 03:09 106 H 22 96 10/02/24 03:03 106 H 22 96 10/02/24 03:00 99/73 L 10/02/24 03:00 99/73 L 10/02/24 02:54 102 H 21 98 10/02/24 02:51 102 H 22 97 10/02/24 02:45 103/69 10/02/24 02:45 103/69 10/02/24 02:45 103/69 10/02/24 02:45 101 H 20 97 10/02/24 02:42 101 H 20 96 10/02/24 02:30 104/72 10/02/24 02:30 104/72 10/02/24 02:30 104/72 10/02/24 02:30 104/72 10/02/24 02:30 100 H 21 97 10/02/24 02:27 98 H 20 96 10/02/24 02:15 98/74 L 10/02/24 02:15 98/74 L 10/02/24 02:12 96 H 20 98 10/02/24 02:03 96 H 20 97 50 10/02/24 02:00 96/73 L 10/02/24 01:54 100 H 20 96 10/02/24 01:42 100 H 20 96 10/02/24 01:30 92/70 L 10/02/24 01:18 100 H 20 94 10/02/24 01:15 90/68 L 10/02/24 01:15 90/68 L 10/02/24 01:15 90/68 L 10/02/24 01:15 101 H 20 95 10/02/24 01:12 102 H 20 94 10/02/24 01:11 88/66 L 10/02/24 01:01 73/58 L 10/02/24 00:57 109 H 20 93 10/02/24 00:54 109 H 20 93 10/02/24 00:46 70/50 L 10/02/24 00:45 115 H 20 92 10/02/24 00:30 124 H 17 92 10/02/24 00:30 108/67 10/02/24 00:29 37.1 C 10/02/24 00:15 132 H 20 91 10/02/24 00:15 126/83 10/02/24 00:15 126/83 10/02/24 00:01 111/94 10/02/24 00:01 111/94 10/02/24 00:01 111/94 10/02/24 00:00 50 10/02/24 00:00 133 H 25 H 90 10/01/24 23:42 127 H 21 90 10/01/24 23:33 126 H 20 90 10/01/24 23:30 126/96 10/01/24 23:30 126/96 10/01/24 23:30 126/96 10/01/24 23:24 124 H 20 91 10/01/24 23:15 124/89 12/18/24 23:15 124/89 10/01/24 23:15 124/89 10/01/24 23:15 124/89 10/01/24 23:15 123 H 20 92 10/01/24 23:12 122 H 20 93 10/01/24 23:06 124 H 20 93 10/01/24 23:00 123/95 10/01/24 22:48 118 H 20 91 10/01/24 22:45 145/100 H 10/01/24 22:45 145/100 H 10/01/24 22:39 116 H 20 92 10/01/24 22:34 146/100 H 10/01/24 22:33 103 H 20 93 10/01/24 22:30 145/100 H 10/01/24 22:30 145/100 H 10/01/24 22:27 97 H 20 96 10/01/24 22:21 100 H 18 92 10/01/24 22:19 98 H 20 93 40 10/01/24 22:00 139/97 10/01/24 22:00 139/97 10/01/24 21:45 86 20 93 10/01/24 21:42 83 20 92 PG Care Time/CCT Total # of Minutes Spent Total Time Spent with Patient: Total time spent is greater than 50% in coordination of care (as documented) at patient's floor/unit and/or counseling patient: Coding Level of Care Code 01877 SUB INP/OBS CARE 2/35MIN Diagnoses MICHELE (acute kidney injury) N17.9 Abnormal finding on chest xray R93.89 COPD (chronic obstructive pulmonary disease) J44.9
--- NOTE | 2024-10-02 10:49 | Urology Progress Note ---
Date of Service October 02, 2024 Assessment & Plan (1) Acute renal failure: (2) Bilateral hydronephrosis: (3) Hematuria: Plan: 64 yo/M admitted for acute renal failure and hyperkalemia. Patient POD #1 s/p cystoscopy with clot evacuation, fulguration of bleeding ulcers, fulguration of bleeding prostatic varicosities, bilateral retrograde pyelogram, bilateral ureteral dilation and bilateral stent placement, difficult catheter placement with Dr. Gale. Patient transferred to ICU after procedure due to upper airway bleeding and aspiration. He was extubated this morning. Afebrile, labs today reviewedcreatinine 6.24, WBC 15.81, hemoglobin 12.3. Cont inue to trend labs. Urine culture 09/29 with no growth. He is tolerating bilateral stents with minimal bother. Cramer draining light pink urine with CBI on slow. Plan to wean CBI as appropriate. Maintain Cramer catheter. Consider initiating antibiotics in context of aspiration. Continue supportive care and medical management per hospital medicine and critical care services. will follow, please contact our service with any additional questions or concerns. Admission and Anticipated Discharge Date Admission Date: September 30, 2024 Subjective Patient seen and examined at bedside this morning in ICU. Patient was taken to the ICU postoperatively for bilateral ureteral stent placement. Operative case was complicated by upper airway bleeding and aspiration. He was extubated this morning. He reports his throat hurts, but offers no additional complaints at present. Denies suprapubic or flank discomfort. Cramer patent and draining light pink urine with CBI on slow. Review of Systems Constitutional: as per Subjective / HPI Genitourinary: + as per Subjective / HPI Physical Exam Constitutional: no acute distress Respiratory: no respiratory distress and no labored breathing Gastrointestinal (Abdomen): Inspection/Auscultation: abdomen normal to inspection Musculoskeletal: Head/Neck/Chest: normocephalic Neurologic: moves all extremities and awake Psychiatric: Orientation: alert and oriented x 3 Genitourinary: Cramer patent and draining pink urine with CBI on slow Results & Data Vital Signs (Past 12 Hours) Vital Signs Temp Pulse Resp BP Pulse Ox O2 Del Method O2 Flow Rate 10/02/24 09:00 Nasal Cannula 3 10/02/24 07:44 37.7 C H 10/02/24 07:38 22 94 10/02/24 07:38 101 H 22 93 10/02/24 07:30 104/75 10/02/24 07:27 97 H 22 94 10/02/24 07:15 96/70 L 10/02/24 07:09 102 H 27 H 94 10/02/24 07:03 103 H 21 93 Mechanical Vent 10/02/24 07:00 106 H 10/02/24 07:00 95/65 L 10/02/24 06:57 102 H 22 93 10/02/24 06:45 94/69 L 10/02/24 06:42 106 H 22 93 10/02/24 06:30 105 H 21 93 10/02/24 06:30 89/65 L 10/02/24 06:24 106 H 21 93 10/02/24 06:15 85/64 L 10/02/24 06:15 85/64 L 10/02/24 06:15 85/64 L 10/02/24 06:15 85/64 L 10/02/24 06:15 106 H 21 93 10/02/24 06:12 107 H 22 93 10/02/24 06:00 81/63 L 10/02/24 05:57 104 H 22 93 10/02/24 05:51 99 H 20 94 10/02/24 05:45 90/67 L 10/02/24 05:45 90/67 L 10/02/24 05:45 103 H 21 93 10/02/24 05:30 101 H 20 93 10/02/24 05:30 98/69 L 10/02/24 05:30 98/69 L 10/02/24 05:30 98/69 L 10/02/24 05:27 102 H 21 93 10/02/24 05:15 91/67 L 10/02/24 05:15 91/67 L 10/02/24 05:15 91/67 L 10/02/24 05:14 101 H 20 95 10/02/24 05:12 103 H 17 96 10/02/24 05:09 104 H 19 95 10/02/24 04:54 105 H 20 95 10/02/24 04:45 105 H 19 95 10/02/24 04:45 92/70 L 10/02/24 04:30 93/70 L 10/02/24 04:30 106 H 21 96 10/02/24 04:21 104 H 20 95 12/19/24 04:18 105 H 19 95 10/02/24 04:15 89/68 L 10/02/24 04:15 89/68 L 10/02/24 03:57 103 H 20 96 10/02/24 03:57 10/02/24 03:51 106 H 20 95 10/02/24 03:45 89/70 L 10/02/24 03:45 105 H 20 95 10/02/24 03:42 105 H 21 96 10/02/24 03:30 104 H 20 96 10/02/24 03:30 99/67 L 10/02/24 03:30 99/67 L 10/02/24 03:24 104 H 21 96 10/02/24 03:15 97/72 L 10/02/24 03:15 97/72 L 10/02/24 03:09 106 H 22 96 10/02/24 03:03 106 H 22 96 10/02/24 03:00 99/73 L 10/02/24 03:00 99/73 L 10/02/24 02:54 102 H 21 98 10/02/24 02:51 102 H 22 97 10/02/24 02:45 103/69 10/02/24 02:45 103/69 10/02/24 02:45 103/69 10/02/24 02:45 101 H 20 97 10/02/24 02:42 101 H 20 96 10/02/24 02:30 104/72 10/02/24 02:30 104/72 10/02/24 02:30 104/72 10/02/24 02:30 104/72 10/02/24 02:30 100 H 21 97 10/02/24 02:27 98 H 20 96 10/02/24 02:15 98/74 L 10/02/24 02:15 98/74 L 10/02/24 02:12 96 H 20 98 10/02/24 02:03 96 H 20 97 10/02/24 02:00 96/73 L 10/02/24 01:54 100 H 20 96 10/02/24 01:42 100 H 20 96 10/02/24 01:30 92/70 L 10/02/24 01:18 100 H 20 94 10/02/24 01:15 90/68 L 10/02/24 01:15 90/68 L 10/02/24 01:15 90/68 L 10/02/24 01:15 101 H 20 95 10/02/24 01:12 102 H 20 94 10/02/24 01:11 88/66 L 10/02/24 01:01 73/58 L 10/02/24 00:57 109 H 20 93 10/02/24 00:54 109 H 20 93 10/02/24 00:46 70/50 L 10/02/24 00:45 115 H 20 92 10/02/24 00:30 124 H 17 92 10/02/24 00:30 108/67 10/02/24 00:29 37.1 C 10/02/24 00:15 132 H 20 91 10/02/24 00:15 126/83 10/02/24 00:15 126/83 10/02/24 00:01 111/94 10/02/24 00:01 111/94 10/02/24 00:01 111/94 10/02/24 00:00 10/02/24 00:00 133 H 25 H 90 10/01/24 23:42 127 H 21 90 10/01/24 23:33 126 H 20 90 10/01/24 23:30 126/96 10/01/24 23:30 126/96 10/01/24 23:30 126/96 10/01/24 23:24 124 H 20 91 10/01/24 23:15 124/89 10/01/24 23:15 124/89 10/01/24 23:15 124/89 10/01/24 23:15 124/89 10/01/24 23:15 123 H 20 92 10/01/24 23:12 122 H 20 93 10/01/24 23:06 124 H 20 93 10/01/24 23:00 123/95 FiO2 10/02/24 09:00 10/02/24 07:44 10/02/24 07:38 40 10/02/24 07:38 40 10/02/24 07:30 10/02/24 07:27 10/02/24 07:15 10/02/24 07:09 10/02/24 07:03 50 10/02/24 07:00 10/02/24 07:00 10/02/24 06:57 10/02/24 06:45 10/02/24 06:42 10/02/24 06:30 10/02/24 06:30 10/02/24 06:24 10/02/24 06:15 10/02/24 06:15 10/02/24 06:15 10/02/24 06:15 10/02/24 06:15 10/02/24 06:12 10/02/24 06:00 10/02/24 05:57 10/02/24 05:51 10/02/24 05:45 10/02/24 05:45 10/02/24 05:45 10/02/24 05:30 10/02/24 05:30 10/02/24 05:30 10/02/24 05:30 10/02/24 05:27 10/02/24 05:15 10/02/24 05:15 10/02/24 05:15 10/02/24 05:14 40 10/02/24 05:12 10/02/24 05:09 10/02/24 04:54 10/02/24 04:45 10/02/24 04:45 10/02/24 04:30 10/02/24 04:30 10/02/24 04:21 10/02/24 04:18 10/02/24 04:15 10/02/24 04:15 10/02/24 03:57 10/02/24 03:57 50 10/02/24 03:51 10/02/24 03:45 10/02/24 03:45 10/02/24 03:42 10/02/24 03:30 10/02/24 03:30 10/02/24 03:30 10/02/24 03:24 10/02/24 03:15 10/02/24 03:15 10/02/24 03:09 10/02/24 03:03 10/02/24 03:00 10/02/24 03:00 10/02/24 02:54 10/02/24 02:51 10/02/24 02:45 10/02/24 02:45 10/02/24 02:45 10/02/24 02:45 10/02/24 02:42 10/02/24 02:30 10/02/24 02:30 10/02/24 02:30 10/02/24 02:30 10/02/24 02:30 10/02/24 02:27 10/02/24 02:15 10/02/24 02:15 10/02/24 02:12 10/02/24 02:03 50 10/02/24 02:00 10/02/24 01:54 10/02/24 01:42 10/02/24 01:30 10/02/24 01:18 10/02/24 01:15 10/02/24 01:15 10/02/24 01:15 10/02/24 01:15 10/02/24 01:12 10/02/24 01:11 10/02/24 01:01 10/02/24 00:57 10/02/24 00:54 10/02/24 00:46 10/02/24 00:45 10/02/24 00:30 10/02/24 00:30 10/02/24 00:29 10/02/24 00:15 10/02/24 00:15 10/02/24 00:15 10/02/24 00:01 10/02/24 00:01 10/02/24 00:01 10/02/24 00:00 50 10/02/24 00:00 10/01/24 23:42 10/01/24 23:33 10/01/24 23:30 10/01/24 23:30 10/01/24 23:30 10/01/24 23:24 10/01/24 23:15 10/01/24 23:15 10/01/24 23:15 10/01/24 23:15 10/01/24 23:15 10/01/24 23:12 10/01/24 23:06 10/01/24 23:00 PG Care Time/CCT Total # of Minutes Spent Total Time Spent with Patient: Total time spent is greater than 50% in coordination of care (as documented) at patient's floor/unit and/or counseling patient: Coding Level of Care Code 52328 SUB INP/OBS CARE 2/35MIN Diagnoses Acute renal failure N17.9 Bilateral hydronephrosis N13.30 Hematuria R31.9
--- NOTE | 2024-10-02 11:06 | Nephrology Progress Note ---
Date of Service October 02, 2024 Assessment & Plan (1) MICHELE (acute kidney injury): (2) Hyperkalemia: (3) Bilateral hydronephrosis: (4) Metabolic acidosis: Plan 64 y o male with no known past medical history as he has not been to a physician for many years, admitted going nausea, vomiting, diarrhea, decreased urine output for 3 days and ongoing lower urinary tract symptoms for a while, noted to have MICHELE, hyperkalemia, metabolic acidosis, low urine output. Urinalysis with proteinuria and microscopic hematuria and CT abdomen pelvis concerning for bilateral mild hydronephrosis without obstructing urolithiasis but noted to have bladder outlet obstruction. Had 2 hours dialysis on 09/30/2024 for oliguria, azotemia and critical hyperkalemia and had second dialysis for 3 hours on 10/01/2024 prior to having ureteral stent placed. On 10/01/24, had cystoscopy with clot evacuation, fulguration of bleeding ulcers, fulguration of bleeding prostatic varicosities, bilateral retrograde pyelogram, bilateral ureteral dilation and bilateral stent placement. b/l kidneys were noted to be significantly displaced and severely dilated with the ureter massively dilated and severe hydronephrosis with significant blunting of the calyceal's noted. Currently on continuous bladder irrigation. Electrolytes improved after 2 [id number] dialysis. --Unclear whether there will be any further improvement in kidney function after b/l ureteral stent placement as there was significant chronicity. Will monitor kidney function and urine output. Monitor closely for need for next dialysis. If worsening of creatinine noted in next 24 hours, that would suggest possible end-stage kidney disease and will go ahead with tunneled dialysis catheter but otherwise continue to monitor over the weekend and wait for tunneled dialysis catheter on Sunday if needed. -- Dose medications for EGFR less than 10 -- Left arm nephrology precaution for future vascular access. Admission and Anticipated Discharge Date Admission Date: September 30, 2024 Elizabeth Junior was seen and evaluated this morning. He was extubated this morning, feeling much better ,denies any shortness of breath. Blood pressure stable. Electrolyte improved after dialysis yesterday. Creatinine down to 6 range. Had bilateral ureteral stent yesterday for severe hydronephrosis. Review of Systems Review of Systems: ROS was otherwise unremarkable Physical Exam Constitutional: WD/WN, vitals as above + ill appearing; no acute distress Eyes: + anicteric sclerae Respiratory: no respiratory distress and no cough Auscultation: lungs clear to auscultation bilaterally Cardiovascular: RRR, no murmur, no edema Musculoskeletal: Extremities: extremities normal to inspection Skin: no rashes, warm and dry Neurologic: no focal motor deficits Psychiatric: Orientation: alert and oriented x 3 Affect: euthymic affect Results & Data Vital Signs (Past 12 Hours) Vital Signs Temp Pulse Resp BP Pulse Ox O2 Del Method O2 Flow Rate 10/02/24 09:00 Nasal Cannula 3 10/02/24 07:44 37.7 C H 10/02/24 07:38 22 94 10/02/24 07:38 101 H 22 93 10/02/24 07:30 104/75 10/02/24 07:27 97 H 22 94 10/02/24 07:15 96/70 L 10/02/24 07:09 102 H 27 H 94 10/02/24 07:03 103 H 21 93 Mechanical Vent 10/02/24 07:00 106 H 10/02/24 07:00 95/65 L 10/02/24 06:57 102 H 22 93 10/02/24 06:45 94/69 L 10/02/24 06:42 106 H 22 93 10/02/24 06:30 105 H 21 93 10/02/24 06:30 89/65 L 10/02/24 06:24 106 H 21 93 10/02/24 06:15 85/64 L 10/02/24 06:15 85/64 L 10/02/24 06:15 85/64 L 10/02/24 06:15 85/64 L 10/02/24 06:15 106 H 21 93 10/02/24 06:12 107 H 22 93 10/02/24 06:00 81/63 L 10/02/24 05:57 104 H 22 93 10/02/24 05:51 99 H 20 94 10/02/24 05:45 90/67 L 10/02/24 05:45 90/67 L 10/02/24 05:45 103 H 21 93 10/02/24 05:30 101 H 20 93 10/02/24 05:30 98/69 L 10/02/24 05:30 98/69 L 10/02/24 05:30 98/69 L 10/02/24 05:27 102 H 21 93 10/02/24 05:15 91/67 L 10/02/24 05:15 91/67 L 10/02/24 05:15 91/67 L 10/02/24 05:14 101 H 20 95 10/02/24 05:12 103 H 17 96 10/02/24 05:09 104 H 19 95 10/02/24 04:54 105 H 20 95 10/02/24 04:45 105 H 19 95 10/02/24 04:45 92/70 L 10/02/24 04:30 93/70 L 10/02/24 04:30 106 H 21 96 10/02/24 04:21 104 H 20 95 10/02/24 04:18 105 H 19 95 10/02/24 04:15 89/68 L 10/02/24 04:15 89/68 L 10/02/24 03:57 103 H 20 96 10/02/24 03:57 10/02/24 03:51 106 H 20 95 10/02/24 03:45 89/70 L 10/02/24 03:45 105 H 20 95 10/02/24 03:42 105 H 21 96 10/02/24 03:30 104 H 20 96 10/02/24 03:30 99/67 L 10/02/24 03:30 99/67 L 10/02/24 03:24 104 H 21 96 10/02/24 03:15 97/72 L 10/02/24 03:15 97/72 L 10/02/24 03:09 106 H 22 96 10/02/24 03:03 106 H 22 96 10/02/24 03:00 99/73 L 10/02/24 03:00 99/73 L 10/02/24 02:54 102 H 21 98 10/02/24 02:51 102 H 22 97 10/02/24 02:45 103/69 10/02/24 02:45 103/69 10/02/24 02:45 103/69 10/02/24 02:45 101 H 20 97 10/02/24 02:42 101 H 20 96 10/02/24 02:30 104/72 10/02/24 02:30 104/72 10/02/24 02:30 104/72 10/02/24 02:30 104/72 10/02/24 02:30 100 H 21 97 10/02/24 02:27 98 H 20 96 10/02/24 02:15 98/74 L 10/02/24 02:15 98/74 L 10/02/24 02:12 96 H 20 98 10/02/24 02:03 96 H 20 97 10/02/24 02:00 96/73 L 10/02/24 01:54 100 H 20 96 10/02/24 01:42 100 H 20 96 10/02/24 01:30 92/70 L 10/02/24 01:18 100 H 20 94 10/02/24 01:15 90/68 L 10/02/24 01:15 90/68 L 10/02/24 01:15 90/68 L 10/02/24 01:15 101 H 20 95 10/02/24 01:12 102 H 20 94 10/02/24 01:11 88/66 L 10/02/24 01:01 73/58 L 10/02/24 00:57 109 H 20 93 10/02/24 00:54 109 H 20 93 10/02/24 00:46 70/50 L 10/02/24 00:45 115 H 20 92 10/02/24 00:30 124 H 17 92 10/02/24 00:30 108/67 10/02/24 00:29 37.1 C 10/02/24 00:15 132 H 20 91 10/02/24 00:15 126/83 10/02/24 00:15 126/83 10/02/24 00:01 111/94 10/02/24 00:01 111/94 10/02/24 00:01 111/94 10/02/24 00:00 10/02/24 00:00 133 H 25 H 90 10/01/24 23:42 127 H 21 90 10/01/24 23:33 126 H 20 90 10/01/24 23:30 126/96 10/01/24 23:30 126/96 10/01/24 23:30 126/96 10/01/24 23:24 124 H 20 91 10/01/24 23:15 124/89 10/01/24 23:15 124/89 10/01/24 23:15 124/89 10/01/24 23:15 124/89 10/01/24 23:15 123 H 20 92 10/01/24 23:12 122 H 20 93 10/01/24 23:06 124 H 20 93 FiO2 10/02/24 09:00 10/02/24 07:44 10/02/24 07:38 40 10/02/24 07:38 40 10/02/24 07:30 10/02/24 07:27 10/02/24 07:15 10/02/24 07:09 10/02/24 07:03 50 10/02/24 07:00 10/02/24 07:00 10/02/24 06:57 10/02/24 06:45 10/02/24 06:42 10/02/24 06:30 10/02/24 06:30 10/02/24 06:24 10/02/24 06:15 10/02/24 06:15 10/02/24 06:15 10/02/24 06:15 10/02/24 06:15 10/02/24 06:12 10/02/24 06:00 10/02/24 05:57 10/02/24 05:51 10/02/24 05:45 10/02/24 05:45 10/02/24 05:45 10/02/24 05:30 10/02/24 05:30 10/02/24 05:30 10/02/24 05:30 10/02/24 05:27 10/02/24 05:15 10/02/24 05:15 10/02/24 05:15 10/02/24 05:14 40 10/02/24 05:12 10/02/24 05:09 10/02/24 04:54 10/02/24 04:45 10/02/24 04:45 10/02/24 04:30 10/02/24 04:30 10/02/24 04:21 10/02/24 04:18 10/02/24 04:15 10/02/24 04:15 10/02/24 03:57 10/02/24 03:57 50 10/02/24 03:51 10/02/24 03:45 10/02/24 03:45 10/02/24 03:42 10/02/24 03:30 10/02/24 03:30 10/02/24 03:30 10/02/24 03:24 10/02/24 03:15 10/02/24 03:15 10/02/24 03:09 10/02/24 03:03 10/02/24 03:00 10/02/24 03:00 10/02/24 02:54 10/02/24 02:51 10/02/24 02:45 10/02/24 02:45 10/02/24 02:45 10/02/24 02:45 10/02/24 02:42 10/02/24 02:30 10/02/24 02:30 10/02/24 02:30 10/02/24 02:30 10/02/24 02:30 10/02/24 02:27 10/02/24 02:15 10/02/24 02:15 10/02/24 02:12 10/02/24 02:03 50 10/02/24 02:00 10/02/24 01:54 10/02/24 01:42 10/02/24 01:30 10/02/24 01:18 10/02/24 01:15 10/02/24 01:15 10/02/24 01:15 10/02/24 01:15 10/02/24 01:12 10/02/24 01:11 10/02/24 01:01 10/02/24 00:57 10/02/24 00:54 10/02/24 00:46 10/02/24 00:45 10/02/24 00:30 10/02/24 00:30 10/02/24 00:29 10/02/24 00:15 10/02/24 00:15 10/02/24 00:15 10/02/24 00:01 10/02/24 00:01 10/02/24 00:01 10/02/24 00:00 50 10/02/24 00:00 10/01/24 23:42 10/01/24 23:33 10/01/24 23:30 10/01/24 23:30 10/01/24 23:30 10/01/24 23:24 10/01/24 23:15 10/01/24 23:15 10/01/24 23:15 10/01/24 23:15 10/01/24 23:15 10/01/24 23:12 10/01/24 23:06 PG Care Time/CCT Total # of Minutes Spent Total Time Spent with Patient: Total time spent is greater than 50% in coordination of care (as documented) at patient's floor/unit and/or counseling patient: Coding Level of Care Code 63980 SUB INP/OBS CARE 3/50MIN Diagnoses MICHELE (acute kidney injury) N17.9 Hyperkalemia E87.5 Bilateral hydronephrosis N13.30 Metabolic acidosis E87.20
[2024-10-02 11:24] LABS: Hematocrit (blood only) 32.8 % (42.0-52.0); Hemoglobin 11.1 g/dl (14.0-18.0)
[2024-10-02 19:42] LABS: Hematocrit (blood only) 31.7 % (42.0-52.0); Hemoglobin 10.9 g/dl (14.0-18.0)
[2024-10-03 05:08] LABS: Hematocrit (blood only) 29.4 % (42.0-52.0); Hemoglobin 10.1 g/dl (14.0-18.0); Mean Corpuscular Hemoglobin 33.3 pg (25.0-34.0); Mean Corpuscular Hgb Conc 34.4 g/dL (32.0-36.0); Mean Platelet Volume 10.7 fL (9.4-12.4); Platelet Count 142 K/uL (130-400); RDW Standard Deviation 50.2 fL (36.4-46.3); Red Blood Count 3.03 M/uL (4.70-6.10); White Blood Count 10.47 K/ul (4.8-10.8)
[2024-10-03 05:23] LABS: Albumin Level 3.1 gm/dl (3.4-5.0); BUN Creatinine Ratio 8.7 (10-20); Calcium 8.2 mg/dl (8.6-10.3); Creatinine Clr Calc Pharmacy 30.3 ml/min; Magnesium 1.8 mg/dl (1.7-2.4); Phosphorus 2.7 mg/dl (2.5-4.9); Potassium 3.6 mmol/L (3.5-5.1)
--- NOTE | 2024-10-03 08:55 | Urology Progress Note ---
Date of Service October 03, 2024 Assessment & Plan (1) Acute renal failure: (2) Bilateral hydronephrosis: (3) Hematuria: Plan: 64 yo/M admitted for acute renal failure and hyperkalemia. Patient POD #2 s/p cystoscopy with clot evacuation, fulguration of bleeding ulcers, fulguration of bleeding prostatic varicosities, bilateral retrograde pyelogram, bilateral ureteral dilation and bilateral stent placement, difficult catheter placement with Dr. Gale. Postoperatively he was transferred to ICU due to upper airway bleeding and aspiration. He was extubated yesterday. Transferred back to floor yesterday. Afebrile, labs today reviewedcreatinine improved to 2.86, WBC 10.47, hemoglobin 10.1. Continue to trend labs. Urine culture 09/29 with no growth. He is tolerating bilateral ureteral stents with minimal bother. Cramer draining light pink urine with CBI on slow. CBI clamped at bedside this am. Will reassess later today and discontinue CBI if urine remains appropriate. Maintain Cramer catheter likely for 1 week. Can set up voiding trial outpatient. Continue supportive care and medical management per hospital medicine and critical care services. Will arrange outpatient urology follow-up to discuss ongoing management. will follow peripherally, please contact our service with any additional questions or concerns. Admission and Anticipated Discharge Date Admission Date: September 30, 2024 Subjective Patient seen and examined at bedside this morning. No issues overnight. No concerns at this time. Cramer draining clear to light pink urine with CBI on slow. CBI clamped during exam. Denies fever or chills. Creatinine improved to 2.86 today. Review of Systems Constitutional: as per Subjective / HPI Genitourinary: + as per Subjective / HPI Physical Exam Constitutional: no acute distress Respiratory: normal respiratory effort; no respiratory distress and no labored breathing Gastrointestinal (Abdomen): Inspection/Auscultation: abdomen normal to inspection Musculoskeletal: Head/Neck/Chest: normocephalic Neurologic: moves all extremities and awake Psychiatric: Orientation: alert and oriented x 3 Genitourinary: Cramer patent and draining clear to light pink urine with CBI on slow, CBI clamped at bedside Results & Data Vital Signs (Past 12 Hours) Vital Signs Temp Pulse Pulse Resp BP Pulse Ox O2 Del Method 10/03/24 07:39 36.7 C 80 16 138/80 96 Nasal Cannula 10/03/24 07:24 Nasal Cannula 10/03/24 05:44 80 10/03/24 03:40 36.7 C 69 14 123/77 98 Nasal Cannula 10/02/24 21:49 87 10/02/24 21:12 36.8 C 93 H 16 123/75 94 Nasal Cannula 10/02/24 21:12 Nasal Cannula 10/02/24 21:10 98 H O2 Flow Rate 10/03/24 07:39 2 10/03/24 07:24 2 10/03/24 05:44 10/03/24 03:40 2 10/02/24 21:49 10/02/24 21:12 2 10/02/24 21:12 2 10/02/24 21:10 PG Care Time/CCT Total # of Minutes Spent Total Time Spent with Patient: Total time spent is greater than 50% in coordination of care (as documented) at patient's floor/unit and/or counseling patient: Coding Level of Care Code 28607 SUB INP/OBS CARE 11/08MIN Diagnoses Acute renal failure N17.9 Bilateral hydronephrosis N13.30 Hematuria R31.9
[2024-10-03] MEDS: FAMOTIDINE 20 MG TAB PO SCH (08:58)
--- NOTE | 2024-10-03 09:27 | Hospitalist Progress Note ---
Date of Service October 03, 2024 Assessment & Plan (1) MICHELE (acute kidney injury): Plan: -Likely multifactorial. - cr 2.86 today, down from 6.24 -HD as per nephrology, cr improving -s/p cystoscopy and bilateral ureteral stent placement on 10/01 -con't CBI as per urology. (2) Abnormal finding on chest xray: Plan: -CT chest showing Right upper lobe volume loss with multifocal irregular densities which measure up to 3.4 x 1.6 cm. These are indeterminate but favor scarring. The appearance is not typical for pneumonia. Although within the differential, a neoplastic etiology is considered less likely. A follow-up chest CT in 3 months to ensure stability is recommended. (3) COPD (chronic obstructive pulmonary disease): Plan: -Patient denies cough, worsening SOB or wheeze -Continue to monitor Plan -Hypoxemic respiratory failure 2nd to aspiration of blood clot postoperatively -s/p intubation -pt returned to baseline 02 sats Admission and Anticipated Discharge Date Admission Date: September 30, 2024 Subjective No events overnight, pt resting comfortably in bed. Review of Systems Review of Systems: CONST: Negative for fever, body aches and chills. HENT: Negative for neck pain/stiffness, headache, congestion, sore throat, swe lling. EYES: Negative for discharge/pain or vision changes. RESP: Negative for cough/hemoptysis and shortness of breath. CV: Negative chest pain, difficulty breathing, palpitations. ABD: Negative pain, nausea, vomiting. : Negative increase frequency, dysuria, blood in urine or stool. MUSC: Negative for muscle aches, edema. SKIN: Negative rash, lesions/sores. NEURO: Negative headache, dizziness, weakness. Physical Exam Physical Exam: GENERAL APPEARANCE NAD, activity normal for age, well developed/ well nourished, no cyanosis, pallor, or diaphoresis. EYES lids/conjunctiva normal. EARS/NOSE/THROAT Mucous membranes moist, nares normal, lips/teeth normal uvula midline without oral pharyngeal erythema, exudate or swelling TMs normal bilaterally. No lymphangitis/lymphedema. HEAD/NECK normocephalic atraumatic, no facial trauma, neck is supple. RESPIRATORY respiratory effort normal, speaks in full sentences, no tripod position, no accessory muscle use. Lungs clear to auscultation without rhonchi, wheezes, rales CARDIAC Regular rate and rhythm, no edema. ABDOMINAL Soft, ND/NT. No evidence of fluid wave. No pulsatile masses on exam, rebound tenderness, South sign or pain over Mcburney's point. MUSCLES/EXTREMITIES No abnormal range of motion, no swelling. SKIN Warm, pink and dry. No rashes, dermatoses, petechiae or lesions. NEUROLOGICAL Speech is clear and appropriate. Normal level of consciousness. Gait and coordination are normal. 5/5 strength in all extremities. PSYCH Normal mood and affect. Judgement/competence is appropriate Results & Data Results & Data Vital Signs (Past 12 Hours) Vital Signs Temp Pulse Pulse Resp BP Pulse Ox O2 Del Method 10/03/24 07:39 36.7 C 80 16 138/80 96 Nasal Cannula 10/03/24 07:24 Nasal Cannula 10/03/24 05:44 80 10/03/24 03:40 36.7 C 69 14 123/77 98 Nasal Cannula 10/02/24 21:49 87 O2 Flow Rate 10/03/24 07:39 2 10/03/24 07:24 2 10/03/24 05:44 10/03/24 03:40 2 10/02/24 21:49 PG Care Time/CCT Total # of Minutes Spent Total Time Spent with Patient: Total time spent is greater than 50% in coordination of care (as documented) at patient's floor/unit and/or counseling patient: Coding Level of Care Code 70978 SUB INP/OBS CARE 2MIN Diagnoses MICHELE (acute kidney injury) N17.9 Abnormal finding on chest xray R93.89 COPD (chronic obstructive pulmonary disease) J44.9
--- NOTE | 2024-10-03 10:27 | Nephrology Progress Note ---
Date of Service October 03, 2024 Assessment & Plan (1) MICHELE (acute kidney injury): (2) Hyperkalemia: (3) Bilateral hydronephrosis: (4) Metabolic acidosis: Plan 64 y o male with no known past medical history as he has not been to a physician for many years, admitted going nausea, vomiting, diarrhea, decreased urine output for 3 days and ongoing lower urinary tract symptoms for a while, noted to have MICHELE, hyperkalemia, metabolic acidosis, low urine output. Urinalysis with proteinuria and microscopic hematuria and CT abdomen pelvis concerning for bilateral mild hydronephrosis without obstructing urolithiasis but noted to have bladder outlet obstruction. Had 2 hours dialysis on 09/30/2024 for oliguria, azotemia and critical hyperkalemia and had second dialysis for 3 hours on 10/01/2024 prior to having ureteral stent placed. On 10/01/24, had cystoscopy with clot evacuation, fulguration of bleeding ulcers, fulguration of bleeding prostatic varicosities, bilateral retrograde pyelogram, bilateral ureteral dilation and bilateral stent placement. b/l kidneys were noted to be significantly displaced and severely dilated with the ureter massively dilated and severe hydronephrosis with significant blunting of the calyceal's noted. Currently on continuous bladder irrigation. Has Cramer catheter, urine getting much clear with only blood tinge. Kidney function rapidly improved after ureteral stent placed 2 days ago, creatinine down to 2.9, electrolyte improved. --Hopefully he will not need any more dialysis, if kidney function continues to improve, will consider removing temporary dialysis catheter over the weekend --Encourage increase p.o. intake, avoid nephrotoxic medications. --Will need close follow-up with urology as an outpatient Admission and Anticipated Discharge Date Admission Date: September 30, 2024 Elizabeth Junior was seen and evaluated this morning with family at bedside. He has been feeling much better ,denies any shortness of breath. Blood pressure stable. Rapid improvement in kidney function noted after bilateral ureteral stent on 10/01/2024, creatinine down to 2.9 this morning, hypophosphatemia resolved. Other electrolyte acceptable. Blood pressure well-controlled Review of Systems Review of Systems: ROS was otherwise unremarkable Physical Exam Constitutional: WD/WN, vitals as above no acute distress Eyes: + anicteric sclerae Respiratory: no respiratory distress and no cough Auscultation: lungs clear to auscultation bilaterally Cardiovascular: RRR, no murmur, no edema Musculoskeletal: Extremities: extremities normal to inspection Skin: no rashes, warm and dry Neurologic: no focal motor deficits Psychiatric: Orientation: alert and oriented x 3 Affect: euthymic affect Results & Data Vital Signs (Past 12 Hours) Vital Signs Temp Pulse Pulse Resp BP Pulse Ox O2 Del Method 10/03/24 07:39 36.7 C 80 16 138/80 96 Nasal Cannula 10/03/24 07:24 Nasal Cannula 10/03/24 05:44 80 10/03/24 03:40 36.7 C 69 14 123/77 98 Nasal Cannula O2 Flow Rate 10/03/24 07:39 2 10/03/24 07:24 2 10/03/24 05:44 10/03/24 03:40 2 PG Care Time/CCT Total # of Minutes Spent Total Time Spent with Patient: Total time spent is greater than 50% in coordination of care (as documented) at patient's floor/unit and/or counseling patient: Coding Level of Care Code 48301 SUB INP/OBS CARE 2/35MIN Diagnoses MICHELE (acute kidney injury) N17.9 Hyperkalemia E87.5 Bilateral hydronephrosis N13.30 Metabolic acidosis E87.20
[2024-10-04 07:44] LABS: Hematocrit (blood only) 31.9 % (42.0-52.0); Hemoglobin 11.1 g/dl (14.0-18.0); Mean Corpuscular Hemoglobin 33.1 pg (25.0-34.0); Mean Corpuscular Hgb Conc 34.8 g/dL (32.0-36.0); Mean Corpuscular Volume 95.2 fL (80.0-100.0); Mean Platelet Volume 10.9 fL (9.4-12.4); Platelet Count 186 K/uL (130-400); RDW Coefficient of Variation 13.7 % (11.5-14.5); Red Blood Count 3.35 M/uL (4.70-6.10); White Blood Count 11.26 K/ul (4.8-10.8)
[2024-10-04 07:59] LABS: Albumin Level 3.2 gm/dl (3.4-5.0); BUN Creatinine Ratio 11.3 (10-20); Calcium 8.7 mg/dl (8.6-10.3); Creatinine Clr Calc Pharmacy 42.9 ml/min; Phosphorus 2.2 mg/dl (2.5-4.9); Potassium 3.6 mmol/L (3.5-5.1)
--- NOTE | 2024-10-04 09:29 | Urology Progress Note ---
Date of Service October 04, 2024 Assessment & Plan (1) Bilateral hydronephrosis: (2) Acute renal failure: Plan MICHELE; likely multifactorial; status post bilateral ureteral stent placement catheter Drastic improvement in his urine output and creatinine Continue catheter until stable for discharge homeat that time would be reasonable to offer a voiding trial Will manage his stents long-term as an outpatient please call if further issues during this hospitalization Admission and Anticipated Discharge Date Admission Date: September 30, 2024 Subjective Continues to improve steadily He had a relatively pronounced turnaround over the past 48 to 72 hours Tolerating his catheter well Some blood in his urine but no discomfort or irritation Excellent urine output and creatinine has improved to 1.9 Physical Exam Physical Exam: Mild hematuria but good urine output through the catheter Results & Data Vital Signs (Past 12 Hours) Vital Signs Temp Pulse Pulse Resp BP BP Pulse Ox 10/04/24 07:43 36.6 C 91 H 18 126/85 94 10/04/24 07:27 82 10/04/24 02:58 36.6 C 98 H 18 143/84 H 95 10/03/24 22:26 36.7 C 82 18 152/95 H 94 10/03/24 21:46 88 O2 Del Method 10/04/24 07:43 Room Air 10/04/24 07:27 10/04/24 02:58 Room Air 10/03/24 22:26 Room Air 10/03/24 21:46 PG Care Time/CCT Total # of Minutes Spent Total Time Spent with Patient: Total time spent is greater than 50% in coordination of care (as documented) at patient's floor/unit and/or counseling patient: Coding Level of Care Code 13318 SUB INP/OBS CARE 2/35MIN Diagnoses Bilateral hydronephrosis N13.30 Acute renal failure N17.9
--- NOTE | 2024-10-04 10:13 | Hospitalist Progress Note ---
Date of Service October 04, 2024 Assessment & Plan (1) MICHELE (acute kidney injury): Plan: -Likely multifactorial. - cr 1.94 today, down from 6.24 -HD as per nephrology, cr improving -s/p cystoscopy and bilateral ureteral stent placement on 10/01 (2) Abnormal finding on chest xray: Plan: -CT chest showing Right upper lobe volume loss with multifocal irregular densities which measure up to 3.4 x 1.6 cm. These are indeterminate but favor scarring. The appearance is not typical for pneumonia. Although within the differential, a neoplastic etiology is considered less likely. A follow-up chest CT in 3 months to ensure stability is recommended. (3) COPD (chronic obstructive pulmonary disease): Plan: -Patient denies cough, worsening SOB or wheeze -Continue to monitor Plan -Hypoxemic respiratory failure 2nd to aspiration of blood clot postoperatively -s/p intubation -pt returned to baseline 02 sats -D/C home once cr normalizes Admission and Anticipated Discharge Date Admission Date: September 30, 2024 Subjective Pt doing well this am, No events overnight. Review of Systems Review of Systems: CONST: Negative for fever, body aches and chills. HENT: Negative for neck pain/stiffness, headache, congestion, sore throat, swelling. EYES: Negative for discharge/pain or vision changes. RESP: Negative for cough/hemoptysis and shortness of breath. CV: Negative chest pain, difficulty breathing, palpitations. ABD: Negative pain, nausea, vomiting. : Negative increase frequency, dysuria, blood in urine or stool. MUSC: Negative for muscle aches, edema. SKIN: Negative rash, lesions/sores. NEURO: Negative headache, dizziness, weakness. Physical Exam Physical Exam: GENERAL APPEARANCE NAD, activity normal for age, well developed/ well nourished, no cyanosis, pallor, or diaphoresis. EYES lids/conjunctiva normal. EARS/NOSE/THROAT Mucous membranes moist, nares normal, lips/teeth normal uvula midline without oral pharyngeal erythema, exudate or swelling TMs normal bilaterally. No lymphangitis/lymphedema. HEAD/NECK normocephalic atraumatic, no facial trauma, neck is supple. RESPIRATORY respiratory effort normal, speaks in full sentences, no tripod position, no accessory muscle use. Lungs clear to auscultation without rhonchi, wheezes, rales CARDIAC Regular rate and rhythm, no edema. ABDOMINAL Soft, ND/NT. No evidence of fluid wave. No pulsatile masses on exam, rebound tenderness, South sign or pain over Mcburney's point. MUSCLES/EXTREMITIES No abnormal range of motion, no swelling. SKIN Warm, pink and dry. No rashes, dermatoses, petechiae or lesions. NEUROLOGICAL Speech is clear and appropriate. Normal level of consciousness. Gait and coordination are normal. 5/5 strength in all extremities. PSYCH Normal mood and affect. Judgement/competence is appropriate Results & Data Results & Data Vital Signs (Past 12 Hours) Vital Signs Temp Pulse Pulse Resp BP BP Pulse Ox 10/04/24 07:43 36.6 C 91 H 18 126/85 94 10/04/24 07:27 82 10/04/24 02:58 36.6 C 98 H 18 143/84 H 95 10/03/24 22:26 36.7 C 82 18 152/95 H 94 O2 Del Method 10/04/24 07:43 Room Air 10/04/24 07:27 10/04/24 02:58 Room Air 10/03/24 22:26 Room Air PG Care Time/CCT Total # of Minutes Spent Total Time Spent with Patient: Total time spent is greater than 50% in coordination of care (as documented) at patient's floor/unit and/or counseling patient: Coding Level of Care Code 44421 SUB INP/OBS CARE 2/35MIN Diagnoses MICHELE (acute kidney injury) N17.9 Abnormal finding on chest xray R93.89 COPD (chronic obstructive pulmonary disease) J44.9
--- NOTE | 2024-10-04 10:58 | Nephrology Progress Note ---
Date of Service October 04, 2024 Assessment & Plan (1) MICHELE (acute kidney injury): (2) Hyperkalemia: (3) Bilateral hydronephrosis: (4) Metabolic acidosis: Plan 64 y o male with no known past medical history as he has not been to a physician for many years, admitted going nausea, vomiting, diarrhea, decreased urine output for 3 days and ongoing lower urinary tract symptoms for a while, noted to have MICHELE, hyperkalemia, metabolic acidosis, low urine output. Urinalysis with proteinuria and microscopic hematuria and CT abdomen pelvis concerning for bilateral mild hydronephrosis without obstructing urolithiasis but noted to have bladder outlet obstruction. Had 2 hours dialysis on 09/30/2024 for oliguria, azotemia and critical hyperkalemia and had second dialysis for 3 hours on 10/01/2024 prior to having ureteral stent placed. On 10/01/24, had cystoscopy with clot evacuation, fulguration of bleeding ulcers, fulguration of bleeding prostatic varicosities, bilateral retrograde pyelogram, bilateral ureteral dilation and bilateral stent placement. b/l kidneys were noted to be significantly displaced and severely dilated with the ureter massively dilated and severe hydronephrosis with significant blunting of the calyceal's noted. Currently on continuous bladder irrigation. Has Cramer catheter, urine getting much clear with only blood tinge. Kidney function rapidly improved after ureteral stent placement creatinine down to 1.9, electrolyte improved. Blood pressure well-controlled, volume status acceptable, hematuria resolving. --Expect kidney function to continue to improve, no need for any more dialysis at this time, will remove temporary dialysis catheter. --Encourage increase p.o. intake, avoid nephrotoxic medications. --Will need close follow-up with urology as an outpatient -- Okay to discharge from nephrology standpoint, recommend lab done early next week and then in 2 weeks if discharge anticipated over the weekend. Follow-up in CKD clinic in 3 to 4 weeks. Admission and Anticipated Discharge Date Admission Date: September 30, 2024 Elizabeth Junior was seen and evaluated this morning. Overall doing very well, denies any symptoms. Bladder irrigation stopped, hematuria improving significantly. Has Cramer catheter in place. Kidney function rapidly improving, creatinine down to 1.9, electrolyte acceptable. Blood pressure well-controlled. Review of Systems Review of Systems: ROS was otherwise unremarkable Physical Exam Constitutional: WD/WN, vitals as above no acute distress Eyes: + anicteric sclerae Respiratory: no respiratory distress and no cough Auscultation: lungs clear to auscultation bilaterally Cardiovascular: RRR, no murmur, no edema Musculoskeletal: Extremities: extremities normal to inspection Skin: no rashes, warm and dry Neurologic: no focal motor deficits Psychiatric: Orientation: alert and oriented x 3 Affect: euthymic affect Results & Data Vital Signs (Past 12 Hours) Vital Signs Temp Pulse Pulse Resp BP BP Pulse Ox 10/04/24 07:43 36.6 C 91 H 18 126/85 94 10/04/24 07:27 82 10/04/24 02:58 36.6 C 98 H 18 143/84 H 95 O2 Del Method 10/04/24 07:43 Room Air 10/04/24 07:27 10/04/24 02:58 Room Air PG Care Time/CCT Total # of Minutes Spent Total Time Spent with Patient: Total time spent is greater than 50% in coordination of care (as documented) at patient's floor/unit and/or counseling patient: Coding Level of Care Code 23865 SUB INP/OBS CARE 2/35MIN Diagnoses MICHELE (acute kidney injury) N17.9 Hyperkalemia E87.5 Bilateral hydronephrosis N13.30 Metabolic acidosis E87.20
[2024-10-05 06:39] LABS: Hematocrit (blood only) 33.1 % (42.0-52.0); Hemoglobin 11.6 g/dl (14.0-18.0); Mean Corpuscular Hemoglobin 33.5 pg (25.0-34.0); Mean Corpuscular Volume 95.7 fL (80.0-100.0); Mean Platelet Volume 10.7 fL (9.4-12.4); Platelet Count 228 K/uL (130-400); RDW Coefficient of Variation 13.4 % (11.5-14.5); RDW Standard Deviation 47.5 fL (36.4-46.3); Red Blood Count 3.46 M/uL (4.70-6.10); White Blood Count 11.05 K/ul (4.8-10.8)
[2024-10-05 06:58] LABS: Albumin Level 3.3 gm/dl (3.4-5.0); BUN Creatinine Ratio 14.7 (10-20); Calcium 8.8 mg/dl (8.6-10.3); Creatinine Clr Calc Pharmacy 48.5 ml/min; Phosphorus 2.4 mg/dl (2.5-4.9); Potassium 3.6 mmol/L (3.5-5.1)
--- NOTE | 2024-10-05 09:26 | Hospitalist Progress Note ---
Date of Service October 05, 2024 Assessment & Plan (1) MICHELE (acute kidney injury): Plan: -multifactorial. -s/p cystoscopy and bilateral ureteral stent placement on 10/01 -s/p HD, now with cr rapidly improving - cr 1.71 today, down from 6.24 -awaiting nephrology to d/c temp dialysis catheter -pt cleared by nephrology to be discharged -follow up with urology in 1 week, Cramer to remain in place (2) Abnormal finding on chest xray: Plan: -CT chest showing Right upper lobe volume loss with multifocal irregular densities which measure up to 3.4 x 1.6 cm. These are indeterminate but favor scarring. The appearance is not typical for pneumonia. Although within the differential, a neoplastic etiology is considered less likely. A follow-up chest CT in 3 months to ensure stability is recommended. (3) COPD (chronic obstructive pulmonary disease): Plan: -Patient denies cough, worsening SOB or wheeze -Continue to monitor (4) Acute hypoxemic respiratory failure: Plan: -Hypoxemic respiratory failure 2nd to aspiration of blood clot postoperatively -s/p intubation -pt returned to baseline 02 sats Plan -Pt stable for d/c home once temp HD removed by nephrology. Admission and Anticipated Discharge Date Admission Date: September 30, 2024 Subjective No events overnight, pt resting comfortably in bed. Feels ready to go home. Review of Systems Review of Systems: CONST: Negative for fever, body aches and chills. HENT: Negative for neck pain/stiffness, headache, congestion, sore throat, swelling. EYES: Negative for discharge/pain or vision changes. RESP: Negative for cough/hemoptysis and shortness of breath. CV: Negative chest pain, difficulty breathing, palpitations. ABD: Negative pain, nausea, vomiting. : Negative increase frequency, dysuria, blood in urine or stool. MUSC: Negative for muscle aches, edema. SKIN: Negative rash, lesions/sores. NEURO: Negative headache, dizziness, weakness. Physical Exam Physical Exam: GENERAL APPEARANCE NAD, activity normal for age, well developed/ well nourished, no cyanosis, pallor, or diaphoresis. EYES lids/conjunctiva normal. EARS/NOSE/THROAT Mucous membranes moist, nares normal, lips/teeth normal uvula midline without oral pharyngeal erythema, exudate or swelling TMs normal bilaterally. No lymphangitis/lymphedema. HEAD/NECK normocephalic atraumatic, no facial trauma, neck is supple. RESPIRATORY respiratory effort normal, speaks in full sentences, no tripod position, no accessory muscle use. Lungs clear to auscultation without rhonchi, wheezes, rales CARDIAC Regular rate and rhythm, no edema. ABDOMINAL Soft, ND/NT. No evidence of fluid wave. No pulsatile masses on exam, rebound tenderness, South sign or pain over Mcburney's point. MUSCLES/EXTREMITIES No abnormal range of motion, no swelling. SKIN Warm, pink and dry. No rashes, dermatoses, petechiae or lesions. NEUROLOGICAL Speech is clear and appropriate. Normal level of consciousness. Gait and coordination are normal. 5/5 strength in all extremities. PSYCH Normal mood and affect. Judgement/competence is appropriate Results & Data Results & Data Vital Signs (Past 12 Hours) Vital Signs Temp Pulse Pulse Resp BP Pulse Ox O2 Del Method 10/05/24 07:31 36.6 C 93 H 17 150/85 H 96 Room Air 10/05/24 03:47 36.6 C 84 18 131/87 97 Room Air 10/04/24 23:43 89 10/04/24 23:26 36.7 C 90 18 135/89 95 Room Air 10/04/24 22:20 Room Air PG Care Time/CCT Total # of Minutes Spent Total Time Spent with Patient: Total time spent is greater than 50% in coordination of care (as documented) at patient's floor/unit and/or counseling patient: Coding Level of Care Code 54699 SUB INP/OBS CARE 2/35MIN Diagnoses MICHELE (acute kidney injury) N17.9 Abnormal finding on chest xray R93.89 COPD (chronic obstructive pulmonary disease) J44.9 Acute hypoxemic respiratory failure J96.01
--- NOTE | 2024-10-05 09:30 | Discharge Summary ---
Discharge Summary Date of Service October 05, 2024 Principal Dx & Hospital Course #1 = Principal Diagnosis (1) MICHELE (acute kidney injury): -multifactorial. -s/p cystoscopy and bilateral ureteral stent placement on 10/01 -s/p HD, now with cr rapidly improving - cr 1.71 today, down from 6.24 -awaiting nephrology to d/c temp dialysis catheter -pt cleared by nephrology to be discharged -follow up with urology in 1 week, Cramer to remain in place (2) Abnormal finding on chest xray: -CT chest showing Right upper lobe volume loss with multifocal irregular densities which measure up to 3.4 x 1.6 cm. These are indeterminate but favor scarring. The appearance is not typical for pneumonia. Although within the differential, a neoplastic etiology is considered less likely. A follow-up chest CT in 3 months to ensure stability is recommended. (3) COPD (chronic obstructive pulmonary disease): -Patient denies cough, worsening SOB or wheeze -Continue to monitor (4) Acute hypoxemic respiratory failure: -Hypoxemic respiratory failure 2nd to aspiration of blood clot postoperatively -s/p intubation -pt returned to baseline 02 sats Plan -Pt stable for d/c home once temp HD removed by nephrology. Admission HPI Per Admitting Provider Vernon Son is a 64yo male with history of COPD, absent from medical care presenting with several days of nausea with non-bloody/non-bilious vomiting, diarrhea and PO intolerance. Patient reports he has not been able to tolerate anything by mouth for the last several days. He has some generalized abdominal pain as well. Additionally patient reports weak urinary stream, increased frequency and decreased UOP. Denies fever but has chills at baseline. Denies chest pain or palpitations. No hematuria or dysuria. Prior to this patient reports a weak urinary stream with incomplete bladder emptying, occasional dribbling and nocturia of 3 or more voids per night. Discharge Exam GENERAL APPEARANCE NAD, activity normal for age, well developed/ well nourished, no cyanosis, pallor, or diaphoresis. EYES lids/conjunctiva normal. EARS/NOSE/THROAT Mucous membranes moist, nares normal, lips/teeth normal uvula midline without oral pharyngeal erythema, exudate or swelling TMs normal bilaterally. No lymphangitis/lymphedema. HEAD/NECK normocephalic atraumatic, no facial trauma, neck is supple. RESPIRATORY respiratory effort normal, speaks in full sentences, no tripod position, no accessory muscle use. Lungs clear to auscultation without rhonchi, wheezes, rales CARDIAC Regular rate and rhythm, no edema. ABDOMINAL Soft, ND/NT. No evidence of fluid wave. No pulsatile masses on exam, rebound tenderness, South sign or pain over Mcburney's point. MUSCLES/EXTREMITIES No abnormal range of motion, no swelling. SKIN Warm, pink and dry. No rashes, dermatoses, petechiae or lesions. NEUROLOGICAL Speech is clear and appropriate. Normal level of consciousness. Gait and coordination are normal. 5/5 strength in all extremities. PSYCH Normal mood and affect. Judgement/competence is appropriate Discharge Plan Discharge Items Patient Disposition: Home - Self-Care Reason For Visit: MICHELE Discharge Diagnosis: MICHELE Activity: Resume your previous activity Non-emergency contact: Primary Care Provider Call non-emergency contact if: you have any medication questions Follow-up/Referrals: Kennedi Decker DO [Primary Care Provider] - Diet: Regular Addtl Attending Provider Instructions: Follow up with Urology and nephrology within 1 week Pending Studies at Discharge: No Stand-Alone Forms: [employer], Smoking Cessation Medications and DC Order Prescriptions: Continued No Known Home Medications Discharge Orders: Discharge Order (Routine); Ordered 10/05/24 Ordered By: Danyel Dominguez Admission Data Admit Date/Time: 09/30/24 01:00 Attending Provider: Danyel Dominguez Admit Provider: Stacy Botello Primary Care Provider: Kennedi Decker Other Providers: Vianney Gates; Gwyn Gale; Freddy Schuster; Ankit Joyner Hospital Stay Data Consultations 09/29/24 23:57 Consult Nephrology Stat 09/30/24 01:00 Consult Urology Routine 09/30/24 10:25 Consult Vascular Surgery Routine 09/30/24 12:55 Consult Pulmonology Routine Procedures Performed Operation Date: 10/06/24 11:00 <No data on this case meets the specified criteria> Diagnostic Imagining Performed 09/29/24 21:42 CT abd pelvis wo con Stat 09/30/24 02:58 CT chest diagnostic wo con Routine 10/01/24 FL retrograde includes kub Routine Pending Results Patient Have Any Pending Studies at Discharge: No Discharge Instructions Given to Patient (Per Discharging Provider) Follow up with Urology and nephrology within 1 week Total Time Total Time Spent Total Time Spent (In Minutes): 50 Coding Level of Care Code 81742 INP/OBS DISCH >30 MIN Diagnoses MICHELE (acute kidney injury) N17.9 Abnormal finding on chest xray R93.89 COPD (chronic obstructive pulmonary disease) J44.9 Acute hypoxemic respiratory failure J96.01
--- NOTE | 2024-10-05 11:26 | Nephrology Progress Note ---
Date of Service October 05, 2024 Assessment & Plan (1) MICHELE (acute kidney injury): (2) Hyperkalemia: (3) Bilateral hydronephrosis: (4) Metabolic acidosis: Plan 64 y o male with no known past medical history as he has not been to a physician for many years, admitted going nausea, vomiting, diarrhea, decreased urine output for 3 days and ongoing lower urinary tract symptoms for a while, noted to have MICHELE, hyperkalemia, metabolic acidosis, low urine output. Urinalysis with proteinuria and microscopic hematuria and CT abdomen pelvis concerning for bilateral mild hydronephrosis without obstructing urolithiasis but noted to have bladder outlet obstruction. Had 2 hours dialysis on 09/30/2024 for oliguria, azotemia and critical hyperkalemia and had second dialysis for 3 hours on 10/01/2024 prior to having ureteral stent placed. On 10/01/24, had cystoscopy with clot evacuation, fulguration of bleeding ulcers, fulguration of bleeding prostatic varicosities, bilateral retrograde pyelogram, bilateral ureteral dilation and bilateral stent placement. b/l kidneys were noted to be significantly displaced and severely dilated with the ureter massively dilated and severe hydronephrosis with significant blunting of the calyceal's noted. Currently on continuous bladder irrigation. Has Cramer catheter, urine getting much clear with only blood tinge. Kidney function rapidly improved after ureteral stent placement creatinine down to 1.7, electrolyte improved. Blood pressure well-controlled, volume status acceptable, hematuria resolving. --Expect kidney function to continue to improve, waiting for removal of temporary dialysis catheter. --Encourage increase p.o. intake, avoid nephrotoxic medications. --Will need close follow-up with urology as an outpatient --Okay to discharge from nephrology standpoint, recommend lab done early next week and then in 2 weeks if discharge anticipated over the weekend. Follow-up in CKD clinic in 3 to 4 weeks. Admission and Anticipated Discharge Date Admission Date: September 30, 2024 Elizabeth Junior was seen and evaluated this morning. Overall doing very well, denies any symptoms. Bladder irrigation stopped, hematuria improving significantly. Has Cramer catheter in place. Kidney function rapidly improving, creatinine down to 1.7, electrolyte acceptable. Blood pressure well-controlled. Review of Systems Review of Systems: ROS was otherwise unremarkable Physical Exam Constitutional: WD/WN, vitals as above no acute distress Eyes: + anicteric sclerae Respiratory: no respiratory distress and no cough Auscultation: lungs clear to auscultation bilaterally Cardiovascular: RRR, no murmur, no edema Musculoskeletal: Extremities: extremities normal to inspection Skin: no rashes, warm and dry Neurologic: no focal motor deficits Psychiatric: Orientation: alert and oriented x 3 Affect: euthymic affect Genitourinary: Cramer bag with blood tinged urine Results & Data Vital Signs (Past 12 Hours) Vital Signs Temp Pulse Pulse Pulse Resp BP Pulse Ox 10/05/24 11:14 36.5 C 87 20 149/106 H 96 10/05/24 07:31 36.6 C 93 H 17 150/85 H 96 10/05/24 03:47 36.6 C 84 18 131/87 97 10/04/24 23:43 89 10/04/24 23:26 36.7 C 90 18 135/89 95 O2 Del Method 10/05/24 11:14 Room Air 10/05/24 07:31 Room Air 10/05/24 03:47 Room Air 10/04/24 23:43 10/04/24 23:26 Room Air PG Care Time/CCT Total # of Minutes Spent Total Time Spent with Patient: Total time spent is greater than 50% in coordination of care (as documented) at patient's floor/unit and/or counseling patient: Coding Level of Care Code 78131 SUB INP/OBS CARE 2/35MIN Diagnoses MICHELE (acute kidney injury) N17.9 Hyperkalemia E87.5 Bilateral hydronephrosis N13.30 Metabolic acidosis E87.20
[2024-10-05 13:00] VITALS: BP 135/86; PULSE 86; RESP 18; TEMP 97.7; O2SAT 96
[2024-10-09 15:03] LABS: ANCA Screen C-ANCA POS (Negative); Albumin 3.8 g/dL (3.8-4.8); Alpha 1 Globulin 0.5 g/dL (0.2-0.3); Alpha 2 Globulin 0.8 g/dL (0.5-0.9); Anti Nuclear Antibody Screen POSITIVE (NEGATIVE); Anti-Glom Basement Antibody <1.0 AI (<1.0); Beta-1-Globulin 0.4 g/dL (0.4-0.6); Beta-2-Globulin 0.5 g/dL (0.2-0.5); Gamma Globulin 1.1 g/dL (0.8-1.7); Monoclonal Protein Band 1 DNR g/dL (NONE DETECTED); Monoclonal Protein Band 2 DNR g/dL (NONE DETECTED); Monoclonal Protein Band 3 DNR g/dL (NONE DETECTED)
[2024-10-09 17:21] LABS: ANA Pattern Cytoplasmic; ANA Titer 1:40 titer
[2024-10-09 17:22] LABS: C-ANCA(Reflex Only Do not Ord) 1:20 Titer (<1:20)
== END 2024-10-05 13:53 | disposition home or self-care (01) | DRG 659 ==
LOC: ED 20:30 → 2N 09-30 01:00 → SUATTDRO 09-30 01:00 → 2N 09-30 01:58 → 2W 10-01 05:13 → 1E 10-01 19:32 → 2N 10-02 21:20

== ENCOUNTER 2025-01-06 13:15 | Inpatient (IN) ==
--- NOTE | 2025-01-06 13:41 | Emergency Department Note ---
Impression & Plan Breath shortness, Pleural effusion, Leg edema, left ED Provider Note NAME: BUTCH GATES AGE: 64 SEX: M : 1960 ARRIVES VIA: Walk-In INFORMANT: Patient ED PROVIDER(S): Bubba Rodriguez DO CHIEF COMPLAINT: Swelling of the left lower extremity HPI: Patient is a 64-year-old male with a past medical history of metastatic bladder cancer who presents to the ER referred in for swelling of his left lower extremity. Patient notes that he had a Cramer in had it placed on his left leg. This was for 3 months. Just recently had it removed. Swelling is been there since then. He believes he had the bag too tight. He denies any headache or change in vision. He admits to increasing shortness of breath. No belly pain, nausea, vomiting, or diarrhea. No dysuria, urgency or frequency. No other exacerbating or remitting factors. ADDITIONAL HISTORY OBTAINED: Per HPI Chronic Medical/Social Conditions Affecting Care: Per HPI PAST MEDICAL HISTORY:See Below PAST SURGICAL HISTORY:See Below FAMILY HISTORY:See Below SOCIAL HISTORY:See Below HOME MEDICATIONS:See Below ALLERGIES:See Below VITALS:See Below PHYSICAL EXAMINATION: GENERAL: Sitting up in bed, alert, well appearing, well nourished, no distress, non-toxic EYE EXAM: normal conjunctiva. OROPHARYNX: no exudate, no erythema, lips, buccal mucosa, and tongue normal and mucous membranes are moist NECK: supple, no nuchal rigidity, no adenopathy, non-tender LUNGS: Clear to auscultation. Normal chest wall mechanics HEART: no murmurs, S1 normal and S2 normal ABDOMEN: abdomen soft, non-tender, normo-active bowel sounds, no masses, no rebound or guarding. UPPER EXTREMITIES: upper extremities are grossly normal. LOWER EXTREMITIES: Left calf larger than right. Pitting edema present. DPs 2 out of 4 bilaterally. NEURO EXAM: Normal sensorium, cranial nerves II-XII grossly intact, normal speech, no gross weakness of arms, no gross weakness of legs. MEDICAL DECISION MAKING: Patient is a 64-year-old male who presents ER for the below stated complaint with metastatic cancer for shortness of breath and left lower extremity swelling. IV was established and blood work was obtained. Left lower extremity with significant swelling. Hemoglobin slightly low at 2.4. No significant leukocytosis. BMP with a creatinine of 2 up from baseline of 1.7. LFTs and bilirubin were unremarkable. Troponin was negative. Lipase normal. Duplex of the left lower extremity showed no DVT. Chest x-ray showed a worsening pleural effusion. 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 Did also recommend NPO. External records were reviewed in regards to the chest x-ray performed earlier today which showed a pleural effusion. Consults/Care Managements Discussions: Per [facility] Triage Nursing notes reviewed. Limited review of prior medical records performed Vital Signs: reviewed and remarkable for no significant abnormalities Differential diagnosis: Differential diagnoses includes but is not limited to pneumonia, bronchitis, COPD/Asthma exacerbation, pneumothorax, pulmonary embolism, congestive heart failure, acute coronary syndrome ER treatment provided: See below Diagnostics interpreted by me include EKG and cardiac monitoring as listed below: -Cardiac Monitoring: An order was placed for continuous cardiac monitoring. The monitor shows a rate of 90 with sinus rhythm. -ECG: Sinus rhythm rate 69 Normal axis No PVCs QTc 420 -Laboratory studies:Interpreted by me as stated above in MDM and shown below. Imaging studies: Xrays: As interpreted by me: External records reviewed which showed a pleural effusion from earlier today on chest x-ray CTs show: none Duplex of left lower extremity shows no DVT. Procedures:none Critical Care: None Past Med/Surg History Problem List (Updated 01/06/25 @ 17:29 by Bubba Rodriguez DO) Leg edema, left (Acute) Breath shortness (Acute) Chronic anemia Vitamin D deficiency Stage 3b chronic kidney disease Encounter for pre-operative examination Mediastinal adenopathy Pleural effusion (Acute) Penile pain (Acute) Scrotal edema (Acute) Lung abnormality (Acute) Bladder cancer Antineutrophil cytoplasmic antibody (ANCA) positive Medical History (Updated 01/06/25 @ 17:29 by Bubba Rodriguez DO) Hx of bladder cancer dx "early" 2024, sx "at this point" Hx of pleural effusion thoracentesis 12/30/24 History of respiratory failure 09/2024 -Hypoxemic respiratory failure 2nd to aspiration of blood clot postoperatively -s/p intubation -pt returned to baseline 02 sats Hematuria hx, "not much now" Bilateral hydronephrosis Hx of aspiration pneumonitis 09/2024- resolved Antineutrophil cytoplasmic antibody (ANCA) positive -questionable- repeat ANCA antibody test 10/22/24 negative - mildly positive C ANCA antibody during 09/2024 admission - per nephrology note 10/22/24 "unlikely it is anything clinically significant as kidney function continues to improve rapidly and blood pressure has been well-controlled" Hx of acute renal failure - 09/2024- multifactorial per records- received 2 treatents of dialysis while admitted to [facility] 09/2024 via neck port (no longer in place) - s/p cysto and bilateral ureteral stent placement 10/01/24 - seen by nephro 10/22/24- stable- following repeat labs/follow up 01/02/25 COPD (chronic obstructive pulmonary disease) hx Surgical History (Updated 01/06/25 @ 16:13 by Cate Navarrete, [place]) Port-A-Cath in place (01/06/25) Insertion Access Port with Fluoroscopy Right Internal Jugular Vein(Right) - Jevon Dove, DO History of transurethral resection of bladder tumor (TURBT) 10/2024, large tumor removed along with cysto/bilat. stent exchange 12/01/24, TURBT and TURP History of thoracentesis 12/30/24, [facility] Hx of cystoscopy 10/01/[address] [facility] 11/13/24>Cystoscopy with Retrograde Pyelogram and Bilateral Stent Exchange + TURBT History of carpal tunnel release of both wrists History of vasectomy Family History Father Colorectal cancer Other Prostate cancer Social History Smoking Status: Former smoker Tobacco Type: Cigarettes Age Started Using Tobacco: 15; Age Quit Using Tobacco: 61; packs per day: 3; Second Hand Exposure: No; Do You Dip or Chew Tobacco: No; Hx Alcohol Use: No Hx Substance Use: No Preferred Language: Tajik Communication Ability: Effective Clerk Travel Reservations Required: No Beliefs That Will Affect Care: None marital status: Current Living Situation: Spouse Feels Safe at Home: Yes during the past year weight has: decreased > 10 lbs Assistive Devices: Glasses Allergies Allergies Allergy/AdvReac Type Severity Reaction Status Date / Time No Known Allergies Allergy Verified 01/06/25 16:59 Home Meds Home Medications Medication Instructions Recorded Confirmed oxybutynin chloride 5 mg tablet 5 mg PO UD PRN Bladder Spasms 12/30/24 01/06/25 tamsulosin 0.4 mg capsule 0.4 mg PO HS 12/30/24 01/06/25 bisacodyl 5 mg tablet,delayed 5 mg PO HS PRN Constipation 01/06/25 01/06/25 release (Dulcolax (bisacodyl)) famotidine 20 mg tablet (Pepcid) 20 mg PO HS 01/06/25 01/06/25 naproxen sodium 220 mg tablet 440 mg PO BID PRN Pain 01/06/25 01/06/25 (Aleve) oxycodone-acetaminophen 7.5 mg-325 1 tab PO Q8H PRN Pain 01/06/25 01/06/25 mg tablet polyethylene glycol 3350 17 17 g PO DAILY PRN Constipation 01/06/25 01/06/25 gram/dose oral powder (Miralax) Previous Rx's Medication Instructions Recorded phenazopyridine 200 mg tablet 200 mg PO Q8H PRN pain #10 tabs 12/01/24 (Pyridium) Results & Data (ED) Vital Signs Vital Signs - 24 hr 01/06/25 13:21 01/06/25 13:48 Temperature 36.4 C L Temperature Source Skin Pulse Rate 90 73 Respiratory Rate 18 Blood Pressure 137/95 Blood Pressure Mean 109 Pulse Oximetry 99 Oxygen Delivery Method Room Air Sepsis Recent Fever Within 48 Hours No Sepsis New/Unexplained Change in Mental Status No Sepsis Action Taken by Nursing No Action Required Laboratory Data 01/06/25 14:14 01/06/25 14:14 Lab Results 01/06/25 Range/Units 14:14 WBC 7.66 (4.8-10.8) K/ul RBC 3.79 L (4.70-6.10) M/uL Hgb 12.4 L (14.0-18.0) g/dl Hct 37.3 L (42.0-52.0) % MCV 98.4 (80.0-100.0) fL MCH 32.7 (25.0-34.0) pg MCHC 33.2 (32.0-36.0) g/dL RDW Std Deviation 54.1 H (36.4-46.3) fL RDW Coeff of Nadege 15.0 H (11.5-14.5) % Plt Count 360 (130-400) K/uL MPV 9.6 (9.4-12.4) fL Immature Gran % (Auto) 0.4 % Neut % (Auto) 80.4 % Lymph % (Auto) 12.1 % [place] % (Auto) 6.3 % Eos % (Auto) 0.4 % Baso % (Auto) 0.4 % Neut # (Auto) 6.16 (1.40-6.50) K/uL Lymph # (Auto) 0.93 L (1.20-3.40) K/uL [place] # (Auto) 0.48 (0.11-0.59) K/uL Eos # (Auto) 0.03 (0.00-0.50) K/uL Baso # (Auto) 0.03 (0.00-0.20) K/uL Immature Gran # (Auto) 0.03 (0.01-0.20) K/uL Sodium 137 (136-145) mmol/L Potassium 4.8 (3.5-5.1) mmol/L Chloride 102 (98-107) mmol/L Carbon Dioxide 27 (21-32) mmol/L Anion Gap 8 (3-11) BUN 27 H (6-23) mg/dl Creatinine 2.00 H (0.6-1.4) mg/dl Est Cr Clr Drug Dosing Not Reportable eGFR 36.58 BUN/Creatinine Ratio 13.5 (10-20) Glucose 102 H (70-99(Fasting)) mg/dl Calcium 9.6 (8.6-10.3) mg/dl Total Bilirubin 0.3 (0.2-1.0) mg/dl AST 15 (13-39) U/L ALT 11 (7-52) U/L Alkaline Phosphatase 244 H (34-104) U/L Troponin I High Sens 5.8 (0-20) pg/ml Total Protein 7.3 (6.0-8.3) gm/dl Albumin 3.3 L (3.4-5.0) gm/dl Globulin 4.0 (2.5-4.0) gm/dl Albumin/Globulin Ratio 0.8 L (0.9-2) Lipase 3 L (11-82) U/L Imaging Data Radiologist's Impression: Venous Doppler Study 01/06/25 13:41 LEFT LOWER EXTREMITY VENOUS DOPPLER HISTORY: Acute pain and swelling of the left lower leg lle swelling COMPARISON STUDY: None. FINDINGS: Subcutaneous edema. There is normal compressibility, flow, and augmentation within the left lower extremity deep venous system. IMPRESSION: No DVT within the left lower extremity. ACT 112: Negative or not required by law. Electronically signed by: Tony Hansen M.D. 01/06/2025 2:50 PM Discharge Plan Visit Data Chief Complaint: Swelling/Edema to Extremity Stated Complaint: EDEMA LT LEG ED Provider: Bubba Rodriguez Discharge Problem: Breath shortness, Pleural effusion, Leg edema, left Forms Stand Alone Forms: [facility] [employer] Prescriptions Prescriptions: No Action phenazopyridine [Pyridium] 200 mg tablet 200 mg PO Q8H PRN (Reason: pain) Qty: 10 0RF Rx Instructions: PER PT "HAVE BEEN TAKING 1 TAB DAILY, JUST BECAUSE". tamsulosin 0.4 mg capsule 0.4 mg PO HS oxybutynin chloride 5 mg tablet 5 mg PO UD PRN (Reason: Bladder Spasms) Rx Instructions: 1 TABLET ORALLY EVERY 8 HOURS NEEDED FOR BLADDER SPASMS famotidine [Pepcid] 20 mg Tablet 20 mg PO HS naproxen sodium [Aleve] 220 mg Tablet 440 mg PO BID PRN (Reason: Pain) oxycodone-acetaminophen 7.5-325 mg Tablet 1 tab PO Q8H PRN (Reason: Pain) bisacodyl [Dulcolax (bisacodyl)] 5 mg Tablet,Delayed Release (Dr/Ec) 5 mg PO HS PRN (Reason: Constipation) polyethylene glycol 3350 [Miralax] 17 gram/dose Powder 17 g PO DAILY PRN (Reason: Constipation) Referrals Referrals: Stacy Topete CRNP [Primary Care Provider] -
[2025-01-06 14:29] LABS: Basophils # (auto) 0.03 K/uL (0.00-0.20); Basophils % (auto) 0.4 %; Eosinophils # (auto) 0.03 K/uL (0.00-0.50); Eosinophils % (auto) 0.4 %; Hematocrit (blood only) 37.3 % (42.0-52.0); Hemoglobin 12.4 g/dl (14.0-18.0); Immature Granulocytes # (auto) 0.03 K/uL (0.01-0.20); Immature Granulocytes % (auto) 0.4 %; Lymphocytes # (auto) 0.93 K/uL (1.20-3.40); Lymphocytes % (auto) 12.1 %; Mean Corpuscular Hemoglobin 32.7 pg (25.0-34.0); Mean Corpuscular Hgb Conc 33.2 g/dL (32.0-36.0); Mean Corpuscular Volume 98.4 fL (80.0-100.0); Mean Platelet Volume 9.6 fL (9.4-12.4); Monocytes # (auto) 0.48 K/uL (0.11-0.59); Monocytes % (auto) 6.3 %; Neutrophils # (auto) 6.16 K/uL (1.40-6.50); Neutrophils % (auto) 80.4 %; Platelet Count 360 K/uL (130-400); RDW Standard Deviation 54.1 fL (36.4-46.3); Red Blood Count 3.79 M/uL (4.70-6.10); White Blood Count 7.66 K/ul (4.8-10.8)
--- NOTE | 2025-01-06 14:51 | Ultrasound Report ---
LEFT LOWER EXTREMITY VENOUS DOPPLER HISTORY: Acute pain and swelling of the left lower leg lle swelling COMPARISON STUDY: None. FINDINGS: Subcutaneous edema. There is normal compressibility, flow, and augmentation within the left lower extremity deep venous system. IMPRESSION: No DVT within the left lower extremity. ACT 112: Negative or not required by law. Electronically signed by: Tony Hansen M.D. 01/06/2025 2:50 PM
[2025-01-06 14:52] LABS: Alanine Aminotransferase 11 U/L (7-52); Albumin Globulin Ratio 0.8 (0.9-2); Albumin Level 3.3 gm/dl (3.4-5.0); Alkaline Phosphatase 244 U/L (34-104); Anion Gap 8 (3-11); Aspartate Aminotransferase 15 U/L (13-39); BUN Creatinine Ratio 13.5 (10-20); Bilirubin,Total 0.3 mg/dl (0.2-1.0); Blood Urea Nitrogen 27 mg/dl (6-23); Calcium 9.6 mg/dl (8.6-10.3); Carbon Dioxide 27 mmol/L (21-32); Chloride 102 mmol/L (98-107); Glucose 102 mg/dl (70-99(Fasting)); Lipase 3 U/L (11-82); Potassium 4.8 mmol/L (3.5-5.1); Sodium 137 mmol/L (136-145); Total Protein 7.3 gm/dl (6.0-8.3)
[2025-01-06 14:54] LABS: Troponin I High Sensitivity 5.8 pg/ml (0-20)
[2025-01-06] MEDS ORDERED: AA 4.25%/D5W 1L 1,000 ML in Peripheral TPN bag 0 ML IV SCH (16:00)
--- NOTE | 2025-01-06 16:05 | Pulmonary Consultation ---
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 Dietary exclusion of longchain triglycerides is encouraged Oral vitamins should be provided If the drainage still significant which is >1L day then surgery should be considered Once the pleural drainage decreases medium-chain triglycerides carb introduced -- Metastatic invasive bladder cancer S/p right-sided port placement Plan is to have chemotherapy in the near future I did discuss the case with Dr. Gonzalez, unfortunately chemotherapy cannot be started in hospital Plan: Patient was given option of thoracentesis or putting a chest tube and giving a trial of parenteral nutrition for 2 days along with octreotide to see if it resolves on its own I do think the patient's reason for cardiothoracic is most likely underlying malignancy affecting the thoracic duct Pleurx catheter would not be a good option for him as chylothorax is very high risks to get infected. Patient opted for chest tube. Will start him on TPN but it would be only tomorrow. Recommend Low-fat (less than 10 g/day, high-protein. Dietary exclusion of longchain triglycerides is encouraged Please note the above document was generated using voice recognition software. It may contain grammatical, syntax or spelling errors.Any formal questions or concerns about the content, text or information contained within the body of this dictation should be directly addressed to the provider for clarification. History of Present Illness History of Present Illness 64-year-old male coming to the ER because of shortness of breath Past medical history: Metastatic invasive bladder cancer, CKD Pulmonary were consulted to see the patient in the ED At the time of examination patient family was at bedside Patient was not in any respiratory distress He was saturating 98-99% on room air Heart rate was in the mid to high 70s. Systolic blood pressure in the 150s He went to see oncology today and they found out that he had swelling in the lower extremity for which he was sent here along with shortness of breath Lower extremity Doppler was negative for DVT He did have right-sided pleural effusion which was getting worse He does complain of cough and bringing up clear to yellow phlegm. Denies any hemoptysis No fever or chills No night sweats, has been losing weight with decreased appetite since being diagnosed with invasive bladder cancer No nausea or vomiting Social history: Former smoker Allergies Allergy/AdvReac Type Severity Reaction Status Date / Time No Known Allergies Allergy Verified 01/06/25 16:59 Home Medications Medication Instructions Recorded Confirmed Type phenazopyridine 200 mg tablet 200 mg PO Q8H PRN pain #10 tabs 12/01/24 01/06/25 Rx (Pyridium) oxybutynin chloride 5 mg tablet 5 mg PO UD PRN Bladder Spasms 12/30/24 01/06/25 History tamsulosin 0.4 mg capsule 0.4 mg PO HS 12/30/24 01/06/25 History bisacodyl 5 mg tablet,delayed 5 mg PO HS PRN Constipation 01/06/25 01/06/25 History release (Dulcolax (bisacodyl)) famotidine 20 mg tablet (Pepcid) 20 mg PO HS 01/06/25 01/06/25 History naproxen sodium 220 mg tablet 440 mg PO BID PRN Pain 01/06/25 01/06/25 History (Aleve) oxycodone-acetaminophen 7.5 mg-325 1 tab PO Q8H PRN Pain 01/06/25 01/06/25 History mg tablet polyethylene glycol 3350 17 17 g PO DAILY PRN Constipation 01/06/25 01/06/25 History gram/dose oral powder (Miralax) Patient History Medical History (Updated 01/06/25 @ 17:51 by Eric Coronel MD, [facility]) Hx of bladder cancer dx "early" 2024, sx "at this point" Hx of pleural effusion thoracentesis 12/30/24 History of respiratory failure 09/2024 -Hypoxemic respiratory failure 2nd to aspiration of blood clot postoperatively -s/p intubation -pt returned to baseline 02 sats Hematuria hx, "not much now" Bilateral hydronephrosis Hx of aspiration pneumonitis 09/2024- resolved Antineutrophil cytoplasmic antibody (ANCA) positive -questionable- repeat ANCA antibody test 10/22/24 negative - mildly positive C ANCA antibody during 09/2024 admission - per nephrology note 10/22/24 "unlikely it is anything clinically significant as kidney function continues to improve rapidly and blood pressure has been well-controlled" Hx of acute renal failure - 09/2024- multifactorial per records- received 2 treatents of dialysis while admitted to [facility] 09/2024 via neck port (no longer in place) - s/p cysto and bilateral ureteral stent placement 10/01/24 - seen by nephro 10/22/24- stable- following repeat labs/follow up 01/02/25 COPD (chronic obstructive pulmonary disease) hx Surgical History (Updated 01/06/25 @ 16:13 by Cate Navarrete, CA) Port-A-Cath in place (01/06/25) Insertion Access Port with Fluoroscopy Right Internal Jugular Vein(Right) - Jevon Dove, DO History of transurethral resection of bladder tumor (TURBT) 10/2024, large tumor removed along with cysto/bilat. stent exchange 12/01/24, TURBT and TURP History of thoracentesis 12/30/24, [facility] Hx of cystoscopy 10/01/24 @ [facility] 11/13/24>Cystoscopy with Retrograde Pyelogram and Bilateral Stent Exchange + TURBT History of carpal tunnel release of both wrists History of vasectomy Family History Father Colorectal cancer Other Prostate cancer Social History Smoking Status: Former smoker Tobacco Type: Cigarettes Age Started Using Tobacco: 15; Age Quit Using Tobacco: 61; packs per day: 3; Second Hand Exposure: No; Do You Dip or Chew Tobacco: No; Hx Alcohol Use: No Hx Substance Use: No Preferred Language: Pashto Communication Ability: Effective Workers Compensation Claims Supervisor Required: No Beliefs That Will Affect Care: None marital status: Current Living Situation: Spouse Feels Safe at Home: Yes during the past year weight has: decreased > 10 lbs Assistive Devices: Glasses Review of Systems 2 Review of Systems: All systems reviewed & are unremarkable except as noted in HPI & below Physical Exam 2 Physical Exam: Constitutional: No acute distress, frail-appearing HEENT: EOMI, PERRLA Respiratory system: Decreased air entry on the right side, no wheeze, rhonchi, positive crackles bilaterally CVS: S1-S2 positive, no murmurs or gallops Abdomen: Soft, nontender, nondistended, positive bowel sounds x4 Extremities: +2 pulses bilaterally radialis/ dorsalis pedis, no cyanosis, +1 pitting edema bilateral lower extremity, left> right Neuro: Awake alert oriented x3 Psych: Normal mood and affect G/U: No Cramer Skin: no rashes, warm and dry Lymphatic: no cervical or axillary lymphadenopathy Results & Data Results & Data Vital Signs (Past 12 Hours) Vital Signs Temp Pulse Resp BP Pulse Ox O2 Del Method 01/06/25 13:48 73 01/06/25 13:21 36.4 C L 90 18 137/95 99 Room Air Laboratory Results 01/06/25 14:14 01/06/25 14:14 PG Care Time/CCT Total # of Minutes Spent Total Time Spent with Patient: Total time spent is greater than 50% in coordination of care (as documented) at patient's floor/unit and/or counseling patient: Coding Level of Care Code 10517 INT INP/OBS CARE 3/75MIN Diagnoses 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
--- NOTE | 2025-01-06 17:06 | History & Physical Report ---
Date of Service January 06, 2025 Assessment & Plan (1) Chylothorax: (2) Leg edema, left: (3) On total parenteral nutrition (TPN): Ana Delarosa is a 64-year-old male with PMH of invasive high-grade metastatic bladder cancer. He presented on 01/06 for SOB. Recent thoracentesis for pleural effusion. Patient received a chest tube in the emergency department and will trial parenteral nutrition for minimum of 2 days. #Pleural effusion/chylothorax Patient recently had a thoracentesis on 12/30 that drained 1400 mL of cloudy white fluid; procedure terminated due to concern for nutritional depletion/possible chylothorax CXR on 01/06 revealed increase in right pleural effusion Pulmonary consult appreciated Chest tube placed in the ED on 01/06 draining chylous fluid Bowel rest P.o. medications okay BSG q6h for now; D5W and 1/2 NSS at 75 mL/hr Trial of parenteral nutrition x 2 days + octreotide Pharmacy consult for TPN appreciated Daily chest x-ray x 3 Continuous pulse oximetry #LLE edema US Doppler of the left lower extremity revealed no DVT Suspect due to poor venous return due to recent ferrara cath strapped to left leg Thight high BUCKY hose application to LLE #Prostate cancer TURBTs x 2; last on 12/01/2024 Continue tamsulosin #Anemia Chronic; Hgb 12.4 on arrival No signs of active bleeding on clinical exam Patient reports mild hematuria when his Ferrara catheter was removed on 12/26 Continue to monitor for now #CKD BUN 27, creatinine 2.00 (baseline around 1.5) Avoid nephrotoxic agents where possible Disposition: Admit to PCU telemetry Full code TPN VTE PPx: Heparin 5000u SQ q12h History of Present Illness Chief Complaint: SOB/dyspnea, LLE edema Primary Care Provider: KIA Hanson Vernon is a 64-year-old male with PMH of invasive high-grade metastatic bladder cancer and CKD stage IIIb. He presented on 01/06 for SOB/dyspnea. Patient reports his difficulty with breathing has been ongoing for the past 10 years, but started to go downhill in September. He was hospitalized in September for acute hypoxic respiratory failure requiring ICU/intubation. Recent diagnosis of metastatic bladder cancer. Patient did have a thoracentesis a couple weeks back with Dr. Joyner, and reports that his breathing substantially increased for 2 to 3 days after this, but then subsequently returned. He normally experiences the trouble breathing when walking up steps in his house. Additionally, he does endorse orthopnea. No supplemental oxygen at baseline or CPAP at night. Patient denies any pain at this time. His main concerns are sleeping, as he has had difficulty sleeping past few nights. Patient took his regular morning medicine last night; no recent change in medications. No sick contacts. He does not use a walker or cane at baseline. No history of blood clots in his legs or lungs. Patient did have his Ferrara catheter removed on 12/26 after 3 months. He has had some dribbling and urinary incontinence since, and has been using diapers/briefs at home. Additionally, shortly after his Ferrara catheter was removed, he developed swelling in his left lower extremity x 7 to 8 days; no redness or pain. Patient is a former tobacco smoker but quit 3 years ago. He denies chewing tobacco or recent alcohol use. Patient's vitals are stable at time admission. 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 Patient denies fever, chills, night-sweats, fall, syncope, chest pain, chest palpitations, pleuritic CP, hemoptysis, vomiting, diarrhea, burning with urination, or numbness/tingling in the arms. Allergies Allergy/AdvReac Type Severity Reaction Status Date / Time No Known Allergies Allergy Verified 01/06/25 16:59 Home Medications Medication Instructions Recorded Confirmed Type phenazopyridine 200 mg tablet 200 mg PO Q8H PRN pain #10 tabs 12/01/24 01/06/25 Rx (Pyridium) oxybutynin chloride 5 mg tablet 5 mg PO UD PRN Bladder Spasms 12/30/24 01/06/25 History tamsulosin 0.4 mg capsule 0.4 mg PO HS 12/30/24 01/06/25 History bisacodyl 5 mg tablet,delayed 5 mg PO HS PRN Constipation 01/06/25 01/06/25 History release (Dulcolax (bisacodyl)) famotidine 20 mg tablet (Pepcid) 20 mg PO HS 01/06/25 01/06/25 History naproxen sodium 220 mg tablet 440 mg PO BID PRN Pain 01/06/25 01/06/25 History (Aleve) oxycodone-acetaminophen 7.5 mg-325 1 tab PO Q8H PRN Pain 01/06/25 01/06/25 History mg tablet polyethylene glycol 3350 17 17 g PO DAILY PRN Constipation 01/06/25 01/06/25 History gram/dose oral powder (Miralax) Past Med/Surg History Problem List (Updated 01/06/25 @ 18:53 by José Luis Wilson PA-C) On total parenteral nutrition (TPN) Chylothorax Leg edema, left (Acute) Breath shortness (Acute) Chronic anemia Vitamin D deficiency Stage 3b chronic kidney disease Encounter for pre-operative examination Mediastinal adenopathy Pleural effusion (Acute) Penile pain (Acute) Scrotal edema (Acute) Lung abnormality (Acute) Bladder cancer Antineutrophil cytoplasmic antibody (ANCA) positive Medical History (Updated 01/06/25 @ 18:53 by MARY MuellerC) Hx of bladder cancer dx "early" 2024, sx "at this point" Hx of pleural effusion thoracentesis 12/30/24 History of respiratory failure 09/2024 -Hypoxemic respiratory failure 2nd to aspiration of blood clot postoperatively -s/p intubation -pt returned to baseline 02 sats Hematuria hx, "not much now" Bilateral hydronephrosis Hx of aspiration pneumonitis 09/2024- resolved Antineutrophil cytoplasmic antibody (ANCA) positive -questionable- repeat ANCA antibody test 10/22/24 negative - mildly positive C ANCA antibody during 09/2024 admission - per nephrology note 10/22/24 "unlikely it is anything clinically significant as kidney function continues to improve rapidly and blood pressure has been well-controlled" Hx of acute renal failure - 09/2024- multifactorial per records- received 2 treatents of dialysis while admitted to [facility] 09/2024 via neck port (no longer in place) - s/p cysto and bilateral ureteral stent placement 10/01/24 - seen by nephro 10/22/24- stable- following repeat labs/follow up 01/02/25 COPD (chronic obstructive pulmonary disease) hx Surgical History (Updated 01/06/25 @ 16:13 by Cate Navarrete, AC) Port-A-Cath in place (01/06/25) Insertion Access Port with Fluoroscopy Right Internal Jugular Vein(Right) - Jevon Dove, DO History of transurethral resection of bladder tumor (TURBT) 10/2024, large tumor removed along with cysto/bilat. stent exchange 12/01/24, TURBT and TURP History of thoracentesis 12/30/24, [facility] Hx of cystoscopy 10/01/24 @ [facility] 11/13/24>Cystoscopy with Retrograde Pyelogram and Bilateral Stent Exchange + TURBT History of carpal tunnel release of both wrists History of vasectomy Family History Father Colorectal cancer Other Prostate cancer Social History Smoking Status: Former smoker Tobacco Type: Cigarettes Age Started Using Tobacco: 15; Age Quit Using Tobacco: 61; packs per day: 3; Second Hand Exposure: Yes; Do You Dip or Chew Tobacco: No; Tobacco Cessation Education Requested by Patient: No Hx Alcohol Use: No Hx Substance Use: Yes Last Used Substance: Days (ago) Last Used Substance Other:: "months ago" Preferred Language: Danish Communication Ability: Effective Portable Track Line Marker Required: No Beliefs That Will Affect Care: None marital status: Current Living Situation: Spouse Other Information That Helps Us Care for You: No Feels Safe at Home: Yes Safety Concerns: Feels Safe At This Time during the past year weight has: decreased > 10 lbs Assistive Devices: Glasses Review of Systems Review of Systems: See HPI above Physical Exam Physical Exam: General: no acute distress; pleasant affect; non-toxic appearing; cachectic; cooperative; SpO2 99% on RA HEENT: normocephalic, atraumatic; no scleral icterus; PERRLA; vision and hearing grossly intact Neck: supple; no lymphadenopathy; trachea midline Skin: warm, dry without signs of tenting; no cyanosis; no rashes, bruising, lesions, or erythema noted CV: chest wall NTP; chest tube in place draining pleural fluid (chylous/lymphatic drainage) into pleura-evac; RRR; S1/S2 normal; no murmurs/rubs/gallops; pulses intact and symmetric at radial, DP, and PT Lungs: no acute respiratory distress; symmetrical chest wall expansion; clear breath sounds across all lung delgado w/o adventitious sounds; no wheezing ABD: Soft, NTP; BS present; no rebound/guarding; no distention MSK: no tics or fasciculations LEs: +2 pitting edema in the left lower extremity extending from the dorsal aspect of the foot to the knee, nonerythematous, nontender to palpation; RLE is nonedematous, nontender palpation Neuro: A&Ox3; normal mood and affect; fluent speech; no focal deficits; sensation intact and symmetric in the lower extremity bilaterally Results & Data Results & Data Vital Signs (Past 12 Hours) Vital Signs Temp Pulse Resp BP Pulse Ox O2 Del Method 01/06/25 13:48 73 01/06/25 13:21 36.4 C L 90 18 137/95 99 Room Air Laboratory Results Abnormal lab results 01/06/25 Range/Units 14:14 RBC 3.79 L (4.70-6.10) M/uL Hgb 12.4 L (14.0-18.0) g/dl Hct 37.3 L (42.0-52.0) % RDW Std Deviation 54.1 H (36.4-46.3) fL RDW Coeff of Nadege 15.0 H (11.5-14.5) % Lymph # (Auto) 0.93 L (1.20-3.40) K/uL BUN 27 H (6-23) mg/dl Creatinine 2.00 H (0.6-1.4) mg/dl Glucose 102 H (70-99(Fasting)) mg/dl Alkaline Phosphatase 244 H (34-104) U/L Albumin 3.3 L (3.4-5.0) gm/dl Albumin/Globulin Ratio 0.8 L (0.9-2) Lipase 3 L (11-82) U/L Diagnostic Findings Venous Doppler Study 01/06/25 13:41 LEFT LOWER EXTREMITY VENOUS DOPPLER HISTORY: Acute pain and swelling of the left lower leg lle swelling COMPARISON STUDY: None. FINDINGS: Subcutaneous edema. There is normal compressibility, flow, and augmentation within the left lower extremity deep venous system. IMPRESSION: No DVT within the left lower extremity. ACT 112: Negative or not required by law. Electronically signed by: Tony Hansen M.D. 01/06/2025 2:50 PM ECG Additional Comments: ECG revealed NSR at 69 bpm; QTc 420 Code Status & VTE Plan Code Status Full code VTE Prophylaxis Plan VTE Prophylaxis will be ordered: Yes Supervising Physician Co-Signing Physician Notes I personally saw and examined the patient. I independently reviewed the labs, EKG, imaging, problem list, medication list, past medical history and family history. I verified all chowdary points and agree with José Luis Wilson PA-C with the following exceptions and/or additions: 64 year old male presents to the ER with shortness of breath and left lower extremity swelling O/E HS RRR, Chest no wheezing, chest tube in place A/P Chylothorax - management per pulmonology with chest tube insertion, NPO, TPN, IV fluids, octreotide Left leg swelling - due to having ferrara catheter strapped to this leg, no DVT, Management with BUCKY bruner PG Care Time/CCT Total # of Minutes Spent Total Time Spent with Patient: Total time spent is greater than 50% in coordination of care (as documented) at patient's floor/unit and/or counseling patient: Coding [place] [address] INT INP/OBS CARE 3/75MIN Patient Type Established Medical Decision Making High Complexity Diagnoses 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
[2025-01-06] MEDS: LIDOCAINE 2% LOCAL 50 ML VIAL ONE (17:29)
[2025-01-06] MEDS ORDERED: TPN/PPN CONSULT PHARMACY STA (17:51)
--- NOTE | 2025-01-06 17:56 | Procedure Note ---
Procedure Note Date of Service January 06, 2025 Procedure: Pigtail chest tube insertion Servomechanism Assembler: Dr. Eric Coronel Indication: Right-sided chylothorax Consent: Signed by patient and verified with timeout prior to procedure Anesthesia: 1% lidocaine without epinephrine local Procedure: Consent was verified and timeout performed. Appropriate imaging studies were reviewed prior to the procedure. Patient was placed in a seated position. Appropriate site above the diaphragm on the right midaxillary line fourth intercostal space for chest tube insertion was selected. The skin was prepped and draped in normal sterile fashion. Lidocaine was used for local analgesia. Milky fluid was aspirated via the finder needle. A small skin main was made with the scalpel and the catheter over the needle apparatus was advanced over the rib into the pleural space. With the help of guidewire and Seldinger technique, 14 Tunisian pigtail catheter was inserted and connected to Pleur-evac. No air leak appreciated after that. Chest x-ray to follow Fluid was sent for labs, culture and cytology. The patient tolerated the procedure without obvious complication Complications: None Blood loss: Less than 1 cc. [facility] [place] Procedure Codes (Charges) Pulmonary/Thoracic Procedure 1: Pulmonary and Thoracic: 90508 Tube thoracostomy Tubes, Drains, and Vasc Access Procedure 1: Tubes, Drains, and Vasc Access: [id number] Ultrasound Guidance For Vascular Coding CPT Codes Pulmonary/Thoracic - Pulmonary and Thoracic: 03645 Tube thoracostomy ([id number]) Tubes, Drains, and Vasc Access - Tubes, Drains, and Vasc Access: [id number] Ul trasound Guidance For Vascular ([id number]) Additional Codes Date of Service ([email or web address])
[2025-01-06] MEDS ORDERED: OCTREOTIDE ACETATE 100 MCG in SYRINGE 0 ML IV SCH (18:00)
--- NOTE | 2025-01-06 18:19 | XRay Report ---
INDICATION: Chest tube placement TECHNIQUE: Frontal radiograph of the chest. COMPARISON: Radiograph from 12/30/2024. FINDINGS/IMPRESSION: Interval placement of right-sided chest tube. Right pleural/parenchymal opacities again noted. Right pleural effusion again noted, somewhat decreased as compared to prior. Left lung relatively clear. No pneumothorax. Right-sided chest port catheter tip in the superior vena cava. Electronically signed by Sharif Scherer 01-06-2025 6:15 PM
[2025-01-06] MEDS ORDERED: TPN/PPN CONSULT PHARMACY PRN (18:20)
[2025-01-06] MEDS: OCTREOTIDE ACETATE 100 MCG/ML VIAL SQ STA (18:39)
[2025-01-06] MEDS: D5W AND 1/2NSS 1,000 ML IV SCH (19:12)
[2025-01-06 19:22] LABS: Appearance Pleural Fluid Turbid; Color Pleural Fluid Other; RBC Pleural Fluid Auto 6000 /uL; Source Pleural Fluid Right Lung; WBC Pleural Fluid Auto 1696 /uL
[2025-01-06] MEDS ORDERED: oxyCODONE HCL IR 5 MG TAB (IMMEDIATE RELEASE) PO PRN (20:49)
[2025-01-06] MEDS ORDERED: oxyBUTYnin chloride 5 MG TAB PO PRN (20:49)
[2025-01-06 20:52] LABS: Albumin Level 2.9 gm/dl (3.4-5.0); Bilirubin,Total 0.3 mg/dl (0.2-1.0)
[2025-01-06 20:58] LABS: Total Protein 6.4 gm/dl (6.0-8.3)
[2025-01-06] MEDS: MELATONIN 3 MG TAB PO SCH (22:23)
[2025-01-06] MEDS: TAMSULOSIN HCL 0.4 MG CAP PO SCH (22:24)
[2025-01-06] MEDS: HEPARIN SOD 5,000 UNIT/0.5 ML VIAL SQ SCH (22:24)
[2025-01-06] MEDS: FAMOTIDINE 20 MG TAB PO SCH (22:25)
[2025-01-07] MEDS: ZOLPIDEM TARTRATE 5 MG TAB PO PRN (01:29)
[2025-01-07] MEDS: OCTREOTIDE ACETATE 100 MCG/ML VIAL SQ SCH (05:45)
[2025-01-07 07:09] LABS: Calcium 8.8 mg/dl (8.6-10.3); Potassium 4.8 mmol/L (3.5-5.1)
[2025-01-07 07:15] LABS: BUN Creatinine Ratio 15.6 (10-20); Creatinine Clr Calc Pharmacy 42.1 ml/min; Phosphorus 4.5 mg/dl (2.5-4.9)
--- NOTE | 2025-01-07 08:01 | XRay Report ---
EXAM: XR chest 1V portable CLINICAL HISTORY: f/u TECHNIQUE: An X-ray image of the chest is obtained in 1 AP projection. COMPARISON: study 01/06/2025. FINDINGS: Right-sided chest tube (pigtail drainage tube) is now more lateral in position, with its tip at the right costophrenic recess. Right-sided chest port catheter tip in the superior vena cava. Pulmonary Parenchyma: Right lower lung zone parenchymal opacities again noted. Increase in the right lower lung zone and now shows small infiltrates. Possible pneumonitis. Right pleural effusion again noted, decreased as compared to prior. Right lung upper zone fibrotic/ parenchymal bands seen. Left lung relatively clear. No pneumothorax. Heart and Mediastinum: Heart size and shape are normal. No mediastinal widening or masses. No hilar or mediastinal lymphadenopathy. Bony Thorax: Bony thorax appears intact without fractures or deformities. Soft Tissues: Soft tissues overlying the chest wall are unremarkable. IMPRESSION: 1. Right-sided chest tube (pigtail drainage tube) is now more lateral in position, with its tip at the right costophrenic recess. 2. Right-sided chest port catheter tip in the superior vena cava (unchanged). 3. Right parenchymal opacities again noted. Increase in the right lower lung zone and now shows small infiltrates. Possible pneumonitis. Please correlate clinically. 4. Right pleural effusion again noted, decreased as compared to prior. 5. Right lung upper zone fibrotic/ parenchymal bands seen (unchanged) Electronically signed by Pepito Melo 01-07-2025 08:01 AM
--- NOTE | 2025-01-07 09:47 | Electrocardiogram Report ---
Test Reason : Blood Pressure : */* mmHG Vent. Rate : 69 BPM Atrial Rate : 69 BPM P-R Int : 176 ms QRS Dur : 72 ms QT Int : 392 ms P-R-T Axes : 40 2 49 degrees QTcB Int : 420 ms Normal sinus rhythm Low voltage QRS Cannot rule out Anteroseptal infarct (cited on or before 29-Sep-2024) Abnormal ECG When compared with ECG of 13-Nov-2024 11:05, Questionable change in initial forces of Septal leads Confirmed by Juan Rainey ([id number]) on 01/07/2025 9:46:41 AM Referred By: Confirmed By: Juan Rainey
--- NOTE | 2025-01-07 10:17 | Pulmonology Progress Note ---
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 Dietary exclusion of longchain triglycerides is encouraged Oral vitamins should be provided If the drainage still significant which is >1L day then surgery should be considered Once the pleural drainage decreases medium-chain triglycerides carb introduced -- Metastatic invasive bladder cancer S/p right-sided port placement Plan is to have chemotherapy in the near future I did discuss the case with Dr. Gonzalez, unfortunately chemotherapy cannot be started in hospital Plan: I do think the patient's reason for cardiothoracic is most likely underlying malignancy affecting the thoracic duct Pleurx catheter would not be a good option for him as chylothorax is very high risks to get infected. Recommend Low-fat (less than 10 g/day, high-protein. Dietary exclusion of longchain triglycerides is encouraged Chest x-ray from today shows significant improvement in the right-sided pleural effusion At bedside there was no air leak. The fluid is getting more clear desi-colored now The level was at 370. 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 Continue with trial of parenteral nutrition for 2 days along with octreotide to see if it resolves on its own Please note the above document was generated using voice recognition software. It may contain grammatical, syntax or spelling errors.Any formal questions or concerns about the content, text or information contained within the body of this dictation should be directly addressed to the provider for clarification. Admission and Anticipated Discharge Date Admission Date: January 06, 2025 Subjective Patient seen and examined at bedside. No acute distress, no adverse events overnight Patient was saturating well on room air He had mild discomfort at the site of the chest tube but overall his breathing is improved Denies any headache, no nausea or vomiting Review of Systems 2 Review of Systems: All systems reviewed & are unremarkable except as noted in Subjective Physical Exam 2 Physical Exam: Constitutional: No acute distress, frail-appearing HEENT: EOMI, PERRLA Respiratory system: Decreased air entry on the right side, no wheeze, rhonchi, positive crackles bilaterally CVS: S1-S2 positive, no murmurs or gallops Abdomen: Soft, nontender, nondistended, positive bowel sounds x4 Extremities: +2 pulses bilaterally radialis/ dorsalis pedis, no cyanosis, +2 pitting edema left lower extremity Neuro: Awake alert oriented x3 Psych: Normal mood and affect G/U: No Cramer Skin: no rashes, warm and dry Lymphatic: no cervical or axillary lymphadenopathy Results & Data Results & Data Vital Signs (Past 12 Hours) Vital Signs Temp Pulse Resp BP Pulse Ox O2 Del Method 01/07/25 07:45 36.5 C 70 20 129/84 96 Room Air 01/07/25 03:10 36.5 C 78 16 122/75 97 Room Air 01/06/25 23:16 36.5 C 73 18 128/80 96 Room Air 01/06/25 22:56 Room Air Laboratory Results 01/06/25 14:14 01/07/25 06:09 PG Care Time/CCT Total # of Minutes Spent Total Time Spent with Patient: Total time spent is greater than 50% in coordination of care (as documented) at patient's floor/unit and/or counseling patient: Coding Level of Care Code 46153 SUB INP/OBS CARE 3/50MIN Diagnoses 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
[2025-01-07 12:06] LABS: Lymphocytes, Fluid 88 %; Mono,Macrophage,Mesothelial 8 %; Neutrophils, Fluid 4 %
[2025-01-07] MEDS ORDERED: DEXTROSE 10% 1,000 ML IV PRN ×2 (13:32→16:00)
--- NOTE | 2025-01-07 14:21 | Pharmacy Report ---
Pharmacy Initial PN Consult Nt - Date of Service January 07, 2025 - Scope Pharmacy has been consulted on this date to manage parenteral nutrition orders and order appropriate labs. As part of the Nutrition Support Team Guidelines, pharmacy will work in conjunction with dietary when determining the patients caloric needs. - Subjective * The patient is a 64 year old Male admitted on 01/06/25 for CHYLOTHORAX. * Patient is to receive parenteral nutrition for pleural effusion with chylothorax. S/p chest tube placement 01/06. * Pertinent PMHx: metastatic invasive bladder cancer, CKD - Objective Vascular Access: * Patient currently has a central line (port) Height & Weight (Last Documented) Height 6 ft 2 in Weight 74.1 kg Diet Order(s) 01/06/25 20:49 NPO Intake & Ouput (24hrs) 01/06/25 01/07/25 01/08/25 06:59 06:59 06:59 Intake Total 0 / 0 1000 / 1000 Output Total 1850 / 1850 Balance -1850 / -1850 1000 / 1000 Selected Laboratory Results 01/06/25 01/06/25 01/07/25 14:14 19:59 06:09 Sodium 137 135 L Potassium 4.8 4.8 Chloride 102 106 Carbon Dioxide 27 25 Anion Gap 8 4 BUN 27 H 29 H Creatinine 2.00 H 1.86 H BUN/Creatinine Ratio 13.5 15.6 Glucose 102 H 137 H Calcium 9.6 8.8 Phosphorus 4.5 Magnesium 2.0 Total Bilirubin 0.3 0.3 AST 15 ALT 11 Alkaline Phosphatase [address] - Initial Nutrition Assessment Start: 01/07/25 12:28 Freq: Status: Active Protocol: Document 01/07/25 12:28 WN (Rec: 01/07/25 12:41 WN [id number]) - Assessment & Plan Assessment: * Appreciate dietitians recommendations for macronutrients. Of note, parenteral lipids are not contraindicated in the setting of chylothorax as they do not pass through the lymph system. Plan: * For Day #1 of TPN administration (~70% of goal AA, dextrose), the following will be ordered: * Macronutrients: * Amino Acids: 58 grams/day * Dextrose: 101 grams/day * Lipids: 50 grams/day * Micronutrients: * TPN electrolytes: - mL/day - Contains 35 mEq Na, 20 mEq K, 4.5 mEq Ca, 5 mEq Mg, 35 mEq Cl, 29.5 mEq Acetate per 20 mL * Sodium phosphate: - mMol/day * Sodium chloride: 50 mEq/day * Sodium acetate: 25 mEq/day * Potassium phosphate: 15 mMol/day * Potassium chloride: - mEq/day * Potassium acetate: - mEq/day * Magnesium sulfate: 8 mEq/day * Calcium gluconate: 10 mEq/day * Multivitamins: 10 mL/day * Trace elements: 1 mL/day * Thiamine: 100 mg/day * Folic Acid: - mg/day * Total volume of 793 mL will be infused over 24 hours and will provide 1073 kcal/day * Labs will be ordered per PN protocol. * Pharmacy will follow and adjust PN orders on a daily basis. Thank you!
--- NOTE | 2025-01-07 19:34 | XRay Report ---
EXAM: Radiograph of the Chest 1 View INDICATION: Line placement TECHNIQUE: Frontal view of the chest. Image obtained at 7:05 PM COMPARISON: Image approximately 1 hour earlier FINDINGS: Lungs and pleural spaces: Stable small right pleural effusion. No pneumothorax. New groundglass infiltrate in the right lung and stable dense scarring in the right upper lobe and asymmetric mild right pulmonary edema. Heart: Shape and configuration within normal limits allowing for technique. Mediastinum: Normal contour. Bones/joints: No fracture, erosion or dislocation. Soft tissues: No abnormality noted. No radiopaque foreign body noted. Tubes, lines and devices: Right basilar pigtail pleural drain projects more laterally and may have retracted. Distal right peripherally inserted central catheter (PICC) tip in the distal superior vena cava. Right internal jugular port catheter tip terminates in the mid SVC. Upper abdomen: No abnormality noted. IMPRESSION: 1. New groundglass infiltrate right lung base concerning for developing pneumonia. 2. Right basilar pigtail pleural drain projects more laterally and may have retracted. Correlate clinically. 3. Lines and tubes as above. ACT 112: N/A Electronically signed by Kim Jade 01-07-2025 7:33 PM
[2025-01-07] MEDS: CLINOLIPID 20% IV FAT EMULSION 250 ML IV SCH (19:46)
--- NOTE | 2025-01-07 23:28 | Hospitalist Progress Note ---
Date of Service January 07, 2025 Assessment & Plan (1) Chylothorax: (2) Leg edema, left: (3) On total parenteral nutrition (TPN): Plan [place] is a 64-year-old male with PMH of invasive high-grade metastatic bladder cancer. He presented on 01/06 for SOB. Recent thoracentesis for pleural effusion. Patient received a chest tube in the emergency department and will trial parenteral nutrition for minimum of 2 days. #Pleural effusion/chylothorax Patient recently had a thoracentesis on 12/30 that drained 1400 mL of cloudy white fluid; procedure terminated due to concern for nutritional depletion/possible chylothorax CXR on 01/07 revealed decrease in right pleural effusion Pulmonary consult appreciated Chest tube placed in the ED on 01/06 draining less chylous fluid Bowel rest P.o. medications okay Trial of parenteral nutrition x 2 days + octreotide Pharmacy consult for TPN appreciated Daily chest x-ray x 3 Continuous pulse oximetry TPN ordered/ required PICC line per oncologist did not want port used for parenteral nutrition. #LLE edema US Doppler of the left lower extremity revealed no DVT Suspect due to poor venous return due to recent ferrara cath strapped to left leg Thight high BUCKY hose application to LLE #Prostate cancer/Secondary malignant neoplasm thoracic vertebra TURBTs x 2; last on 12/01/2024 Continue tamsulosin chemotherapy to be completed as an outpatient #Anemia Chronic; Hgb 12.4 on arrival No signs of active bleeding on clinical exam Patient reports mild hematuria when his Ferrara catheter was removed on 12/26 Continue to monitor for now #CKD BUN 27, creatinine 2.00 (baseline around 1.5) Avoid nephrotoxic agents where possible * Disposition: Admit to PCU telemetry Full code TPN VTE PPx: Heparin 5000u SQ q12h Admission and Anticipated Discharge Date Admission Date: January 06, 2025 Subjective Patient reports no new symptoms. Physical Exam Physical Exam: Constitutional: No acute distress, frail-appearing HEENT: EOMI, PERRLA Respiratory system: Decreased air entry on the right side, no wheeze, rhonchi, positive crackles bilaterally CVS: S1-S2 positive, no murmurs or gallops Abdomen: Soft, nontender, nondistended, positive bowel sounds x4 Extremities: +2 pulses bilaterally radialis/ dorsalis pedis, no cyanosis, +2 pitting edema left lower extremity Neuro: Awake alert oriented x3 Psych: Normal mood and affect Results & Data Results & Data Vital Signs (Past 12 Hours) Vital Signs Temp Pulse Pulse Resp BP Pulse Ox O2 Del Method 01/07/25 22:37 36.5 C 79 18 138/83 96 Room Air 01/07/25 19:13 36.7 C 70 18 144/82 H 95 Room Air 01/07/25 16:54 Room Air 01/07/25 15:48 69 01/07/25 15:47 67 01/07/25 15:09 36.8 C 65 18 145/83 H 96 Room Air 01/07/25 15:08 36.8 C 65 19 145/83 H 96 Room Air 01/07/25 12:23 36.6 C 58 L 19 128/73 92 Room Air PG Care Time/CCT Total # of Minutes Spent Total Time Spent with Patient: Total time spent is greater than 50% in coordination of care (as documented) at patient's floor/unit and/or counseling patient: Coding Level of Care Code 86459 SUB INP/OBS CARE 3/50MIN Diagnoses 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
[2025-01-08] MEDS: hydrOXYzine HCl 25 MG TAB PO STA (01:54)
[2025-01-08] MEDS: STOP CLINOLIPID SCH (01:55)
[2025-01-08] MEDS: ACETAMINOPHEN 325 MG TAB PO PRN (01:57)
--- NOTE | 2025-01-08 07:06 | Pulmonology Progress Note ---
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 Dietary exclusion of longchain triglycerides is encouraged Oral vitamins should be provided If the drainage still significant which is >1L day then surgery should be considered Once the pleural drainage decreases medium-chain triglycerides carb introduced -- Metastatic invasive bladder cancer S/p right-sided port placement Plan is to have chemotherapy in the near future I did discuss the case with Dr. Gonzalez, unfortunately chemotherapy cannot be started in hospital Plan: I do think the patient's reason for cardiothoracic is most likely underlying malignancy affecting the thoracic duct Pleurx catheter would not be a good option for him as chylothorax is very high risks to get infected. Recommend Low-fat (less than 10 g/day, high-protein. Dietary exclusion of longchain triglycerides is encouraged Chest x-ray from today does not show any signs of pleural effusion, minimal right lower lobe haziness appreciated likely representing atelectasis At bedside there was no air leak. The fluid is getting more clear desi-colored now The level was at 850 today, output in the last 24 hours from the chest tube is 480 mL Continue with parenteral nutrition for 2 days along with octreotide to see if it resolves on its own Today the patient seem to be a little bit down. He was not sure whether he would like to pursue chemotherapy now and was talking about '' horse medicine'' which is probably ivermectin I think. I educated him that chemotherapy which is being offered by the oncologist is proven to be beneficial. Everything else will be experimental and the chemotherapy offered by oncology which should still be first-line. If he has any questions then I would ask him to get in touch with his oncologist. Please note the above document was generated using voice recognition software. It may contain grammatical, syntax or spelling errors.Any formal questions or concerns about the content, text or information contained within the body of this dictation should be directly addressed to the provider for clarification. Admission and Anticipated Discharge Date Admission Date: January 06, 2025 Subjective Patient seen and examined at bedside. No acute distress, no adverse events overnight Mild discomfort at the site of the chest tube He was saturating well on room air Denied any nausea or vomiting He has been getting TPN. No dysuria or diarrhea Review of Systems 2 Review of Systems: All systems reviewed & are unremarkable except as noted in Subjective Physical Exam 2 Physical Exam: Constitutional: No acute distress, frail-appearing HEENT: EOMI, PERRLA Respiratory system: Decreased air entry on the right side, no wheeze, no rhonchi, positive crackles bilaterally CVS: S1-S2 positive, no murmurs or gallops Abdomen: Soft, nontender, nondistended, positive bowel sounds x4 Extremities: +2 pulses bilaterally radialis/ dorsalis pedis, no cyanosis, +2 pitting edema left lower extremity Neuro: Awake alert oriented x3 Psych: Normal mood and affect G/U: No Cramer Skin: no rashes, warm and dry Lymphatic: no cervical or axillary lymphadenopathy Results & Data Results & Data Vital Signs (Past 12 Hours) Vital Signs Temp Pulse Pulse Resp BP Pulse Ox O2 Del Method 01/08/25 03:20 36.5 C 72 18 129/82 96 Room Air 01/07/25 23:27 Room Air 01/07/25 22:37 36.5 C 79 18 138/83 96 Room Air 01/07/25 21:49 81 01/07/25 19:13 36.7 C 70 18 144/82 H 95 Room Air Laboratory Results 01/06/25 14:14 01/07/25 06:09 PG Care Time/CCT Total # of Minutes Spent Total Time Spent with Patient: Total time spent is greater than 50% in coordination of care (as documented) at patient's floor/unit and/or counseling patient: Coding Level of Care Code 59786 SUB INP/OBS CARE 3/50MIN Diagnoses 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
--- NOTE | 2025-01-08 07:52 | XRay Report ---
EXAM: XR chest 1V portable CLINICAL HISTORY: f/u TECHNIQUE: An X-ray image of the chest is obtained in 1 AP projection. COMPARISON: 01/07/2025. FINDINGS: Tubes and lines: Right-sided chest tube (pigtail drainage tube) is seen with its tip at the right costophrenic recess. Right peripherally inserted central catheter (PICC) tip in the distal superior vena cava adjacent to the cavo-atrial junction. (new finding) Right central venous port catheter tip terminates in the mid SVC. Pulmonary Parenchyma: Stable small right pleural effusion. No pneumothorax. Groundglass opacities in the right lung and stable dense scarring in the right upper lobe. Heart and Mediastinum: Heart size and shape are normal. No mediastinal widening or masses. Bony Thorax: The bony thorax appears intact without fractures or deformities. Soft Tissues: Soft tissues overlying the chest wall are unremarkable. IMPRESSION: 1. Newly appreciated right-sided PICC, its tip adjacent to the cavoatrial junction. 2. Right parenchymal opacities again noted. Stable 3. Right pleural effusion was again noted. Stable 4. No other significant interval change. Electronically signed by Pepito Melo 01-08-2025 07:47 AM
[2025-01-08 08:39] LABS: BUN Creatinine Ratio 15.1 (10-20); Calcium 8.5 mg/dl (8.6-10.3); Creatinine Clr Calc Pharmacy 43.4 ml/min; Phosphorus 4.2 mg/dl (2.5-4.9); Potassium 4.4 mmol/L (3.5-5.1)
[2025-01-08] MEDS: oxyCODONE HCL IR 5 MG TAB (IMMEDIATE RELEASE) PO PRN (13:25)
[2025-01-08] MEDS: CLINOLIPID 20% IV FAT EMULSION 250 ML IV SCH (15:45)
--- NOTE | 2025-01-08 16:12 | Hospitalist Progress Note ---
Date of Service January 08, 2025 Assessment & Plan (1) Chylothorax: (2) Leg edema, left: (3) On total parenteral nutrition (TPN): Plan [place] is a 64-year-old male with PMH of invasive high-grade metastatic bladder cancer. He presented on 01/06 for SOB. Recent thoracentesis for pleural effusion. Patient received a chest tube in the emergency department and will trial parenteral nutrition for minimum of 2 days. #Pleural effusion/chylothorax Patient recently had a thoracentesis on 12/30 that drained 1400 mL of cloudy white fluid; procedure terminated due to concern for nutritional depletion/possible chylothorax CXR on 01/07 revealed decrease in right pleural effusion Pulmonary consult appreciated Chest tube placed in the ED on 01/06 draining less chylous fluid Bowel rest P.o. medications okay Trial of parenteral nutrition x 2 days + octreotide Pharmacy consult for TPN appreciated Daily chest x-ray x 3 Continuous pulse oximetry TPN ordered/ required PICC line per oncologist did not want port used for parenteral nutrition. #LLE edema US Doppler of the left lower extremity revealed no DVT Suspect due to poor venous return due to recent ferrara cath strapped to left leg Thigh high BUCKY hose application to LLE #Prostate cancer/Secondary malignant neoplasm thoracic vertebra TURBTs x 2; last on 12/01/2024 Continue tamsulosin chemotherapy to be completed as an outpatient #Anemia Chronic; Hgb 12.4 on arrival No signs of active bleeding on clinical exam Patient reports mild hematuria when his Ferrara catheter was removed on 12/26 Continue to monitor for now #MICHELE / CKD Creatinine 1.8(baseline around 1.5) Avoid nephrotoxic agents where possible * Disposition: Admit to PCU telemetry Full code TPN VTE PPx: Heparin 5000u SQ q12h Admission and Anticipated Discharge Date Admission Date: January 06, 2025 Subjective Patient seen and examined at bedside. No acute distress, no adverse events overnight denies any pain complaints NPO / On TPN Says planning on sitting in chair Physical Exam Physical Exam: Constitutional: No acute distress, frail-appearing HEENT: EOMI, PERRLA Respiratory system: Decreased air entry on the right side, no wheeze, rhonchi, positive crackles bilaterally CVS: S1-S2 positive, no murmurs or gallops Abdomen: Soft, nontender, nondistended, positive bowel sounds x4 Extremities: +2 pulses bilaterally radialis/ dorsalis pedis, no cyanosis, +2 pitting edema left lower extremity Neuro: Awake alert oriented x3 Psych: Normal mood and affect Results & Data Results & Data Vital Signs (Past 12 Hours) Vital Signs Temp Pulse Pulse Resp BP Pulse Ox O2 Del Method 01/08/25 15:18 67 01/08/25 14:51 36.4 C L 63 16 146/83 H 95 Room Air 01/08/25 11:11 36.3 C L 67 18 129/80 95 Room Air 01/08/25 10:10 Room Air 01/08/25 08:29 75 01/08/25 07:00 36.4 C L 69 18 130/82 95 Room Air PG Care Time/CCT Total # of Minutes Spent Total Time Spent with Patient: Total time spent is greater than 50% in coordination of care (as documented) at patient's floor/unit and/or counseling patient: Coding Level of Care Code 01475 SUB INP/OBS CARE 2/35MIN Diagnoses 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
[2025-01-08] MEDS: STOP CLINOLIPID ONE (22:25)
[2025-01-09 06:50] LABS: Hematocrit (blood only) 37.3 % (42.0-52.0); Hemoglobin 12.2 g/dl (14.0-18.0); Mean Corpuscular Hemoglobin 32.8 pg (25.0-34.0); Mean Corpuscular Hgb Conc 32.7 g/dL (32.0-36.0); Mean Corpuscular Volume 100.3 fL (80.0-100.0); Mean Platelet Volume 9.9 fL (9.4-12.4); Platelet Count 314 K/uL (130-400); RDW Coefficient of Variation 14.7 % (11.5-14.5); RDW Standard Deviation 54.6 fL (36.4-46.3); Red Blood Count 3.72 M/uL (4.70-6.10); White Blood Count 6.22 K/ul (4.8-10.8)
[2025-01-09 07:04] LABS: BUN Creatinine Ratio 19.4 (10-20); Calcium 8.6 mg/dl (8.6-10.3); Creatinine Clr Calc Pharmacy 45.6 ml/min; Magnesium 2.1 mg/dl (1.7-2.4); Phosphorus 4.5 mg/dl (2.5-4.9); Potassium 4.4 mmol/L (3.5-5.1)
--- NOTE | 2025-01-09 07:38 | XRay Report ---
EXAM: XR chest 1V portable CLINICAL HISTORY: Follow-up. TECHNIQUE: An X-ray image of the chest is obtained in 1 AP projection COMPARISON: Prior 01/08/2025. FINDINGS: Tubes and lines: The right-sided chest tube (pigtail drainage tube) is seen with its tip at the right costophrenic recess. Stable Right peripherally inserted central catheter (PICC) tip in the distal superior vena cava adjacent to the cavo-atrial junction.Stable The right central venous port catheter tip terminates in the mid SVC. Stable. Pulmonary Parenchyma: Right lower lung zone parenchymal opacities again noted. Stable small right pleural effusion. No pneumothorax. Right lung upper zone fibrotic/ parenchymal bands seen.Stable Heart and Mediastinum: Heart size and shape are normal. No mediastinal widening or masses. Bony Thorax: The bony thorax appears intact without fractures or deformities. Soft Tissues: Soft tissues overlying the chest wall are unremarkable. IMPRESSION: 1. Stable appearance of the previously mentioned tubes and lines. 2. Stable right lower parenchymal opacities. 3. Minimal right pleural effusion. Stable 4. No other significant interval change Electronically signed by Pepito Mleo 01-09-2025 07:38 AM
--- NOTE | 2025-01-09 08:04 | Pulmonology Progress Note ---
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 Dietary exclusion of long-chain triglycerides is encouraged Oral vitamins should be provided If the drainage still significant which is >1L day then surgery should be considered Once the pleural drainage decreases medium-chain triglycerides carb introduced -- Metastatic invasive bladder cancer S/p right-sided port placement Plan is to have chemotherapy in the near future I did discuss the case with Dr. Gonzalez, unfortunately chemotherapy cannot be started in hospital 01/08/2025:'' He was not sure whether he would like to pursue chemotherapy now and was talking about '' horse medicine'' which is probably ivermectin I think. I educated him that chemotherapy which is being offered by the oncologist is proven to be beneficial. Everything else will be experimental and the chemotherapy offered by oncology which should still be first-line. If he has any questions then I would ask him to get in touch with his oncologist.'' Plan: I do think the patient's reason for cardiothoracic is most likely underlying malignancy affecting the thoracic duct Pleurx catheter would not be a good option for him as chylothorax is very high risks to get infected. Recommend Low-fat (less than 10 g/day), high-protein. Dietary exclusion of long- chain triglycerides is encouraged Chest x-ray from today shows pigtail catheter in place, no clear pleural effusion on the right side. No air-leak in the Pleur-evac The level was at 1500 today, output in the last 24 hours from the chest tube is 650 mL. I will stop the parenteral nutrition and start enteral today. Continue with octreotide Continue with chest tube today. I will give a dose of Lasix as there is now swelling event in the right lower extremity He still draining significant amount of fluid. I think part of the fluid is also coming from underlying malignancy. Ultimately we will have to take the chest tube out which will be most likely tomorrow. I did educate him that he will most likely end up with significant fluid on the right side in the near future and if that happens and his options will again will be thoracentesis versus putting a Pleurx catheter Pleurx catheter would be a palliative approach. When he is more inclined to his Pleurx catheter in future if need be Case was discussed with RN, tailor garment fitter as well as pharmacy Please note the above document was generated using voice recognition software. It may contain grammatical, syntax or spelling errors.Any formal questions or concerns about the content, text or information contained within the body of this dictation should be directly addressed to the provider for clarification. Admission and Anticipated Discharge Date Admission Date: January 06, 2025 Subjective Patient seen and examined at bedside. No acute distress, no adverse events overnight Mild discomfort at the site of the chest tube He has been getting TPN No nausea or vomiting Denied any headache. No blurry vision Review of Systems 2 Review of Systems: All systems reviewed & are unremarkable except as noted in Subjective Physical Exam 2 Physical Exam: Constitutional: No acute distress, frail-appearing HEENT: EOMI, PERRLA Respiratory system: Decreased air entry on the right side, no wheeze, no rhonchi, positive crackles bilaterally CVS: S1-S2 positive, no murmurs or gallops Abdomen: Soft, nontender, nondistended, positive bowel sounds x4 Extremities: +2 pulses bilaterally radialis/ dorsalis pedis, no cyanosis, +2 pitting edema left lower extremity, +1 right lower extremity Neuro: Awake alert oriented x3 Psych: Normal mood and affect G/U: No Cramer Skin: no rashes, warm and dry Lymphatic: no cervical or axillary lymphadenopathy Results & Data Results & Data Vital Signs (Past 12 Hours) Vital Signs Temp Pulse Pulse Resp BP Pulse Ox O2 Del Method 01/09/25 02:54 36.3 C L 67 18 145/90 H 96 Room Air 01/09/25 01:30 67 01/08/25 23:33 36.7 C 70 18 140/82 94 Room Air 01/08/25 21:00 Room Air Laboratory Results 01/09/25 05:28 01/09/25 05:28 PG Care Time/CCT Total # of Minutes Spent Total Time Spent with Patient: Total time spent is greater than 50% in coordination of care (as documented) at patient's floor/unit and/or counseling patient: Coding Level of Care Code 85118 SUB INP/OBS CARE 350MIN Diagnoses 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
[2025-01-09] MEDS: FUROSEMIDE INJ 20 MG/2 ML VIAL IV ONE (09:48)
[2025-01-09 13:08] LABS: Appearance Urine Cloudy (Clear); Bacteria Urine Automated None Seen (None Seen); Bilirubin Urine Negative (Negative); Blood Urine 3+ (Negative); Cast Urine Automated 0-2 /lpf (0-2); Color Urine Yellow; Epithelial Cell Urine Auto 0-2 /hpf (0-2); Glucose Urine UA Negative (Negative); Ketones Urine Negative (Negative); Leukocyte Esterase Urine 3+ (Negative); Nitrite Urine Negative (Negative); Protein Urine Negative (Negative); RBC Urine Automated >20 /hpf (0-2); Specific Gravity Urine 1.011 (1.000-1.030); Urobilinogen Urine Negative (Negative); WBC Urine Automated >50 /hpf (0-5)
--- NOTE | 2025-01-09 16:57 | Hospitalist Progress Note ---
Date of Service January 09, 2025 Assessment & Plan (1) Chylothorax: (2) Leg edema, left: (3) On total parenteral nutrition (TPN): Plan [place] is a 64-year-old male with PMH of invasive high-grade metastatic bladder cancer. He presented on 01/06 for SOB. Recent thoracentesis for pleural effusion. Patient received a chest tube in the emergency department and will trial parenteral nutrition for minimum of 2 days. #Pleural effusion/chylothorax Patient recently had a thoracentesis on 12/30 that drained 1400 mL of cloudy white fluid; procedure terminated due to concern for nutritional depletion/possible chylothorax CXR on 01/07 revealed decrease in right pleural effusion Pulmonary consult appreciated Chest tube placed in the ED on 01/06 draining less chylous fluid Bowel rest P.o. medications okay Trial of parenteral nutrition x 2 days + octreotide Pharmacy consult for TPN appreciated Daily chest x-ray x 3 Continuous pulse oximetry TPN ordered/ required PICC line per oncologist did not want port used for parenteral nutrition. #LLE edema US Doppler of the left lower extremity revealed no DVT Suspect due to poor venous return due to recent ferrara cath strapped to left leg Thigh high BUCKY hose application to LLE #Prostate cancer/Secondary malignant neoplasm thoracic vertebra TURBTs x 2; last on 12/01/2024 Continue tamsulosin chemotherapy to be completed as an outpatient #Anemia Chronic; Hgb 12.4 on arrival No signs of active bleeding on clinical exam Patient reports mild hematuria when his Ferrara catheter was removed on 12/26 Continue to monitor for now #MICHELE / CKD Creatinine 1.8(baseline around 1.5) Avoid nephrotoxic agents where possible Dietitian amari completed clear liquid diet tonight Disposition: Admit to PCU telemetry Full code TPN VTE PPx: Heparin 5000u SQ q12h Admission and Anticipated Discharge Date Admission Date: January 06, 2025 Subjective Patient seen and examined at bedside. No acute distress, no adverse events overnight chest tube draining, no BM but has been NPO on TPN, pain controlled with oxycodone Physical Exam Physical Exam: Constitutional: No acute distress, frail-appearing HEENT: EOMI, PERRLA Respiratory system: Decreased air entry on the right side, no wheeze, rhonchi, positive crackles bilaterally CVS: S1-S2 positive, no murmurs or gallops Abdomen: Soft, nontender, nondistended, positive bowel sounds x4 Extremities: +2 pulses bilaterally radialis/ dorsalis pedis, no cyanosis, +2 pitting edema left lower extremity Neuro: Awake alert oriented x3 Psych: Normal mood and affect Results & Data Results & Data Vital Signs (Past 12 Hours) Vital Signs Temp Pulse Pulse Resp BP Pulse Ox O2 Del Method 01/09/25 14:35 79 01/09/25 12:00 36.5 C 66 16 109/70 98 Room Air 01/09/25 09:01 74 01/09/25 08:00 Room Air 01/09/25 08:00 36.5 C 74 18 126/81 97 Room Air PG Care Time/CCT Total # of Minutes Spent Total Time Spent with Patient: Total time spent is greater than 50% in coordination of care (as documented) at patient's floor/unit and/or counseling patient: Coding Level of Care Code 14365 SUB INP/OBS CARE 2/35MIN Diagnoses 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
--- NOTE | 2025-01-10 07:27 | XRay Report ---
EXAM: XR chest 1V portable CLINICAL HISTORY: f/u TECHNIQUE: An X-ray image of the chest is obtained using an AP projection. COMPARISON: 01/09/2025 XR chest FINDINGS: The right-sided chest tube (pigtail drainage tube) is seen with its tip at the right costophrenic recess. Right peripherally inserted central catheter (PICC) tip in the distal superior vena cava adjacent to the cavo-atrial junction. The right central venous port catheter tip terminates in the mid SVC. Pulmonary Parenchyma: Right lower lung zone parenchymal opacities again noted. Stable small right pleural effusion. No pneumothorax. Right lung upper zone fibrotic/ parenchymal bands seen. Heart and Mediastinum: Heart size and shape are normal. No mediastinal widening or masses. Bony Thorax: The bony thorax appears intact without fractures or deformities. Soft Tissues: Soft tissues overlying the chest wall are unremarkable. IMPRESSION: 1. The right-sided chest tube (pigtail drainage tube) with its tip at the right costophrenic recess. Stable 2. Right peripherally inserted central catheter (PICC) tip in the distal superior vena cava adjacent to the cavo-atrial junction.Stable 3. The right central venous port catheter tip terminates in the mid SVC. Stable. 4. Right lower lung zone parenchymal opacities again noted. Clinical and lab correlation is advised. 5. Unchanged small right pleural effusion. Electronically signed by Pepito Melo 01-10-2025 07:27 AM
[2025-01-10 08:00] VITALS: RESP 20
--- NOTE | 2025-01-10 10:21 | Pulmonology Progress Note ---
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 Dietary exclusion of long-chain triglycerides is encouraged Oral vitamins should be provided If the drainage still significant which is >1L day then surgery should be considered Once the pleural drainage decreases medium-chain triglycerides carb introduced -- Metastatic invasive bladder cancer S/p right-sided port placement Plan is to have chemotherapy in the near future I did discuss the case with Dr. Gonzalez, unfortunately chemotherapy cannot be started in hospital 01/08/2025:'' He was not sure whether he would like to pursue chemotherapy now and was talking about '' horse medicine'' which is probably ivermectin I think. I educated him that chemotherapy which is being offered by the oncologist is proven to be beneficial. Everything else will be experimental and the chemotherapy offered by oncology which should still be first-line. If he has any questions then I would ask him to get in touch with his oncologist.'' Plan: I do think the patient's reason for cardiothoracic is most likely underlying malignancy affecting the thoracic duct Pleurx catheter would not be a good option for him as chylothorax is very high risks to get infected. Recommend Low-fat (less than 10 g/day), high-protein. Dietary exclusion of long- chain triglycerides is encouraged Chest x-ray from today shows pigtail catheter in place, no clear pleural effusion on the right side. No air-leak in the Pleur-evac The level was at 1870 today, output in the last 24 hours from the chest tube is 370 mL. Chest tube to be removed today Will give 20 mg of p.o. Lasix I did educate him that he will most likely end up with significant fluid on the right side in the near future and if that happens and his options will again will be thoracentesis versus putting a Pleurx catheter Pleurx catheter would be a palliative approach. He is more inclined to his Pleurx catheter in future if need be He has seen another provider as an outpatient. He would like the Pleurx catheter to be placed by me, will tentatively put him on the schedule for January 21, 2025. If he gets shortness of breath before that that he can come to the ER and it could be done by the on-call physician as well Case was discussed with RN Please note the above document was generated using voice recognition software. It may contain grammatical, syntax or spelling errors.Any formal questions or concerns about the content, text or information contained within the body of this dictation should be directly addressed to the provider for clarification. Admission and Anticipated Discharge Date Admission Date: January 06, 2025 Subjective Patient seen and examined at bedside. No acute distress, no adverse events overnight Denies any chest pain, no dizziness, no palpitation, no diaphoresis No chest discomfort No shortness of breath Review of Systems 2 Review of Systems: All systems reviewed & are unremarkable except as noted in Subjective Physical Exam 2 Physical Exam: Constitutional: No acute distress, frail-appearing HEENT: EOMI, PERRLA Respiratory system: Decreased air entry on the right side, no wheeze, no rhonchi, positive crackles bilaterally CVS: S1-S2 positive, no murmurs or gallops Abdomen: Soft, nontender, nondistended, positive bowel sounds x4 Extremities: +2 pulses bilaterally radialis/ dorsalis pedis, no cyanosis, +2 pitting edema left lower extremity, +1 right lower extremity Neuro: Awake alert oriented x3 Psych: Normal mood and affect G/U: No Cramer Skin: no rashes, warm and dry Lymphatic: no cervical or axillary lymphadenopathy Results & Data Results & Data Vital Signs (Past 12 Hours) Vital Signs Temp Pulse Pulse Resp BP Pulse Ox O2 Del Method 01/10/25 09:26 Room Air 01/10/25 07:59 36.5 C 72 20 130/72 94 Room Air 01/10/25 07:14 71 01/10/25 03:27 36.6 C 82 18 116/73 94 Room Air 01/10/25 01:15 78 01/09/25 23:55 Room Air 01/09/25 23:24 36.6 C 74 16 141/93 H 94 Room Air Laboratory Results 01/09/25 05:28 01/09/25 05:28 PG Care Time/CCT Total # of Minutes Spent Total Time Spent with Patient: Total time spent is greater than 50% in coordination of care (as documented) at patient's floor/unit and/or counseling patient: Coding Level of Care Code 70339 SUB INP/OBS CARE 2/35MIN Diagnoses 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
[2025-01-10 12:18] VITALS: BP 142/82; PULSE 69; TEMP 97.5; O2SAT 97
--- NOTE | 2025-01-10 12:20 | Procedure Note ---
Procedure Note Date of Service January 10, 2025 Procedure: Pigtail chest tube removal Circus Trainer: Dr. Eric Croonel Indication: Resolving chylothorax Consent: Verbal consent was obtained from the patient Anesthesia: None Procedure: Under sterile measures and aseptic precautions, dressing of the pigtail catheter was removed Pigtail catheter was removed on examination of the patient, it was found to be intact. Site was cleaned with alcohol swab, Vaseline gauze was applied on top of it followed by 4 x 4 and Medipore tape Patient tolerated the procedure well Complications: None Blood loss: None [facility] Procedure Codes (Charges) Pulmonary/Thoracic Procedure 1: Pulmonary and Thoracic: 63989 Remove lung catheter Coding CPT Codes Pulmonary/Thoracic - Pulmonary and Thoracic: 58613 Remove lung catheter ([id number]) Additional Codes Date of Service (PG.SURGERY)
[2025-01-10] MEDS: FUROSEMIDE 20 MG TAB PO SCH (12:35)
--- NOTE | 2025-01-10 18:25 | Discharge Summary ---
Discharge Summary Date of Service January 10, 2025 Principal Dx & Hospital Course #1 = Principal Diagnosis (1) Chylothorax: (2) Leg edema, left: (3) On total parenteral nutrition (TPN): Ana Delarosa is a 64-year-old male with PMH of invasive high-grade metastatic bladder cancer. He presented on 01/06 for SOB. Recent thoracentesis for pleural effusion. Patient received a chest tube in the emergency department and will trial parenteral nutrition for minimum of 2 days. #Pleural effusion/chylothorax Patient recently had a thoracentesis on 12/30 that drained 1400 mL of cloudy white fluid; procedure terminated due to concern for nutritional depletion/possible chylothorax CXR on 01/07 revealed decrease in right pleural effusion Pulmonary consult appreciated Managed with Chest tube placed in the ED on 01/06 draining less chylous fluid Bowel rest P.o. medications okay Trial of parenteral nutrition x 2 days + octreotide Chest tube removed on 01/10/2025 Recommended low fat diet - received dietitian education Outpatient pulm follow up for pleural catheter #LLE edema US Doppler of the left lower extremity revealed no DVT Thigh high BUCKY hose application to LLE #Prostate cancer/Secondary malignant neoplasm thoracic vertebra TURBTs x 2; last on 12/01/2024 Continue tamsulosin chemotherapy to be completed as an outpatient #Anemia Chronic; Hgb 12.4 on arrival No signs of active bleeding on clinical exam Patient reports mild hematuria when his Ferrara catheter was removed on 12/26 H and H stable #MICHELE / CKD Improved Avoid nephrotoxic agents where possible Discharged home Admission HPI Per Admitting Provider [place] is a 64-year-old male with PMH of invasive high-grade metastatic bladder cancer and CKD stage IIIb. He presented on 01/06 for SOB/dyspnea. Patient reports his difficulty with breathing has been ongoing for the past 10 years, but started to go downhill in September. He was hospitalized in September for acute hypoxic respiratory failure requiring ICU/intubation. Recent diagnosis of metastatic bladder cancer. Patient did have a thoracentesis a couple weeks back with Dr. Joyner, and reports that his breathing substantially increased for 2 to 3 days after this, but then subsequently returned. He normally experiences the trouble breathing when walking up steps in his house. Additionally, he does endorse orthopnea. No supplemental oxygen at baseline or CPAP at night. Patient denies any pain at this time. His main concerns are sleeping, as he has had difficulty sleeping past few nights. Patient took his regular morning medicine last night; no recent change in medications. No sick contacts. He does not use a walker or cane at baseline. No history of blood clots in his legs or lungs. Patient did have his Ferrara catheter removed on 12/26 after 3 months. He has had some dribbling and urinary incontinence since, and has been using diapers/briefs at home. Additionally, shortly after his Ferrara catheter was removed, he developed swelling in his left lower extremity x 7 to 8 days; no redness or pain. Patient is a former tobacco smoker but quit 3 years ago. He denies chewing tobacco or recent alcohol use. Patient's vitals are stable at time admission. 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 Patient denies fever, chills, night-sweats, fall, syncope, chest pain, chest palpitations, pleuritic CP, hemoptysis, vomiting, diarrhea, burning with urination, or numbness/tingling in the arms. Discharge Exam Constitutional: No acute distress, frail-appearing HEENT: EOMI, PERRLA Respiratory system: Decreased air entry on the right side, no wheeze, rhonchi CVS: S1-S2 positive, no murmurs or gallops Abdomen: Soft, nontender, nondistended, positive bowel sounds x4 Extremities: +2 pulses bilaterally radialis/ dorsalis pedis, no cyanosis, Neuro: Awake alert oriented x3 Psych: Normal mood and affect Discharge Plan Discharge Items Patient Disposition: Home - Self-Care Reason For Visit: CHYLOTHORAX Discharge Diagnosis: Chylothorax Invasive bladder cancer Activity: Resume your previous activity Non-emergency contact: Primary Care Provider Call non-emergency contact if: you have any medication questions and your sympto ms worsen Follow-up/Referrals: Stacy Topete CRNP [Primary Care Provider] - Diet: Low Fat Diet Comment: Follow dietitian recommendations Addtl Attending Provider Instructions: Follow up with primary care in 5-7 days Pulmonary in 1 week Oncology / Urology in 1-2 weeks Pending Studies at Discharge: No Stand-Alone Forms: My [facility] [employer], Smoking Cessation Medications and DC Order Prescriptions: New furosemide 20 mg Tablet 20 mg PO QAM Qty: 30 0RF Continued phenazopyridine [Pyridium] 200 mg tablet 200 mg PO Q8H PRN (Reason: pain) Qty: 10 0RF Rx Instructions: PER PT "HAVE BEEN TAKING 1 TAB DAILY, JUST BECAUSE". tamsulosin 0.4 mg capsule 0.4 mg PO HS oxybutynin chloride 5 mg tablet 5 mg PO UD PRN (Reason: Bladder Spasms) Rx Instructions: 1 TABLET ORALLY EVERY 8 HOURS NEEDED FOR BLADDER SPASMS famotidine [Pepcid] 20 mg Tablet 20 mg PO HS naproxen sodium [Aleve] 220 mg Tablet 440 mg PO BID PRN (Reason: Pain) oxycodone-acetaminophen 7.5-325 mg Tablet 1 tab PO Q8H PRN (Reason: Pain) bisacodyl [Dulcolax (bisacodyl)] 5 mg Tablet,Delayed Release (Dr/Ec) 5 mg PO HS PRN (Reason: Constipation) polyethylene glycol 3350 [Miralax] 17 gram/dose Powder 17 g PO DAILY PRN (Reason: Constipation) Discharge Orders: Discharge Order (Routine); Ordered 01/10/25 Ordered By: Carmel Oropeza Admission Data Admit Date/Time: 01/06/25 18:17 Attending Provider: Carmel Oropeza Admit Provider: Solomon Alfonso Primary Care Provider: Stacy Topete Other Providers: Eric Coronel; Solomon Alfonso Other Interventions: Discharge Summary Assessment (RN) Last Done: 01/10/25 13:04 Hospital Stay Data Consultations 01/06/25 16:41 Consult Pulmonology Stat ED Decision to Admit Stat Diagnostic Imagining Performed 01/06/25 13:41 US venous doppler LE LT Stat 01/06/25 16:51 US point of care ultrasound Urgent Pending Results Patient Have Any Pending Studies at Discharge: No Discharge Instructions Given to Patient (Per Discharging Provider) Follow up with primary care in 5-7 days Pulmonary in 1 week Oncology / Urology in 1-2 weeks Total Time Total Time Spent Total Time Spent (In Minutes): 40 min Coding Level of Care Code 74650 INP/OBS DISCH >30 MIN Diagnoses 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
== END 2025-01-10 13:51 | disposition home or self-care (01) | DRG 187 ==
LOC: ED 13:15 → SUATTDRO 18:17 → 2E 18:17